=== PATIENT | female | born 1940 | race Caucasian/White ===

== ENCOUNTER 2017-09-08 16:22 | Inpatient (IN) | payer MEDICARE ==
[~2017-09-08] VITALS: Ht 162.6 cm; Wt 49.0 kg
[2017-09-08] VITALS (12 sets, daily range): BP systolic 74–129; BP diastolic 47–80
[~2017-09-08 16:22] MED LIST: ALBU8.5H IH; ALLO100T70 PO; AMLO-96 PO; AMOX-362 PO; ASPI-816 PO; CALC-734 PO; CHOL10005 PO; COLE3.756 PO; DIPH0.5D12 IM; DOCU-416 PO; ESOM40CA42 PO; EVOL140S PO; EVOL140S SC; EVOL140S SQ; EZET10TA41 PO; MULT-27 PO; OMEG-11 PO; OXYC-854 PO; PNEU0.5D3 IM; PRAV20TA65 PO; RANI-320 PO; RANI-324 PO; TRAZ-156 PO; UBID30CA27 PO; ZOLE5INF IV
[2017-09-08] MEDS ORDERED: NS(*) 0.9% 1000 ML BAG 1,000 ML IV ONE ×2 (16:34→17:15)
[2017-09-08] MEDS ORDERED: ALBUTEROL/IPRATROPIUM 3 ML NEB NEB ONE (16:35)
--- NOTE | 2017-09-08 16:38 | ER Report ---
History and Physical Time Seen By : 16:38 Hx. of Stated Complaint: PT HAD GALL BLADDER REMOVED FRIDAY AND EVER SINCE HAS BEEN WEAK AND DIZZY AND POOR APPETITE HPI/ROS onesimo released from the hospital yesterday sent home on oxygen Allergies: Coded Allergies: erythromycin base (Verified Allergy, Mild, epigastric pain, 09/06/17) atorvastatin (Verified Adverse Reaction, Intermediate, muscle pain in legs., 09/06/17) WILBERTO Inhibitors (Verified Adverse Reaction, Mild, cough, 09/06/17) NSAIDS (Non-Steroidal Anti-Inflamma (Unverified Adverse Reaction, Mild, upset stomach, 09/06/17) valsartan (Verified Adverse Reaction, Unknown, ineffective, 09/06/17) Home Meds Active Scripts Docusate Sodium (COLACE) 100 Mg Capsule, 1 CAP PO BID, #30 CAP 0 Refills TAKE WITH A FULL GLASS OF WATER Prov:SNOW ALVARADO MD 09/06/17 Oxycodone Hcl/Acet 5/325 Mg (ENDOCET 5-325 TABLET) 1 Each Tablet, 1-2 TAB PO Q4H Y for PAIN, #30 TAB 0 Refills Prov:SNOW ALVARADO MD 09/06/17 Trazodone Hcl (TRAZODONE HCL) 50 Mg Tablet, 50 MG PO QHS Y for insomnia, #90 TAB 2 Refills Prov:KATRINA WINTERS MD 03/31/17 Ranitidine Hcl (RANITIDINE HCL) 300 Mg Tablet, 300 MG PO QDAY, #90 TAB 1 Refill Prov:KATRINA WINTERS MD 03/17/17 Allopurinol (ALLOPURINOL) 100 Mg Tablet, 2 TAB PO QDAY, #180 TAB 4 Refills Prov:KATRINA WINTERS MD 11/27/16 Reported Medications Evolocumab (Repatha Syringe) 140 Mg/Ml Syringe, 140 MG SQ Q2WK 09/06/17 Amlodipine Besylate (AMLODIPINE BESYLATE) 5 Mg Tablet, 1 TAB PO BID, TAB 09/06/17 Aspirin (Children's Aspirin) 81 Mg Tab.chew, 1 TAB PO QDAY, #100 TAB.CHEW 4 Refills 03/29/15 Cholecalciferol (Vitamin D3) (VITAMIN D3) 1,000 Unit Tablet, 2 TAB PO QDAY 10/10/14 Calcium Carbonate/Vitamin D3 (CALCIUM 500 + D TABLET) 1 Each Tablet, 1 TAB PO QDAY 10/10/14 Mu-Vits-Min Th/Lycopene/Lutein (CENTRUM SILVER TABLET) 1 Each Tablet, 1 TAB PO QDAY 10/10/14 Discontinued Reported Medications Ubidecarenone (COQ-10) 30 Mg Capsule, 30 MG PO, CAPSULE 05/07/16 [place]-3 Fatty Acids/Fish Oil (FISH OIL 1,000 MG CAPSULE) 1 Each Capsule, 1 CAP PO TID, CAPSULE 10/10/14 Zoledronic Acid/Mannitol&Water (RECLAST 5 MG/100 ML SOLUTION) 5 Mg/100 Ml Infus..btl, 5 MG IV last dose 10/10/14 Discontinued Scripts Evolocumab (Repatha Syringe) 140 Mg/Ml Syringe, 140 MG SC Q2WK, #1 SYR 2 Refills Prov:KATRINA WINTERS MD 05/30/17 Albuterol Sulfate 90 Mcg/Act (PROAIR HFA 90 MCG/ACT) 8.5 Gm Hfa.aer.ad, 2 PUFF IH Q4-6H Y for SHORTNESS OF BREATH, #1 INHALER 12 Refills Prov:KATRINA WINTERS MD 03/05/17 Amoxicillin (AMOXICILLIN) 500 Mg Capsule, 4 CAP PO DIRECTED, #4 CAPSULE 4 capsules 1 hour before dental procedure Prov:KATRINA WINTERS MD 01/17/17 Amlodipine Besylate (AMLODIPINE BESYLATE) 5 Mg Tablet, 1.5 TAB PO QDAY, #135 TAB 4 Refills Prov:KATRINA WINTERS MD 11/27/16 Past Medical/Surgical History onesimo 2 days ago released yesterday Reviewed Nurses Notes: Yes Old Medical Records Reviewed: Yes Hx Smoking: No Smoking Status: Never Smoker Exposure to Second Hand Smoke?: No Hx Substance Use Disorder: No Hx Alcohol Use: No Family History of: HTN Constitutional Vital Sign - Last 24 Hours 09/08/17 09/08/17 09/08/17 09/08/17 16:22 16:26 16:26 16:29 Temp 98.4 Pulse ??? 92 Resp 18 B/P (MAP) 178/115 (136) 169/89 (115) Pulse Ox 74 O2 Delivery Room Air 09/08/17 09/08/17 09/08/1718/17 16:37 16:45 16:45 16:52 Pulse 86 86 87 Resp 16 14 14 Pulse Ox 95 93 O2 Delivery Nasal Cannula O2 Flow Rate 3.5 09/08/17 09/08/17 09/08/17 09/08/17 16:52 17:00 17:07 17:12 Pulse 87 88 89 Resp 27 19 30 B/P (MAP) 160/86 (110) Pulse Ox 98 94 94 09/08/17 09/08/17 09/08/17 09/08/17 17:26 17:27 17:30 17:42 Pulse 89 93 Resp 23 21 B/P (MAP) 155/77 (103) Pulse Ox 95 92 O2 Flow Rate 5.0 09/08/17 09/08/17 09/08/17 09/08/17 18:00 18:12 18:22 18:27 Pulse 94 97 Resp 15 19 B/P (MAP) 165/86 (112) 187/96 (126) Pulse Ox 86 95 09/08/17 09/08/17 09/08/17 09/08/17 18:29 18:29 18:30 18:32 Pulse 99 Resp 20 B/P (MAP) 195/99 (131) 185/98 (127) Pulse Ox 96 O2 Delivery Non-Rebreather O2 Flow Rate 10.0 09/08/17 09/08/17 09/08/17 09/08/17 18:39 18:42 18:57 19:00 Pulse 105 108 110 Resp 22 23 18 B/P (MAP) 191/99 (129) Pulse Ox 94 93 09/08/17 09/08/17 19:03 19:08 Pulse 105 Resp 32 B/P (MAP) 177/100 (125) Pulse Ox 94 Intake and Output 09/08/17 09/08/17 09/09/17 15:00 23:00 07:00 Intake Total 2050 ml Balance 2050 ml Physical Exam 77 year old alert head normocephalic and atraumatic, yesenia, tm non reddened, throat non reddened, mouth dry, heart rate regular rate 86, lungs crackles right base , abdomen soft mildly tender upper abdomen bandaids in place Medical Decision Making Data Points Result Diagram: 09/08/17 1645 09/08/17 1645 Laboratory Hematology Test 09/08/17 00:00 09/08/17 16:45 Urine Color Yellow Urine Clarity Clear Urine pH 6.0 pH (4.8-9.5) Urine Specific [place] 1.019 Urine Protein Negative mg/dL (NEGATIVE) Urine Glucose (UA) 50 mg/dL (NEGATIVE) Urine Ketones Negative mg/dL (NEGATIVE) Urine Blood Negative (NEGATIVE) Urine Nitrite Negative (NEGATIVE) Urine Bilirubin Negative (NEGATIVE) Urine Urobilinogen Negative mg/dL (0.2-1.9) Urine Leukocyte Esterase Negative (NEGATIVE) Urine RBC None /HPF (0-2/HPF) Urine WBC 1 /HPF (0-5/HPF) Urine Squamous Epithelial Cells Few /LPF (</=FEW) Urine Bacteria Negative /HPF (NONE-FEW) Urine Mucus None /HPF (NONE-FEW) Lactate 4.2 mmol/L (0.7-2.1) Amylase Level 41 U/L (0-110) Lipase 33 U/L (23-300) Red Blood Count 4.93 M/uL (4.17-5.56) Mean Corpuscular Volume 88.6 fL (80.0-96.0) Mean Corpuscular Hemoglobin 29.4 pg (26.0-33.0) Mean Corpuscular Hemoglobin Concent 33.2 g/dL (32.0-36.0) Red Cell Distribution Width 13.5 % (11.5-14.5) Mean Platelet Volume 7.8 fL (7.2-11.1) Neutrophils (%) (Auto) 91.4 % (39.4-72.5) Lymphocytes (%) (Auto) 3.7 % (17.6-49.6) Monocytes (%) (Auto) 4.6 % (4.1-12.4) Eosinophils (%) (Auto) 0.1 % (0.4-6.7) Basophils (%) (Auto) 0.2 % (0.3-1.4) Nucleated RBC Relative Count (auto) 0.0 /100WBC Neutrophils # (Auto) 10.4 K/uL (2.0-7.4) Lymphocytes # (Auto) 0.4 K/uL (1.3-3.6) Monocytes # (Auto) 0.5 K/uL (0.3-1.0) Eosinophils # (Auto) 0.0 K/uL (0.0-0.5) Basophils # (Auto) 0.0 K/uL (0.0-0.1) Nucleated RBC Absolute Count (auto) 0.00 K/uL Peripheral Blood Smear Yes Y/N D-Dimer Quantitative (PE/DVT) 3.82 ug/ml (0-0.50) Sodium Level 130 mmol/L (137-145) Potassium Level 3.9 mmol/L (3.5-5.0) Chloride Level 90 mmol/L (98-107) Carbon Dioxide Level 25 mmol/L (22-31) Blood Urea Nitrogen 18 mg/dl (7-18) Creatinine 0.80 mg/dl (0.52-1.04) Glomerular Filtration Rate Calc > 60.0 Random Glucose 132 mg/dl (75-110) Calcium Level 9.2 mg/dl (8.4-10.2) Magnesium Level 1.7 mg/dl (1.7-2.2) Total Bilirubin 3.0 mg/dl (0.2-1.3) Aspartate Amino Transf (AST/SGOT) 206 U/L (0-35) Alanine Aminotransferase (ALT/SGPT) 586 U/L (0-56) Alkaline Phosphatase 188 U/L (0-126) Troponin I < 0.012 ng/ml B-Type Natriuretic Peptide 375 pg/ml (0-100) Total Protein 7.4 gm/dl (6.3-8.2) Albumin 3.9 g/dl (3.5-5.0) Chemistry Test 09/08/17 00:00 09/08/17 16:45 Urine Color Yellow Urine Clarity Clear Urine pH 6.0 pH (4.8-9.5) Urine Specific [place] 1.019 Urine Protein Negative mg/dL (NEGATIVE) Urine Glucose (UA) 50 mg/dL (NEGATIVE) Urine Ketones Negative mg/dL (NEGATIVE) Urine Blood Negative (NEGATIVE) Urine Nitrite Negative (NEGATIVE) Urine Bilirubin Negative (NEGATIVE) Urine Urobilinogen Negative mg/dL (0.2-1.9) Urine Leukocyte Esterase Negative (NEGATIVE) Urine RBC None /HPF (0-2/HPF) Urine WBC 1 /HPF (0-5/HPF) Urine Squamous Epithelial Cells Few /LPF (</=FEW) Urine Bacteria Negative /HPF (NONE-FEW) Urine Mucus None /HPF (NONE-FEW) Lactate 4.2 mmol/L (0.7-2.1) Amylase Level 41 U/L (0-110) Lipase 33 U/L (23-300) White Blood Count 11.4 k/uL (4.5-11.0) Red Blood Count 4.93 M/uL (4.17-5.56) Hemoglobin 14.5 g/dL (12.0-16.0) Hematocrit 43.7 % (34.0-47.0) Mean Corpuscular Volume 88.6 fL (80.0-96.0) Mean Corpuscular Hemoglobin 29.4 pg (26.0-33.0) Mean Corpuscular Hemoglobin Concent 33.2 g/dL (32.0-36.0) Red Cell Distribution Width 13.5 % (11.5-14.5) Platelet Count 244 K/uL (150-450) Mean Platelet Volume 7.8 fL (7.2-11.1) Neutrophils (%) (Auto) 91.4 % (39.4-72.5) Lymphocytes (%) (Auto) 3.7 % (17.6-49.6) Monocytes (%) (Auto) 4.6 % (4.1-12.4) Eosinophils (%) (Auto) 0.1 % (0.4-6.7) Basophils (%) (Auto) 0.2 % (0.3-1.4) Nucleated RBC Relative Count (auto) 0.0 /100WBC Neutrophils # (Auto) 10.4 K/uL (2.0-7.4) Lymphocytes # (Auto) 0.4 K/uL (1.3-3.6) Monocytes # (Auto) 0.5 K/uL (0.3-1.0) Eosinophils # (Auto) 0.0 K/uL (0.0-0.5) Basophils # (Auto) 0.0 K/uL (0.0-0.1) Nucleated RBC Absolute Count (auto) 0.00 K/uL Peripheral Blood Smear Yes Y/N D-Dimer Quantitative (PE/DVT) 3.82 ug/ml (0-0.50) Glomerular Filtration Rate Calc > 60.0 Calcium Level 9.2 mg/dl (8.4-10.2) Magnesium Level 1.7 mg/dl (1.7-2.2) Total Bilirubin 3.0 mg/dl (0.2-1.3) Aspartate Amino Transf (AST/SGOT) 206 U/L (0-35) Alanine Aminotransferase (ALT/SGPT) 586 U/L (0-56) Alkaline Phosphatase 188 U/L (0-126) Troponin I < 0.012 ng/ml B-Type Natriuretic Peptide 375 pg/ml (0-100) Total Protein 7.4 gm/dl (6.3-8.2) Albumin 3.9 g/dl (3.5-5.0) Coagulation Test 09/08/17 16:45 D-Dimer Quantitative (PE/DVT) 3.82 ug/ml Urinalysis Test 09/08/17 00:00 Urine Color Yellow Urine Clarity Clear Urine pH 6.0 pH (4.8-9.5) Urine Specific [place] 1.019 Urine Protein Negative mg/dL (NEGATIVE) Urine Glucose (UA) 50 mg/dL (NEGATIVE) Urine Ketones Negative mg/dL (NEGATIVE) Urine Blood Negative (NEGATIVE) Urine Nitrite Negative (NEGATIVE) Urine Bilirubin Negative (NEGATIVE) Urine Urobilinogen Negative mg/dL (0.2-1.9) Urine Leukocyte Esterase Negative (NEGATIVE) Urine RBC None /HPF (0-2/HPF) Urine WBC 1 /HPF (0-5/HPF) Urine Squamous Epithelial Cells Few /LPF (</=FEW) Urine Bacteria Negative /HPF (NONE-FEW) Urine Mucus None /HPF (NONE-FEW) EKG/Imaging EKG Interpretation q wave III discussed w anesthesiology, trop tonight is negative Imaging FACILITY: [facility] PATIENT NAME: Meenakshi De La Garza : 1940 MR: [id number] V: [id number] EXAM DATE: ORDERING PHYSICIAN: NEVILLE SHI TECHNOLOGIST: [place] [facility] [place] Meenakshi De La Garza : 1940 Visit/Account:[id number] Date of Sevice: 09/08/2017 EXAMINATION: CTA of the chest with IV contrast CT abdomen/pelvis with IV contrast HISTORY: Dyspnea. Low O2 sats. Elevated LFTs. Post cholecystectomy. TECHNIQUE: Pulmonary embolus protocol - Thin-slice axial imaging of the chest was performed during maximal pulmonary arterial opacification with IV contrast. 3D slab MIPs and 2D reconstructions in the coronal and sagittal planes were performed to aid pulmonary embolus detection. Sensory Scientist images have been stored on PACS. Axial CT images of the abdomen and pelvis were then obtained with IV contrast, with coronal and sagittal 2D reconstructed images. One of the following dose optimization techniques was utilized in the performance of this exam: Automated exposure control; adjustment of the mA and/ or kV according to the patient's size; or use of an iterative reconstruction technique. Specific details can be referenced in the facility's radiology CT exam operational policy. Contrast: 75 mL of IV Isovue-370. COMPARISON: CT abdomen/pelvis 09/06/2017. FINDINGS: Chest: Pulmonary arteries: The pulmonary arteries are well opacified, without suspicious filling defect. Heart, aorta, and great vessels: Normal caliber thoracic aorta. Vascular calcifications, including coronary artery calcifications. Borderline cardiac enlargement. No pericardial effusion. Lungs and pleura: Small to moderate layering right pleural effusion. There is consolidation and volume loss in the posterior inferior right lower lobe which may all be due to atelectasis, although superimposed infiltrate is not excluded. Trace amount of layering left-sided pleural fluid, with mild left basilar atelectasis. Small focus of patchy airspace disease in the right upper lobe laterally. There is mild interlobular septal thickening in the mid and upper lungs which may represent pulmonary edema. The central airways are patent. No pneumothorax. Mediastinum and joe: Negative. Chest wall: Negative. Bones: No acute osseous findings. Scattered degenerative changes along spine. Abdomen/pelvis: Liver: There is a moderate-sized crescentic collection of complex loculated fluid surrounding the right lobe of the liver, extending along the anterior and lateral margin of the right hepatic lobe and continuing superiorly along the dome of the liver. This crescentic fluid collection measures up to 2.8 cm in thickness. This collection demonstrates several bubbles of internal air with a thin rim of peripheral enhancement. Fluid is in continuity with the gallbladder fossa where there is an additional small pocket of complex fluid. CT appearance is suspicious for a bile leak with associated biloma. Superimposed infection is not excluded. No parenchymal liver mass. The hepatic veins and portal veins are patent. Gallbladder and bile ducts: The gallbladder is surgically absent. No bile duct dilatation. Spleen: Negative. Pancreas: Negative. Adrenal glands: Negative. Kidneys: Subcentimeter hypodensities in both kidneys likely represent small cysts. Bowel and peritoneum: The small bowel and colon are normal in caliber. No bowel obstruction. Small amount of free intraperitoneal air related to the recent surgery. There is no other free fluid present in the abdomen or pelvis. Pelvic structures: Negative. Lymph node assessment: Negative. Vessels: Moderate vascular calcifications. Normal caliber abdominal aorta. The IVC is patent. Musculoskeletal: Scattered degenerative changes along the spine. No acute osseous findings. Body wall: Surgical changes along the anterior abdominal wall related to the recent surgical procedure. No discrete fluid collection or hematoma along the abdominal wall. IMPRESSION: 1. No evidence of pulmonary embolism. 2. Small to moderate layering right pleural effusion, with a trace of left- sided pleural fluid.2. Bibasilar atelectasis, greater on the right. Superimposed infiltrate not excluded. Additional small focus of patchy airspace disease in the right upper lobe laterally may be infectious or inflammatory. Likely mild interstitial edema. 4. New surgical changes in the abdomen compatible with the recent cholecystectomy. 5. Complex loculated crescentic fluid collection surrounding the anterior, superior, and lateral aspect of the right hepatic lobe, in continuity with the gallbladder fossa, suspicious for a bile leak and associated biloma. This crescentic collection measures up to 2.8 cm in thickness and approximately 15 cm in length, encasing the right hepatic lobe. 6. Small amount of scattered free intraperitoneal air, within normal limits for the postsurgical timeframe. No additional free fluid in the abdomen or pelvis. Findings were discussed with NEVILLE SHI at 09/08/2017 7:04 PM. Report Dictated By: Sánchez Manzo MD at 09/08/2017 6:42 PM Report E-Signed By: Sánchez Manzo MD at 09/08/2017 7:04 PM WSN:[id number]: [facility] ED Course/Re-evaluation Clinical Indication for ER IV: Hydration ED Course iv ns 1 liter was given , increased sob after iv infusion wheezing sats dropped lasix 40 iv , young cath and duoneb given Re-evaluation dr alvarado called and saw the patient in the er will take her to or from er. a dose of zosyn and pepcid given er Decision to Disposition Date: Sep 08, 2017 Decision to Disposition Time: 19:06 Depart Departure Latest Vital Signs Vital Signs Date Time Temp Pulse Resp B/P (MAP) Pulse Ox O2 Delivery O2 Flow Rate FiO2 09/08/17 19:08 105 32 94 09/08/17 19:03 177/100 (125) 09/08/17 18:29 Non-Rebreather 10.0 09/08/17 16:26 98.4 Impression: Primary Impression: Biloma following surgery Additional Impressions: Pleural effusion Acute electrocardiogram changes Condition: Condition Unchanged Disposition: ADMIT FROM ER TO OR Referrals: KATRINA WINTERS MD (PCP) Problem Qualifiers NEVILLE SHI APRN-C Sep 08, 2017 16:38
--- NOTE | 2017-09-08 16:41 | EKG ---
FACILITY: [facility] - [place] PATIENT NAME: SAE FREY : [id number] MR: [id number] V: [id number] EXAM DATE: ORDERING PHYSICIAN: NEVILLE SHI TECHNOLOGIST: PATRICIA Test Reason : WEAKNESS Blood Pressure : / mmHG Vent. Rate : 086 BPM Atrial Rate : 086 BPM P-R Int : 136 ms QRS Dur : 082 ms QT Int : 370 ms P-R-T Axes : 024 004 002 degrees QTc Int : 442 ms Sinus rhythm Possible left atrial enlargement Decreased R wave progression anteriorly Allowing for differences in lead placement - fairly similar to previous EKGs Confirmed by FLORENTIN WOODALL ([id number]) on 09/08/2017 8:00:48 PM Referred By: JOSE Confirmed By:FLORENTIN WOODALL
[2017-09-08 16:56] LABS: PLATELET COUNT, AUTOMATED 244 K/uL (150-450)
--- NOTE | 2017-09-08 17:09 | RADIOLOGY IMAGING REPORT ---
FACILITY: [facility] PATIENT NAME: Meenakshi De La Garza : 1940 MR: [id number] V: [id number] EXAM DATE: ORDERING PHYSICIAN: NEVILLE SHI TECHNOLOGIST: Location: [facility] Patient: Meenakshi De La Garza : 1940 Visit/Account:[id number] Date of Sevice: 09/08/2017 CHEST SINGLE AP INDICATION: RESP DISTRESS COMPARISON: 04/03/2016 FINDINGS: Cardiac silhouette is enlarged. The lung volumes are hypoventilated. There is a small right pleural effusion present with underlying atelectasis versus infiltrate. Atelectasis present at the left lung base.. There is mild dilatation of the colon noted underneath the left hemidiaphragm. IMPRESSION: 1. Pulmonary hypoventilation with bibasilar atelectasis and right pleural effusion. Infiltrate is n ot excluded at the right lung base. 2. Mild gaseous distention of the descending colon Report Dictated By: Jeb Campbell at 09/08/2017 5:00 PM Report E-Signed By: Jeb Campbell at 09/08/2017 5:05 PM WSN:[id number]
[2017-09-08] MEDS ORDERED: IOPAMIDOL 76% 75 ML INFUS BTL 75 ML ONE (17:19)
[2017-09-08] MEDS ORDERED: NS 0.9% 50 ML VIAL 50 ML ONE (17:19)
[2017-09-08] MEDS ORDERED: fentaNYL CITR 100 MCG/2 ML AMP IVP ONE ×2 (17:55→19:05)
[2017-09-08] MEDS ORDERED: ALBUTEROL 2.5 MG/3 ML NEB NEB ONE (18:25)
[2017-09-08] MEDS ORDERED: FUROSEMIDE 40 MG/4 ML VIAL IVP ONE (18:45)
--- NOTE | 2017-09-08 19:09 | RADIOLOGY IMAGING REPORT ---
FACILITY: [facility] PATIENT NAME: Meenakshi De La Garza : 1940 MR: [id number] V: [id number] EXAM DATE: ORDERING PHYSICIAN: NEVILLE SHI TECHNOLOGIST: Location: [facility] Patient: Meenakshi De La Garza : 1940 Visit/Account:[id number] Date of Sevice: 09/08/2017 EXAMINATION: CTA of the chest with IV contrast CT abdomen/pelvis with IV contrast HISTORY: Dyspnea. Low O2 sats. Elevated LFTs. Post cholecystectomy. TECHNIQUE: Pulmonary embolus protocol - Thin-slice axial imaging of the chest was performed during maximal pulmonary arterial opacification with IV contrast. 3D slab MIPs and 2D reconstructions in the coronal and sagittal planes were performed to aid pulmonary embolus detection. Industrial Electrical Technician images have been stored on PACS. Axial CT images of the abdomen and pelvis were then obtained with IV contrast, with coronal and sagit jose 2D reconstructed images. One of the following dose optimization techniques was utilized in the performance of this exam: Autom ated exposure control; adjustment of the mA and/or kV according to the patient's size; or use of an i terative reconstruction technique. Specific details can be referenced in the facility's radiology C T exam operational policy. Contrast: 75 mL of IV Isovue-370. COMPARISON: CT abdomen/pelvis 09/06/2017. FINDINGS: Chest: Pulmonary arteries: The pulmonary arteries are well opacified, without suspicious filling defect. Heart, aorta, and great vessels: Normal caliber thoracic aorta. Vascular calcifications, including c oronary artery calcifications. Borderline cardiac enlargement. No pericardial effusion. Lungs and pleura: Small to moderate layering right pleural effusion. There is consolidation and volu me loss in the posterior inferior right lower lobe which may all be due to atelectasis, although supe rimposed infiltrate is not excluded. Trace amount of layering left-sided pleural fluid, with mild lef t basilar atelectasis. Small focus of patchy airspace disease in the right upper lobe laterally. Ther e is mild interlobular septal thickening in the mid and upper lungs which may represent pulmonary josiane ma. The central airways are patent. No pneumothorax. Mediastinum and joe: Negative. Chest wall: Negative. Bones: No acute osseous findings. Scattered degenerative changes along spine. Abdomen/pelvis: Liver: There is a moderate-sized crescentic collection of complex loculated fluid surrounding the ri ght lobe of the liver, extending along the anterior and lateral margin of the right hepatic lobe and continuing superiorly along the dome of the liver. This crescentic fluid collection measures up to 2. 8 cm in thickness. This collection demonstrates several bubbles of internal air with a thin rim of pe ripheral enhancement. Fluid is in continuity with the gallbladder fossa where there is an additional small pocket of complex fluid. CT appearance is suspicious for a bile leak with associated biloma. Tubbs perimposed infection is not excluded. No parenchymal liver mass. The hepatic veins and portal veins are patent. Gallbladder and bile ducts: The gallbladder is surgically absent. No bile duct dilatation. Spleen: Negative. Pancreas: Negative. Adrenal glands: Negative. Kidneys: Subcentimeter hypodensities in both kidneys likely represent small cysts. Bowel and peritoneum: The small bowel and colon are normal in caliber. No bowel obstruction. Small a mount of free intraperitoneal air related to the recent surgery. There is no other free fluid present in the abdomen or pelvis. Pelvic structures: Negative. Lymph node assessment: Negative. Vessels: Moderate vascular calcifications. Normal caliber abdominal aorta. The IVC is patent. Musculoskeletal: Scattered degenerative changes along the spine. No acute osseous findings. Body wall: Surgical changes along the anterior abdominal wall related to the recent surgical procedu re. No discrete fluid collection or hematoma along the abdominal wall. IMPRESSION: 1. No evidence of pulmonary embolism. 2. Small to moderate layering right pleural effusion, with a trace of left-sided pleural fluid.2. Bib asilar atelectasis, greater on the right. Superimposed infiltrate not excluded. Additional small focu s of patchy airspace disease in the right upper lobe laterally may be infectious or inflammatory. Lik jose mild interstitial edema. 4. New surgical changes in the abdomen compatible with the recent cholecystectomy. 5. Complex loculated crescentic fluid collection surrounding the anterior, superior, and lateral aspe ct of the right hepatic lobe, in continuity with the gallbladder fossa, suspicious for a bile leak an d associated biloma. This crescentic collection measures up to 2.8 cm in thickness and approximately 15 cm in length, encasing the right hepatic lobe. 6. Small amount of scattered free intraperitoneal air, within normal limits for the postsurgical time frame. No additional free fluid in the abdomen or pelvis. Findings were discussed with NEVILLE SHI at 09/08/2017 7:04 PM. Report Dictated By: Sánchez Manzo MD at 09/08/2017 6:42 PM Report E-Signed By: Sánchez Manzo MD at 09/08/2017 7:04 PM WSN:[id number]
[2017-09-08] MEDS ORDERED: PIPERACILLIN/TAZO*3.375GM VIAL 3.375 GM in NS(*) 0.9% 100 ML ADDVANT BAG 100 ML IVPB ONE (19:10)
[2017-09-08] MEDS ORDERED: FAMOTIDINE(*) 20MG/50ML PREMIX 50 ML IVPB ONE (19:15)
[2017-09-08] MEDS ORDERED: LR(*) 1000 ML BAG 1,000 ML ONE (19:17)
--- NOTE | 2017-09-08 19:22 | Gen Surgery History & Physical ---
History of Present Illness Chief Complaint Abdominal pain, shortness of breath, weakness History of Present Illness 77-year-old female, postoperative day 2 from a laparoscopic cholecystectomy for cholecystitis, discharged to home yesterday, presents with worsening abdominal pain and shortness of breath as well as weakness that started last evening. She presented to the emergency room where her white count is mildly elevated, her transaminases and total bilirubin are mildly elevated, and CT scan is consistent with a biloma. She is being admitted and taken to surgery to address this. History Problems: (1) S/P laparoscopic cholecystectomy Status: Acute (2) Esophageal reflux Status: Chronic (3) Age related osteoporosis Status: Chronic (4) Hypercholesterolemia Status: Chronic (5) Hypertension, benign Status: Chronic Home Meds Active Scripts Docusate Sodium (COLACE) 100 Mg Capsule, 1 CAP PO BID, #30 CAP 0 Refills TAKE WITH A FULL GLASS OF WATER Prov:SNOW ALVARADO MD 09/06/17 Oxycodone Hcl/Acet 5/325 Mg (ENDOCET 5-325 TABLET) 1 Each Tablet, 1-2 TAB PO Q4H Y for PAIN, #30 TAB 0 Refills Prov:SNOW ALVARADO MD 09/06/17 Trazodone Hcl (TRAZODONE HCL) 50 Mg Tablet, 50 MG PO QHS Y for insomnia, #90 TAB 2 Refills Prov:KATRINA WINTERS MD 03/31/17 Ranitidine Hcl (RANITIDINE HCL) 300 Mg Tablet, 300 MG PO QDAY, #90 TAB 1 Refill Prov:KATRINA WINTERS MD 03/17/17 Allopurinol (ALLOPURINOL) 100 Mg Tablet, 2 TAB PO QDAY, #180 TAB 4 Refills Prov:KATRINA WINTERS MD 11/27/16 Reported Medications Evolocumab (Repatha Syringe) 140 Mg/Ml Syringe, 140 MG SQ Q2WK 09/06/17 Amlodipine Besylate (AMLODIPINE BESYLATE) 5 Mg Tablet, 1 TAB PO BID, TAB 09/06/17 Aspirin (Children's Aspirin) 81 Mg Tab.chew, 1 TAB PO QDAY, #100 TAB.CHEW 4 Refills 03/29/15 Cholecalciferol (Vitamin D3) (VITAMIN D3) 1,000 Unit Tablet, 2 TAB PO QDAY 10/10/14 Calcium Carbonate/Vitamin D3 (CALCIUM 500 + D TABLET) 1 Each Tablet, 1 TAB PO QDAY 10/10/14 Mu-Vits-Min Th/Lycopene/Lutein (CENTRUM SILVER TABLET) 1 Each Tablet, 1 TAB PO QDAY 10/10/14 Discontinued Reported Medications Ubidecarenone (COQ-10) 30 Mg Capsule, 30 MG PO, CAPSULE 05/07/16 [place]-3 Fatty Acids/Fish Oil (FISH OIL 1,000 MG CAPSULE) 1 Each Capsule, 1 CAP PO TID, CAPSULE 10/10/14 Zoledronic Acid/Mannitol&Water (RECLAST 5 MG/100 ML SOLUTION) 5 Mg/100 Ml Infus..btl, 5 MG IV last dose 10/10/14 Discontinued Scripts Evolocumab (Repatha Syringe) 140 Mg/Ml Syringe, 140 MG SC Q2WK, #1 SYR 2 Refills Prov:KATRINA WINTERS MD 05/30/17 Albuterol Sulfate 90 Mcg/Act (PROAIR HFA 90 MCG/ACT) 8.5 Gm Hfa.aer.ad, 2 PUFF IH Q4-6H Y for SHORTNESS OF BREATH, #1 INHALER 12 Refills Prov:KATRINA WINTERS MD 03/05/17 Amoxicillin (AMOXICILLIN) 500 Mg Capsule, 4 CAP PO DIRECTED, #4 CAPSULE 4 capsules 1 hour before dental procedure Prov:KATRINA WINTERS MD 01/17/17 Amlodipine Besylate (AMLODIPINE BESYLATE) 5 Mg Tablet, 1.5 TAB PO QDAY, #135 TAB 4 Refills Prov:KATRINA WINTERS MD 11/27/16 Allergies: Coded Allergies: erythromycin base (Verified Allergy, Mild, epigastric pain, 09/06/17) atorvastatin (Verified Adverse Reaction, Intermediate, muscle pain in legs., 09/06/17) WILBERTO Inhibitors (Verified Adverse Reaction, Mild, cough, 09/06/17) NSAIDS (Non-Steroidal Anti-Inflamma (Unverified Adverse Reaction, Mild, upset stomach, 09/06/17) valsartan (Verified Adverse Reaction, Unknown, ineffective, 09/06/17) Patient History: FH: COPD (chronic obstructive pulmonary disease) FATHER, , Age:62 FH: [place] (myocardial infarction) FATHER, , Age:62 BROTHER, , Age:40 FH: hyperlipidemia FATHER, , Age:62 SISTER FH: hypertension FATHER, , Age:62 SISTER FH: renal cell carcinoma MOTHER, , Age:86 (kidney or pancreas) Gout FATHER, , Age:62 Review of Systems All Systems Reviewed/Normal: Yes, Except as Noted Respiratory: Shortness of Breath Gastrointestinal: Abdominal Pain Exam General Appearance: Alert, Awake, No Acute Distress, Afebrile Neuro: No Gross deficits Eyes: PERRLA GI: Other (soft, mild diffuse tenderness palpation greatest in the right upper quadrant.) Extremities: Warm, Perfused Medical Decision Making Data Points Result Diagram: 09/08/17 16409/08/17 164 Assessment and Plan Problems: (1) Biloma following surgery Status: Acute Assessment & Plan: Will admit, nothing by mouth, IV fluids, 2 OR for laparoscopy with evacuation of the perihepatic fluid, we'll look for any evidence of bleeding or bile leak, try to control it if possible, and place a drain. I have explained this plan including the procedure to the patient and her and they seem to be agreeable with proceeding with this plan. Condition Stable Time Spent: < 30 min Venous Thromboembolism VTE Risk Physician Assess for VTE Risk: Yes Patient's VTE Risk: Low VTE Diagnostic Test 2 Days Prior to Admit: No Antithrombotics Is Pt On Any Antithrombotics?: No Problem Qualifiers (1) Biloma following surgery: Encounter type: initial encounter Qualified Codes: T81.89XA - Other complications of procedures, not elsewhere classified, initial encounter; K66.8 - Other specified disorders of peritoneum SNOW ALVARADO MD Sep 08, 2017 19:22
[2017-09-08] MEDS ORDERED: ONDANSETRON 4 MG/2 ML VIAL ONE (20:04)
[2017-09-08] MEDS ORDERED: SUCCINYLCHOL CHL 200MG/10ML VL ONE (20:04)
[2017-09-08] MEDS ORDERED: PROPOFOL EMUL(*) 10MG/ML 20 ML 20 ML ONE (20:04)
[2017-09-08] MEDS ORDERED: LIDOCAINE MPF 1% 5 ML VIAL ONE (20:04)
[2017-09-08] MEDS ORDERED: DEXAMETHASONE SOD PHOS 10MG/ML ONE (20:04)
[2017-09-08] MEDS ORDERED: ROCURONIUM BROM 10 MG/ML 10 ML ONE (20:07)
[2017-09-08] MEDS ORDERED: PHENYLEPHRINE/NS/PF 0.4MG/10ML ONE (20:18)
[2017-09-08] MEDS ORDERED: HYDROmorphone HCL 2 MG/ML SDV ONE (21:24)
[2017-09-08] MEDS ORDERED: PROPOFOL(*)1000 MG/100 ML VIAL 100 ML ONE (21:33)
[2017-09-08] MEDS ORDERED: FLUSH 10 ML SYR IVP PRN (21:50)
[2017-09-08] MEDS ORDERED: ONDANSETRON 4 MG/2 ML VIAL IVP PRN (21:50)
--- NOTE | 2017-09-08 22:05 | Post Operative Progress Note ---
Post Operative Progress Note Date: Sep 08, 2017 Time: 21:50 Surgeon: [place] Dictation number: [id number] on M*Modal Mobile Fluency via cellphone dictation Anesthesia: GETA by Dr. Barnes Pre-Op Diagnosis: Postop bile leak with biloma Post-Op Diagnosis: YORDAN Findings: Leaking duct in gallbladder fossa Procedure(s): Exploratory laparoscopy Control of bile leak Abdominal washout Drain placement Specimen Removed:(May be N/A): None Complications: None Fluids: See anesthesia record Estimated Blood Loss: Minimal Date OP Note Dictated: Sep 08, 2017 Time OP Note Dictated: 21:51 SNOW ALVARADO MD Sep 08, 2017 22:05
[2017-09-08] MEDS: PROPOFOL(*)1000 MG/100 ML VIAL 100 ML IV PRN (22:14)
[2017-09-08] MEDS: NS(*) 0.9% 1000 ML BAG 1,000 ML IV PRN (22:15)
--- NOTE | 2017-09-08 22:21 | Hospitalist Consultation ---
History of Present Illness Requesting Physician Dr. Alvarado Reason for Consult Ventilator management Chief Complaint Abdominal pain History of Present Illness 77yo female with PMHx significant for recent laparoscopic cholecystectomy complicated by bile leak. She returned to the OR late today for surgical management. Anesthesia (Dr. Barnes) was concerned about her respiratory status and ability to be extubated immediately after surgery. He recommended keeping her intubated at least overnight and re-evaluating in the morning. Her pre-op evaluation did reveal a right-sided pleural effusion most likely a "sympathetic " effusion related to the bile leak. CT pulmonary angiogram was negative for PE. She did have fairly high oxygen requirement as well. The patient is currently sedated and not able to offer any information. History Problems: (1) Hypertension, benign Status: Chronic (2) Hypercholesterolemia Status: Chronic (3) Esophageal reflux Status: Chronic (4) S/P laparoscopic cholecystectomy Status: Acute Home Meds Active Scripts Docusate Sodium (COLACE) 100 Mg Capsule, 1 CAP PO BID, #30 CAP 0 Refills TAKE WITH A FULL GLASS OF WATER Prov:SNOW ALVARADO MD 09/06/17 Oxycodone Hcl/Acet 5/325 Mg (ENDOCET 5-325 TABLET) 1 Each Tablet, 1-2 TAB PO Q4H Y for PAIN, #30 TAB 0 Refills Prov:SNOW ALVARADO MD 09/06/17 Trazodone Hcl (TRAZODONE HCL) 50 Mg Tablet, 50 MG PO QHS Y for insomnia, #90 TAB 2 Refills Prov:KATRINA WINTERS MD 03/31/17 Ranitidine Hcl (RANITIDINE HCL) 300 Mg Tablet, 300 MG PO QDAY, #90 TAB 1 Refill Prov:KATRINA WINTERS MD 03/17/17 Allopurinol (ALLOPURINOL) 100 Mg Tablet, 2 TAB PO QDAY, #180 TAB 4 Refills Prov:KATRINA WINTERS MD 11/27/16 Reported Medications Evolocumab (Repatha Syringe) 140 Mg/Ml Syringe, 140 MG SQ Q2WK 09/06/17 Amlodipine Besylate (AMLODIPINE BESYLATE) 5 Mg Tablet, 1 TAB PO BID, TAB 09/06/17 Aspirin (Children's Aspirin) 81 Mg Tab.chew, 1 TAB PO QDAY, #100 TAB.CHEW 4 Refills 03/29/15 Cholecalciferol (Vitamin D3) (VITAMIN D3) 1,000 Unit Tablet, 2 TAB PO QDAY 10/10/14 Calcium Carbonate/Vitamin D3 (CALCIUM 500 + D TABLET) 1 Each Tablet, 1 TAB PO QDAY 10/10/14 Mu-Vits-Min Th/Lycopene/Lutein (CENTRUM SILVER TABLET) 1 Each Tablet, 1 TAB PO QDAY 10/10/14 Discontinued Reported Medications Ubidecarenone (COQ-10) 30 Mg Capsule, 30 MG PO, CAPSULE 05/07/16 [place]-3 Fatty Acids/Fish Oil (FISH OIL 1,000 MG CAPSULE) 1 Each Capsule, 1 CAP PO TID, CAPSULE 10/10/14 Zoledronic Acid/Mannitol&Water (RECLAST 5 MG/100 ML SOLUTION) 5 Mg/100 Ml Infus..btl, 5 MG IV last dose 10/10/14 Discontinued Scripts Evolocumab (Repatha Syringe) 140 Mg/Ml Syringe, 140 MG SC Q2WK, #1 SYR 2 Refills Prov:KATRINA WINTERS MD 05/30/17 Albuterol Sulfate 90 Mcg/Act (PROAIR HFA 90 MCG/ACT) 8.5 Gm Hfa.aer.ad, 2 PUFF IH Q4-6H Y for SHORTNESS OF BREATH, #1 INHALER 12 Refills Prov:KATRINA WINTERS MD 03/05/17 Amoxicillin (AMOXICILLIN) 500 Mg Capsule, 4 CAP PO DIRECTED, #4 CAPSULE 4 capsules 1 hour before dental procedure Prov:KATRINA WINTERS MD 01/17/17 Amlodipine Besylate (AMLODIPINE BESYLATE) 5 Mg Tablet, 1.5 TAB PO QDAY, #135 TAB 4 Refills Prov:KATRINA WINTERS MD 11/27/16 Allergies: Coded Allergies: erythromycin base (Verified Allergy, Mild, epigastric pain, 09/06/17) atorvastatin (Verified Adverse Reaction, Intermediate, muscle pain in legs., 09/06/17) WILBERTO Inhibitors (Verified Adverse Reaction, Mild, cough, 09/06/17) NSAIDS (Non-Steroidal Anti-Inflamma (Unverified Adverse Reaction, Mild, upset stomach, 09/06/17) valsartan (Verified Adverse Reaction, Unknown, ineffective, 09/06/17) Patient History: FH: COPD (chronic obstructive pulmonary disease) FATHER, , Age:62 FH: [place] (myocardial infarction) FATHER, , Age:62 BROTHER, , Age:40 FH: hyperlipidemia FATHER, , Age:62 SISTER FH: hypertension FATHER, , Age:62 SISTER FH: renal cell carcinoma MOTHER, , Age:86 (kidney or pancreas) Gout FATHER, , Age:62 Hx Smoking: No Smoking Status: Never Smoker Exposure to Second Hand Smoke?: No Hx Alcohol Use: No Review of Systems Other Unable to obtain at present. Exam Vital Signs Vital Signs Date Time Temp Pulse Resp B/P (MAP) Pulse Ox O2 Delivery O2 Flow Rate FiO2 09/08/17 20:05 ??? 24 95 09/08/17 20:00 191/87 (121) 09/08/17 18:29 Non-Rebreather 10.0 09/08/17 16:26 98.4 General Appearance: Other (sedated on ventilator) ENT: Other (ET tube in place) Cardiovascular: Regular Rate and Rhythm Respiratory: Other (fairly clear with some coarse ventilator sounds) Extremities: Warm, Perfused Medical Decision Making Data Points Result Diagram: 09/08/17 1645 09/08/17 1645 Item Value Date Time Albumin 3.9 g/dl 09/08/17 1645 Total Protein 7.4 gm/dl 09/08/17 1645 B-Type Natriuretic Peptide 375 pg/ml H 09/08/17 1645 Troponin I < 0.012 ng/ml 09/08/17 1645 Alkaline Phosphatase 188 U/L H 09/08/17 1645 Alanine Aminotransferase (ALT/SGPT) 586 U/L H 09/08/17 1645 Aspartate Amino Transf (AST/SGOT) 206 U/L H 09/08/17 1645 Total Bilirubin 3.0 mg/dl H 09/08/17 1645 Magnesium Level 1.7 mg/dl 09/08/17 1645 Calcium Level 9.2 mg/dl 09/08/17 1645 Lactate 4.2 mmol/L *H 09/08/17 0000 EKG / Imaging Imaging PATIENT NAME: Meenakshi De La Garza : 1940 MR: [id number] V: [id number] EXAM DATE: ORDERING PHYSICIAN: NEVILLE SHI TECHNOLOGIST: Location: [facility] - [place] Patient: Meenakshi De La Garza DOB: 1940 Visit/Account:[id number] Date of Sevice: 09/08/2017 EXAMINATION: CTA of the chest with IV contrast CT abdomen/pelvis with IV contrast HISTORY: Dyspnea. Low O2 sats. Elevated LFTs. Post cholecystectomy. TECHNIQUE: Pulmonary embolus protocol - Thin-slice axial imaging of the chest was performed during maximal pulmonary arterial opacification with IV contrast. 3D slab MIPs and 2D reconstructions in the coronal and sagittal planes were performed to aid pulmonary embolus detection. [employer] Equipment Developer images have been stored on PACS. Axial CT images of the abdomen and pelvis were then obtained with IV contrast, with coronal and sagittal 2D reconstructed images. One of the following dose optimization techniques was utilized in the performance of this exam: Automated exposure control; adjustment of the mA and/ or kV according to the patient's size; or use of an iterative reconstruction technique. Specific details can be referenced in the facility's radiology CT exam operational policy. Contrast: 75 mL of IV Isovue-370. COMPARISON: CT abdomen/pelvis 09/06/2017. FINDINGS: Chest: Pulmonary arteries: The pulmonary arteries are well opacified, without suspicious filling defect. Heart, aorta, and great vessels: Normal caliber thoracic aorta. Vascular calcifications, including coronary artery calcifications. Borderline cardiac enlargement. No pericardial effusion. Lungs and pleura: Small to moderate layering right pleural effusion. There is consolidation and volume loss in the posterior inferior right lower lobe which may all be due to atelectasis, although superimposed infiltrate is not excluded. Trace amount of layering left-sided pleural fluid, with mild left basilar atelectasis. Small focus of patchy airspace disease in the right upper lobe laterally. There is mild interlobular septal thickening in the mid and upper lungs which may represent pulmonary edema. The central airways are patent. No pneumothorax. Mediastinum and joe: Negative. Chest wall: Negative. Bones: No acute osseous findings. Scattered degenerative changes along spine. Abdomen/pelvis: Liver: There is a moderate-sized crescentic collection of complex loculated fluid surrounding the right lobe of the liver, extending along the anterior and lateral margin of the right hepatic lobe and continuing superiorly along the dome of the liver. This crescentic fluid collection measures up to 2.8 cm in thickness. This collection demonstrates several bubbles of internal air with a thin rim of peripheral enhancement. Fluid is in continuity with the gallbladder fossa where there is an additional small pocket of complex fluid. CT appearance is suspicious for a bile leak with associated biloma. Superimposed infection is not excluded. No parenchymal liver mass. The hepatic veins and portal veins are patent. Gallbladder and bile ducts: The gallbladder is surgically absent. No bile duct dilatation. Spleen: Negative. Pancreas: Negative. Adrenal glands: Negative. Kidneys: Subcentimeter hypodensities in both kidneys likely represent small cysts. Bowel and peritoneum: The small bowel and colon are normal in caliber. No bowel obstruction. Small amount of free intraperitoneal air related to the recent surgery. There is no other free fluid present in the abdomen or pelvis. Pelvic structures: Negative. Lymph node assessment: Negative. Vessels: Moderate vascular calcifications. Normal caliber abdominal aorta. The IVC is patent. Musculoskeletal: Scattered degenerative changes along the spine. No acute osseous findings. Body wall: Surgical changes along the anterior abdominal wall related to the recent surgical procedure. No discrete fluid collection or hematoma along the abdominal wall. IMPRESSION: 1. No evidence of pulmonary embolism. 2. Small to moderate layering right pleural effusion, with a trace of left- sided pleural fluid.2. Bibasilar atelectasis, greater on the right. Superimposed infiltrate not excluded. Additional small focus of patchy airspace disease in the right upper lobe laterally may be infectious or inflammatory. Likely mild interstitial edema. 4. New surgical changes in the abdomen compatible with the recent cholecystectomy. 5. Complex loculated crescentic fluid collection surrounding the anterior, superior, and lateral aspect of the right hepatic lobe, in continuity with the gallbladder fossa, suspicious for a bile leak and associated biloma. This crescentic collection measures up to 2.8 cm in thickness and approximately 15 cm in length, encasing the right hepatic lobe. 6. Small amount of scattered free intraperitoneal air, within normal limits for the postsurgical timeframe. No additional free fluid in the abdomen or pelvis. Findings were discussed with NEVILLE SHI at 09/08/2017 7:04 PM. Report Dictated By: Sánchez Manzo MD at 09/08/2017 6:42 PM Report E-Signed By: Sánchez Manzo MD at 09/08/2017 7:04 PM [id number] Assessment and Plan Problems: (1) Acute postoperative respiratory insufficiency Status: Acute Assessment & Plan: Most likely exacerbated by the right-sided pleural effusion and the upper abdominal surgery. She will be admitted to the ICU and remain on the ventilator at least overnight. Will follow ABGs to evaluate ventilation status. She will need some sedation while on the ventilator as well. Hopefully, tomorrow we can release the sedation to see how she does with a quick CPAP trial and extubate shortly after. Venous Thromboembolism Antithrombotics Is Pt On Any Antithrombotics?: No Exam Sepsis Risk: No Definite Risk FLORENTIN WOODALL MD Sep 08, 2017 22:21
[2017-09-09] VITALS (116 sets, daily range): BP systolic 72–146; BP diastolic 48–95; Ht 162.6 cm; Wt 49.0 kg
[2017-09-09] MEDS: MORPHINE 2 MG/ML SYR IVP PRN (00:05)
[2017-09-09] MEDS: PIPERACILLIN/TAZO*3.375GM VIAL 3.375 GM in NS(*) 0.9% 100 ML ADDVANT BAG 100 ML IVPB SCH ×5 (00:15→23:47)
[2017-09-09] MEDS ORDERED: DIGOXIN 0.5 MG/2 ML AMP IVP ONE ×2 (05:30→14:20)
--- NOTE | 2017-09-09 05:46 | Miscellaneous Provider Note ---
Miscellaneous Provider Note Note Patient went into atrial fibrillation with rapid ventricular response at approximately 0430hrs this AM. Her BPs have been on low side while on the propofol for sedation. Will try digoxin 0.5mg IV one time to see if can get better rate control. FLORENTIN WOODALL MD Sep 09, 2017 05:46
--- NOTE | 2017-09-09 05:57 | EKG ---
FACILITY: [facility] [place] PATIENT NAME: SAE FREY : [id number] MR: [id number] V: [id number] EXAM DATE: ORDERING PHYSICIAN: FLORENTIN WOODALL TECHNOLOGIST: HIMANSHU Test Reason : AFIB Blood Pressure : / mmHG Vent. Rate : 142 BPM Atrial Rate : 120 BPM P-R Int : 000 ms QRS Dur : 078 ms QT Int : 328 ms P-R-T Axes : 000 056 031 degrees QTc Int : 504 ms Atrial fibrillation with rapid ventricular response Decreased R wave progression anteriorly No acute appearing ST-T findings Abnormal ECG Confirmed by FLORENTIN WOODALL ([id number]) on 09/09/2017 6:46:41 AM Referred By: Confirmed By:FLORENTIN WOODALL
--- NOTE | 2017-09-09 06:06 | RADIOLOGY IMAGING REPORT ---
[place] [facility] [place]IENT NAME: Meenakshi De La Garza : 1940 MR: [id number] V: [id number] EXAM DATE: ORDERING PHYSICIAN: SNOW ALVARADO TECHNOLOGIST: Location: [facility] - [place] Patient: Meenakshi De La Garza : 1940 Visit/Account:[id number] Date of Sevice: 09/09/2017 CHEST SINGLE AP COMPARISONS: Single view chest dated September 08, 2017 ADDITIONAL PERTINENT HISTORY: Intubated FINDINGS: Life-support: Endotracheal tube with its tip 3 cm above the pari. Cardiomediastinal silhouette: Negative. 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 Lung new: Interval increase in patchy opacity at the right lung base which could represent atelec tatic change versus infiltrate. Pleural spaces: Small to moderate-sized right-sided pleural effusion. Osseous structures: Negative. Surrounding soft tissues: Negative. IMPRESSION: 1. Increasing regions of atelectatic change versus infiltrate at the right lung base. 2. Moderate-sized right-sided pleural effusion slightly increased from previous exam. 3. Interval placement of an endotracheal tube with its tip approximately 3 cm above the pari. Report Dictated By: Teddy Nye MD at 09/09/2017 6:00 AM Report E-Signed By: Teddy Nye MD at 09/09/2017 6:02 AM [id number]
[2017-09-09 06:31] LABS: PLATELET COUNT, AUTOMATED 174 K/uL (150-450)
[2017-09-09] MEDS ORDERED: DILTIAZEM 5 MG/ML 5ML IVPUSH IVP ONE ×2 (07:45→14:20)
--- NOTE | 2017-09-09 07:49 | General Surgery Progress Note ---
Subjective Progress Notes Subjective Flipped into a-fib with RVR overnight. Awake this morning. Her main complaint based on her answering questions with head shakes is the endotracheal tube being in place. Physical Exam Vital Signs Date Time Temp Pulse Resp B/P (MAP) Pulse Ox O2 Delivery O2 Flow Rate FiO2 09/09/17 07:08 9 09/09/17 07:07 96 Mechanical Ventilator 50.0 09/09/17 07:07 146 09/09/17 06:30 74/55 (61) 09/09/17 06:15 97.9 09/08/17 18:29 10.0 General Appearance: Alert, Awake, No Acute Distress, Afebrile GI: Other (Soft, appropriate TTP, dressings C/D/I, TRAY with serosanguinous output.) Extremities: Warm, Perfused Result Diagram: 09/09/17 0500 09/09/17 0443 Assessment and Plan Problems: (1) Biloma following surgery Status: Acute Assessment & Plan: Will admit, nothing by mouth, IV fluids, 2 OR for laparoscopy with evacuation of the perihepatic fluid, we'll look for any evidence of bleeding or bile leak, try to control it if possible, and place a drain. I have explained this plan including the procedure to the patient and her and they seem to be agreeable with proceeding with this plan. 09/09/17: POD#1 s/p exploratory laparoscopy with washout, clipping of leaking duct of Luschka in gallbladder fossa, and drain placement. Remained intubated overnight since she was having respiratory issues preop. O/W has remained stable. Hospitalists working on controlling her RVR, may consider electrocardioversion and so will leave intubated until either she responds to diltiazem or until after electrocardioversion and she recovers from sedation. Hopeful for extubation later this morning. Continue ICU care today. (2) Atrial fibrillation with RVR Status: Acute Assessment & Plan: Managed by Hospitalist. Working on rate control, may try electrocardioversion. (3) S/P laparoscopic cholecystectomy Status: Acute Condition Stable. Time Spent: < 30 min Exam Sepsis Risk: No Definite Risk Problem Qualifiers (1) Biloma following surgery: Encounter type: initial encounter Qualified Codes: T81.89XA - Other complications of procedures, not elsewhere classified, initial encounter; K66.8 - Other specified disorders of peritoneum CHRISTIANO,KOBE MD Sep 09, 2017 07:49
[2017-09-09] MEDS: NS(*) 0.9% 1000 ML BAG 1,000 ML IV PRN ×3 (07:53→10:14)
[2017-09-09] MEDS ORDERED: DILTIAZEM HCL* 100 MG ADDVIAL 100 MG in NS(*) 0.9% 100 ML ADDVANT BAG 100 ML IV SCH ×2 (08:00→12:25)
[2017-09-09] MEDS: PROPOFOL(*)1000 MG/100 ML VIAL 100 ML IV PRN (08:53)
[2017-09-09] MEDS ORDERED: CHLORHEXIDINE 0.12% 18 MG/15ML MM SCH (09:00)
--- NOTE | 2017-09-09 09:20 | Procedure Note ---
Cardioversion Procedure Note Consent Signed: Yes Initial Heart Rhythm: A-Fib, With RVR Onset Date: Sep 09, 2017 Prior Anticoagulation: Other (duration of atrial fibrillation <12hrs) Duration of Anitcoag in Days: 0 Procedure: Cardioversion Patch Placement: Anterior/Lateral Heart Rhythm Following First A: Atrial Fibrillation Heart Rhythm Following Second: Atrial Fibrillation Heart Rhythm Following Third A: Atrial Fibrillation (Patient did not return to sinus rhythm after cardioversion at 50, 100, 200, 300 Joules.) Patient Tolerated Procedure: Well Comment Sedation was achieved with IV propofol. Cardioversion was unsuccessful at all energy levels. FLORENTIN WOODALL MD Sep 09, 2017 09:20
[2017-09-09] MEDS: PANTOPRAZOLE SOD 40 MG IV VIAL IVP SCH (09:44)
--- NOTE | 2017-09-09 11:18 | Hospitalist Progress Note ---
Subjective Progress Notes Subjective She went into atrial fibrillation with RVR at about 0400. She did not convert with electrical cardioversion attempts. Physical Exam Vital Signs Date Time Temp Pulse Resp B/P (MAP) Pulse Ox O2 Delivery O2 Flow Rate FiO2 09/09/17 10:17 50.0 09/09/17 07:20 94 Mechanical Ventilator 09/09/17 07:08 9 09/09/17 07:07 146 09/09/17 06:30 74/55 (61) 09/09/17 06:15 97.9 09/08/17 18:29 10.0 General Appearance: No Acute Distress, Other Neuro: Other (sedated and intubated) Cardiovascular: Other (tachy, no m/r/g) Respiratory: Clear to Auscultation Extremities: No Edema Result Diagram: 09/09/17 0500 09/09/17 0443 Assessment and Plan Problems: (1) Acute postoperative respiratory insufficiency Status: Acute Assessment & Plan: Most likely exacerbated by the right-sided pleural effusion and the upper abdominal surgery. The pleural effusion is worse on the CXR today. She is on an FiO2 of 50% and ventilating well. RSBI is about 31. She had a NIF of -20 and -12. Likely, will extubate this afternoon. (2) Atrial fibrillation with RVR Status: Acute Assessment & Plan: This is a new diagnosis. She did not convert with electrical cardioversion. She is currently on a diltiazem drip at 5mg/hr. Will increase to 7.5mg/hr. She is getting an echo. Will get a TSH. Troponin is in the borderline region. Will recheck tomorrow. Exam Sepsis Risk: No Definite Risk ETIENNE SINGH MD Sep 09, 2017 11:18
[2017-09-09] MEDS ORDERED: METOPROLOL TART 5 MG/5 ML VIAL IVP ONE (15:00)
[2017-09-09] MEDS: DILTIAZEM IV SCH (18:00)
[2017-09-09] MEDS: IVP IV SCH (18:00)
[2017-09-09] MEDS: NS 0.9% IV SCH (18:00)
[2017-09-09] MEDS ORDERED: FUROSEMIDE 20 MG/2 ML VIAL IVP ONE (19:40)
[2017-09-10] VITALS (60 sets, daily range): BP systolic 120–173; BP diastolic 59–116
[2017-09-10] MEDS: NS(*) 0.9% 1000 ML BAG 1,000 ML IV PRN (01:53)
[2017-09-10] MEDS: IVP IV SCH (03:56)
[2017-09-10] MEDS: NS 0.9% IV SCH (03:56)
[2017-09-10] MEDS: DILTIAZEM IV SCH (03:56)
[2017-09-10] MEDS ORDERED: NS 0.9% IV SCH ×2 (04:00→19:00)
[2017-09-10] MEDS ORDERED: DILTIAZEM IV SCH ×2 (04:00→19:00)
[2017-09-10] MEDS ORDERED: IVP IV SCH ×2 (04:00→19:00)
[2017-09-10 05:26] LABS: PLATELET COUNT, AUTOMATED 212 K/uL (150-450)
[2017-09-10] MEDS: PIPERACILLIN/TAZO*3.375GM VIAL 3.375 GM in NS(*) 0.9% 100 ML ADDVANT BAG 100 ML IVPB SCH ×2 (06:01→11:40)
[2017-09-10] MEDS ORDERED: MAGNESIUM SUL* 2 GM/50 ML IVPB 50 ML IVPB ONE (06:25)
--- NOTE | 2017-09-10 06:40 | General Surgery Progress Note ---
Subjective Progress Notes Subjective No complaints. No pain currently. No flatus. Physical Exam Vital Signs Date Time Temp Pulse Resp B/P (MAP) Pulse Ox O2 Delivery O2 Flow Rate FiO2 09/10/17 06:30 84 20 157/72 (100) 89 09/10/17 06:00 Oxy Mask 10.0 09/10/17 03:30 97.9 09/09/17 15:00 45.0 General Appearance: Alert, Awake, No Acute Distress, Afebrile GI: Other (Soft, appropriate postop TTP, dressing C/D/I. TRAY without bile, small amount of serosanguinous output.) Extremities: Warm, Perfused Result Diagram: 09/10/17 0500 09/10/17 0500 Assessment and Plan Problems: (1) Biloma following surgery Status: Acute Assessment & Plan: Will admit, nothing by mouth, IV fluids, 2 OR for laparoscopy with evacuation of the perihepatic fluid, we'll look for any evidence of bleeding or bile leak, try to control it if possible, and place a drain. I have explained this plan including the procedure to the patient and her and they seem to be agreeable with proceeding with this plan. 09/09/17: POD#1 s/p exploratory laparoscopy with washout, clipping of leaking duct of Luschka in gallbladder fossa, and drain placement, POD#3 s/p lap onesimo. Remained intubated overnight since she was having respiratory issues preop. O/W has remained stable. Hospitalists working on controlling her RVR, may consider electrocardioversion and so will leave intubated until either she responds to diltiazem or until after electrocardioversion and she recovers from sedation. Hopeful for extubation later this morning. Continue ICU care today. 09/10/17: POD#2, POD#4. Doing better this morning. Back in NSR with good rate control. Vital signs look good. No evidence of continued bile leakage. Requiring 10L O2 by oxymask. Will check CXR, continue diuresis as she tolerates , aggressive pulmonary hygiene, will start ambulating her today, PT/OT. PPI for GI prophylaxis, lovenox for VTE prophylaxis. Continue bowel rest until she shows signs that her ileus is resolving. May need to place PICC line and start TPN if not able to eat over the next 2 days. Continue ICU care today. (2) Atrial fibrillation with RVR Status: Acute Assessment & Plan: Back in NSR for the moment. (3) S/P laparoscopic cholecystectomy Status: Acute Condition Stable. Time Spent: < 30 min Exam Sepsis Risk: No Definite Risk Problem Qualifiers (1) Biloma following surgery: Encounter type: initial encounter Qualified Codes: T81.89XA - Other complications of procedures, not elsewhere classified, initial encounter; K66.8 - Other specified disorders of peritoneum SNOW ALVARADO MD Sep 10, 2017 06:40
--- NOTE | 2017-09-10 07:10 | RADIOLOGY IMAGING REPORT ---
FACILITY: [facility] - [place] PATIENT NAME: Meenakshi De La Garza : 1940 MR: [id number] V: [id number] EXAM DATE: ORDERING PHYSICIAN: SNOW ALVARADO TECHNOLOGIST: Location: [facility] [place] Patient: Meenakshi De La Garza : 1940 Visit/Account:[id number] Date of Sevice: 09/10/2017 CHEST SINGLE AP COMPARISONS: Single view chest dated September 09, 2017 ADDITIONAL PERTINENT HISTORY: Hypoxia FINDINGS: Cardiomediastinal silhouette: Mild cardiomegaly. Pulmonary vasculature: Atherosclerotic disease of the thoracic arch. Lung new: Patchy areas of opacity involving the right lung base. Pleural spaces: Small to moderate sized right-sided pleural effusion. Osseous structures: Negative. Surrounding soft tissues: Negative. IMPRESSION: 1. Interval removal of an endotracheal tube. 2. Persistent regions of atelectatic change versus infiltrate involving the right lung base with an a ssociated right-sided pleural effusion. Report Dictated By: Teddy Nye MD at 09/10/2017 7:04 AM Report E-Signed By: Teddy Nye MD at 09/10/2017 7:06 AM WSN:[id number]
[2017-09-10] MEDS: KCL/D1/2NS 20 MEQ 1000 ML 1,000 ML IV SCH ×2 (07:20→23:50)
[2017-09-10] MEDS: ENOXAPARIN 40 MG/0.4ML SYR SC SCH (08:29)
[2017-09-10] MEDS: PANTOPRAZOLE SOD 40 MG IV VIAL IVP SCH (08:29)
[2017-09-10] MEDS: KCL (*) 20 MEQ/100 ML PREMIX 100 ML IV SCH ×4 (08:29→14:40)
--- NOTE | 2017-09-10 11:12 | Hospitalist Progress Note ---
Subjective Progress Notes Subjective This patient was admitted to the ICU after a surgery to address a bile leak. She was extubated yesterday, but remains on high oxygen requirements. Patient Complains of: Cardiovascular: No: Chest Pain Respiratory: No: Shortness of Breath Physical Exam Vital Signs Date Time Temp Pulse Resp B/P (MAP) Pulse Ox O2 Delivery O2 Flow Rate FiO2 09/10/17 10:33 79 09/10/17 10:30 99.0 15 156/77 (103) 93 Oxy Mask 10.0 09/09/17 15:00 45.0 Intake and Output 09/11/17 07:00 Intake Total 277 ml Output Total 300 ml Balance -23 ml Intake IV Total 277 ml Output Urine Total 300 ml Cardiovascular: Regular Rate and Rhythm Respiratory: Other (Large effusion on right.) Extremities: No Edema Integumentary: No Cyanosis Result Diagram: 09/10/17 0500 09/10/17 050 Imaging Chest x-ray reviewed. Item Value Date Time Thyroid Stimulating Hormone (TSH) 0.05 uIU/ml L 09/10/17 0500 Assessment and Plan Problems: (1) Acute postoperative respiratory insufficiency Status: Acute Assessment & Plan: She did return from surgery on mechanical ventilation. She was extubated yesterday. (2) Atrial fibrillation with RVR Status: Acute Assessment & Plan: She does not have a prior history of AFIB, but did develop this postoperatively. An attempt was made at electrical cardioversion, but this was unsuccessful. She was placed on diltiazem, but this has since been discontinued. She is now in sinus rhythm. An echocardiogram report is pending. Her troponin has been equivocal. (3) Pleural effusion Status: Acute Assessment & Plan: She does have a large effusion on the right, but only a small amount of fluid on the left. She has been treated with Lasix, but this doesn't seem to have much effect. She may require thoracentesis if this does not resolve. (4) Hypokalemia Assessment & Plan: She is scheduled to receive a potassium infusion today. Repeat chemistry panels are ordered for later today. (5) Low TSH level Assessment & Plan: She does not appear to have a history of hypothyroidism. Her TSH is low, but she is acutely ill. A T4 has been ordered, but she will likely need to have the TSH repeated in 4-6 weeks. Exam Sepsis Risk: No Definite Risk SNOW VERAS DO Sep 10, 2017 11:12
--- NOTE | 2017-09-10 12:05 | RADIOLOGY IMAGING REPORT ---
FACILITY: [facility] PATIENT NAME: SAE FREY : [id number] MR: [id number] V: [id number] EXAM DATE: ORDERING PHYSICIAN: FLORENTIN WOODALL TECHNOLOGIST: Abbie Murphy EXAMINATION:TWO-DIMENSIONAL ECHOCARDIOGRAPH REASON:ATRIAL FIBRILLATION. 2D Measurements (normal values in centimeters) LV endLV endRV endVent.LV PostAorticLeftPercent DiastolicSystolicDiastolicSeptumWallRootAtriumShortening (3.5-5.7)(0.9-2.6)(0.6-1.1)(0.6-1.1)(2.0-3.7)(1.9-4.0)(25-35%) [id number]% STROKE VOLUME: 17 mL ESTIMATED EJECTION FRACTION:64% PARASTERNAL LONG AXIS: The patient is in atrial fibrillation with rapid ventricular response. No thrombi were noted but the left atrial appendage is not seen. The left atrium is borderline enlarged. Aortic valve and mitral valve both appear to open normally. Color examination of the aortic valve reveals a trace to mild amount of mitral insufficiency. Color examination of the aortic valve was unremarkable. Aortic valve and mitral valve both appear to open normally. PARASTERNAL SHORT AXIS: Overall left ventricular function appears to be normal. Borderline concentric left ventricular thickening is noted but no evidence for any outflow tract obstruction. Aortic valve is trileaflet in configuration and appears to open normally. Color examination of the aortic valve was unremarkable. Color examination of the pulmonic valve reveals a trace amount of pulmonic insufficiency. Color examination of the tricuspid valve revealed some tricuspid insufficiency present. APICAL FOUR AND TWO CHAMBER: Left ventricular function appears to be normal. Color examination of the mitral valve reveals a trace amount of mitral insufficiency. Aortic valve area was measured within normal range at 1.9 cm2. Left atrial volume is mildly increased at 31 ml/m2. Right atrial volume is also mildly increased at 29 ml/m2. TAPSE measured at 2.0 which is normal indicating normal right ventricular function. Color examination of the tricuspid valve reveals a mild amount of tricuspid insufficiency. Tricuspid regurgitation V-max is measured at 3.63 m/sec. Estimated right atrial pressure is 8 mmHg. SUBCOSTAL VIEW: No pericardial effusion was noted. No atrial septal or ventricular septal defects were appreciated. OVERALL IMPRESSION: 1. Normal left ventricular ejection fraction of 64%. We were unable to accurately characterize the diastolic function and the patient is in atrial fibrillation with a rapid ventricular response. No thrombi were noted in any of the chambers but the left atrial appendage was not seen. No wall motion abnormalities were noted. The right ventricle appears to have normal systolic function. Borderline concentric left ventricular thickening but no evidence of any outflow tract obstruction. 2. A trileaflet aortic valve with no abnormalities. 3. A mild amount of mitral insufficiency. 4. A mild amount of tricuspid insufficiency with estimated right ventricular systolic pressure of 61 mmHg which does include an estimated right atrial pressure of 8 mmHg indicating severe pulmonary hypertension and increased right ventricular systolic pressures. 5. A trace of pulmonic insufficiency present. Dictated by: Almas Daigle M.D. on 09/09/2017 at 16:56 Transcribed by: ANA ROSA on 09/09/2017 at 19:51 Approved by: Almas Daigle M.D. on 09/10/2017 at 12:04 [facility]
--- NOTE | 2017-09-10 14:05 | Medical Nutrition Therapy ---
Nutrition Anthropometrics Height (Inches): 64.00 Height (Calculated Centimeters: 162.233992 Weight (Pounds): 120 Weight (Calculated Kilograms): 54.431 BMI Calculated: 20.60 Shaji Nutrition Score: Adequate Shaji Nutrition Risk Score: 18 Dietary Referral Nutrition Risk Factors: Mech. Ventilated Nutrition Risk Comment: Physical Findings Physical Appearance: Normal BMI Skin Appearance Skin Appearance: Edema Edema Location Modifier: Edema Location: Type of Edema: Degree of Edema: Gastrointestinal Symptoms GI Symtoms: Tube Present: Bowel Sounds: Recent Bowel Pattern: Stool Characteristics: Nutritional Diagnosis Nutritional Risk Acuity 1: Pulm Fail Vent Nutritional Risk Acuity 4: %IBW 90-100% Past Medical History: HTN, hypercholesterolemia, esophageal reflux, osteoporosis, cholecystectomy Nutritional Acuity: 1-High Nutrition Diagnosis: Inadequate Food Intake Nutrition Etiology: Prolonged Hospitalization Nutrition Problem/Etiology/Sym: Inadequate calorie intake r/t prolonged hospitalization AEB NPO status and lack of nutrition support Energy Requirement: 1300 ([place] [address] Jeor) Protein Requirement: 60 (1.1 g/kg) Fluid Requirement: 1620 (30 ml/kg) Diet Type: NPO (Nothing by Mouth) Nutrition Intervention: Incr diet as tolerated Nutrition Monitoring & Eval Nutrition Goals: Eat 75-100% Meal RD Patient Assessment Time: [address] Assessment Type: RD Assessment Patient Nutrition Acuity: 1-High Follow Up Date: Sep 11, 2017 Nutritional Comment: 09/09/17 Pt admitted for post op bile leak and resp insufficiency after cholecystectomy. Pt NPO due to intubation w/ propofol. Possibly extubating tomorrow per hospitalist note. Notable labs include Na 134, total pro 5.6, and alb 2.7. Will follow up as diet progresses. 09/10/17 Pt extubated but remains NPO. Continue bowel rest until showing signs of ileus resolving, per MD. May need TPN if not able to eat over next 2 days, per MD as well. I recommend PPN/TPN by tomorrow as pt has been NPO 3 days and admitted with poor appetite. Notable labs include low H/H, total pro 4.8, and alb 2.3. Will continue to follow up. PRASANTH MCKEON Sep 10, 2017 08:25
[2017-09-10] MEDS: TAZO IVPB SCH ×2 (17:23→23:51)
[2017-09-10] MEDS: NS 0.9% IVPB SCH ×2 (17:23→23:51)
[2017-09-10] MEDS: PIPERACILLIN IVPB SCH ×2 (17:23→23:51)
[2017-09-10] MEDS ORDERED: LORazepam 2 MG/ML VIAL IVP ONE (19:35)
[2017-09-10] MEDS ORDERED: DIGOXIN 0.5 MG/2 ML AMP IVP ONE (20:30)
[2017-09-10] MEDS ORDERED: DIGOXIN 0.5 MG/2 ML AMP ONE (20:41)
[2017-09-11] VITALS (47 sets, daily range): BP systolic 117–161; BP diastolic 63–104
[2017-09-11] MEDS ORDERED: DILTIAZEM HCL 100 MG ONE (00:05)
[2017-09-11] MEDS ORDERED: NS(*) 0.9% 100 ML ADDVANT BAG 100 ML ONE (00:06)
[2017-09-11] MEDS: MORPHINE 2 MG/ML SYR IVP PRN ×4 (02:12→23:24)
[2017-09-11] MEDS: TAZO IVPB SCH ×4 (05:42→23:24)
[2017-09-11] MEDS: NS 0.9% IVPB SCH ×4 (05:42→23:24)
[2017-09-11] MEDS: PIPERACILLIN IVPB SCH ×4 (05:42→23:24)
[2017-09-11 06:05] LABS: PLATELET COUNT, AUTOMATED 247 K/uL (150-450)
--- NOTE | 2017-09-11 06:41 | RADIOLOGY IMAGING REPORT ---
FACILITY: [facility] PATIENT NAME: Meenakshi De La Garza : 1940 MR: [id number] V: [id number] EXAM DATE: ORDERING PHYSICIAN: SNOW VERAS TECHNOLOGIST: Location: [facility] [place] Patient: Meenakshi De La Garza : 1940 Visit/Account:[id number] Date of Sevice: 09/11/2017 CHEST SINGLE AP COMPARISONS: Single view chest dated September 10, 2017 ADDITIONAL PERTINENT HISTORY: Increased hypoxia FINDINGS: Cardiomediastinal silhouette: Negative. 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 Lung new: Continued patchy infiltrate involving the right upper lobe. Patchy new regions of infil trate involving the left upper lobe and left perihilar region. Persistent opacity at the right lung b ase. Pleural spaces: Findings of a now moderate sized right-sided pleural effusion. New small left-sided p leural effusion. Osseous structures: Negative Surrounding soft tissues: Surgical drain projecting over the right upper quadrant. IMPRESSION: 1. Interval development of regions of infiltrate involving the left upper lobe and left perihilar reg ion. 2. Increasing bilateral pleural effusions right greater than left. 3. Persistent infiltrate involving the right upper lobe. Report Dictated By: Teddy Nye MD at 09/11/2017 6:36 AM Report E-Signed By: Teddy Nye MD at 09/11/2017 6:38 AM WSN:[id number]
--- NOTE | 2017-09-11 06:47 | General Surgery Progress Note ---
Subjective Progress Notes Subjective No complaints. No pain. Feeling thirsty. Was hungry last night. No flatus yet but she "feels activity" in her intestines. Physical Exam Vital Signs Date Time Temp Pulse Resp B/P (MAP) Pulse Ox O2 Delivery O2 Flow Rate FiO2 09/11/17 06:00 100 18 140/76 (97) 91 Oxy Mask 12.0 09/11/17 02:30 97.5 09/09/17 15:00 45.0 General Appearance: Alert, Awake, No Acute Distress, Afebrile GI: Other (Soft, appropriate postop TTP, TRAY without bile, small amount of serosanguinous drainage. Incisions look good.) Extremities: Warm, Perfused Result Diagram: 09/10/17 0500 09/11/17 0549 Assessment and Plan Problems: (1) Biloma following surgery Status: Acute Assessment & Plan: Will admit, nothing by mouth, IV fluids, 2 OR for laparoscopy with evacuation of the perihepatic fluid, we'll look for any evidence of bleeding or bile leak, try to control it if possible, and place a drain. I have explained this plan including the procedure to the patient and her and they seem to be agreeable with proceeding with this plan. 09/09/17: POD#1 s/p exploratory laparoscopy with washout, clipping of leaking duct of Luschka in gallbladder fossa, and drain placement, POD#3 s/p lap onesimo. Remained intubated overnight since she was having respiratory issues preop. O/W has remained stable. Hospitalists working on controlling her RVR, may consider electrocardioversion and so will leave intubated until either she responds to diltiazem or until after electrocardioversion and she recovers from sedation. Hopeful for extubation later this morning. Continue ICU care today. 09/10/17: POD#2, POD#4. Doing better this morning. Back in NSR with good rate control. Vital signs look good. No evidence of continued bile leakage. Requiring 10L O2 by oxymask. Will check CXR, continue diuresis as she tolerates , aggressive pulmonary hygiene, will start ambulating her today, PT/OT. PPI for GI prophylaxis, lovenox for VTE prophylaxis. Continue bowel rest until she shows signs that her ileus is resolving. May need to place PICC line and start TPN if not able to eat over the next 2 days. Continue ICU care today. 09/11/: POD#3, POD#5. Doing well, GI function improving, will try clear diet today. Will place PICC today to give meds and draw blood for labs since she is proving difficult to draw blood from. Back in a-fib with RVR but now trying to convert back to sinus this morning, rate down to less than 100 at time of my visit. Potassium low, will replace and recheck. When better, will diurese more today. Continue PPI for GI prophylaxis, lovenox for VTE prophylaxis, PT/OT, aggressive pulmonary hygiene. (2) Atrial fibrillation with RVR Status: Acute Assessment & Plan: Back in a-fib but rate controlled and showing signs of trying to convert back to NSR. (3) S/P laparoscopic cholecystectomy Status: Acute Condition Stable. Time Spent: < 30 min Exam Sepsis Risk: Sepsis Risk Problem Qualifiers (1) Biloma following surgery: Encounter type: initial encounter Qualified Codes: T81.89XA - Other complications of procedures, not elsewhere classified, initial encounter; K66.8 - Other specified disorders of peritoneum SNOW ALVARADO MD Sep 11, 2017 06:47
[2017-09-11] MEDS ORDERED: IVP IV SCH (07:30)
[2017-09-11] MEDS ORDERED: NS 0.9% IV SCH (07:30)
[2017-09-11] MEDS ORDERED: DILTIAZEM IV SCH (07:30)
[2017-09-11] MEDS ORDERED: DIGOXIN 0.5 MG/2 ML AMP IVP ONE (07:35)
[2017-09-11] MEDS ORDERED: LIDOCAINE MPF 1% 5 ML VIAL ONE (07:52)
[2017-09-11] MEDS: PANTOPRAZOLE SOD 40 MG IV VIAL IVP SCH (08:09)
[2017-09-11] MEDS: KCL (*) 20 MEQ/100 ML PREMIX 100 ML IV SCH ×2 (08:10→09:54)
--- NOTE | 2017-09-11 09:14 | Medical Nutrition Therapy ---
Nutrition Anthropometrics Height (Inches): 64.00 Height (Calculated Centimeters: 162.215311 Weight (Pounds): 116 Weight (Calculated Kilograms): 52.844 BMI Calculated: 20.60 Shaji Nutrition Score: Probably Inadequate Shaji Nutrition Risk Score: 18 Dietary Referral Nutrition Risk Factors: Mech. Ventilated Nutrition Risk Comment: Physical Findings Physical Appearance: Normal BMI Skin Appearance Skin Appearance: Edema Edema Location Modifier: Both Edema Location: Arm Type of Edema: Degree of Edema: Gastrointestinal Symptoms GI Symtoms: Tube Present: Bowel Sounds: Recent Bowel Pattern: Stool Characteristics: Nutritional Diagnosis Nutritional Risk Acuity 4: %IBW 90-100% Past Medical History: HTN, hypercholesterolemia, esophageal reflux, osteoporosis, cholecystectomy Nutritional Acuity: 2-Moderate (biloma post surgery) Nutrition Diagnosis: Inadequate Food Intake Nutrition Etiology: Prolonged Hospitalization Nutrition Problem/Etiology/Sym: Inadequate calorie intake r/t prolonged hospitalization AEB NPO status and lack of nutrition support Energy Requirement: [address] ([place] [address] Jeor) Protein Requirement: 60 (1.1 g/kg) Fluid Requirement: 1620 (30 ml/kg) Diet Type: Clear Liquids Nutrition Intervention: Incr diet as tolerated Additional Diet Restrictions: PUT PROTEIN POWDER IN APPRORIATE FOODS Diet Comment To [facility]: OFFER ENSURE CLEAR NUTR SUPPLMENT WHILE ON CLEAR DIET- OTHER SUPPLEMENT WHEN DIET ADVANCED Nutrition Monitoring & Eval Nutrition Goals: Eat 75-100% Meal RD Patient Assessment Time: [address] Assessment Type: RD Re-Assessment Patient Nutrition Acuity: 2-Moderate Follow Up Date: Sep 13, 2017 Nutritional Comment: 09/09/17 Pt admitted for post op bile leak and resp insufficiency after cholecystectomy. Pt NPO due to intubation w/ propofol. Possibly extubating tomorrow per hospitalist note. Notable labs include Na 134, total pro 5.6, and alb 2.7. Will follow up as diet progresses. 09/10/17 Pt extubated but remains NPO. Continue bowel rest until showing signs of ileus resolving, per MD. May need TPN if not able to eat over next 2 days, per MD as well. I recommend PPN/TPN by tomorrow as pt has been NPO 3 days and admitted with poor appetite. Notable labs include low H/H, total pro 4.8, and alb 2.3. Will continue to follow up. 09/11 Diet advanced to clear liquid. alb 2.6. Will offer nutr supplment and put protein powder in appropriate foods. Will cont to monitor. JOSEPH CHAUDHARI Sep 11, 2017 08:56
[2017-09-11] MEDS: ENOXAPARIN 40 MG/0.4ML SYR SC SCH (09:54)
[2017-09-11] MEDS ORDERED: FUROSEMIDE 40 MG/4 ML VIAL IVP ONE (12:10)
[2017-09-11] MEDS ORDERED: PROMETHAZINE 25 MG/ML 1 ML AMP IVP PRN (12:45)
--- NOTE | 2017-09-11 12:51 | Hospitalist Progress Note ---
Subjective Progress Notes Subjective The patient denies abdominal pain. She is still a bit short of breath. Physical Exam Vital Signs Date Time Temp Pulse Resp B/P (MAP) Pulse Ox O2 Delivery O2 Flow Rate FiO2 09/11/17 11:00 100.3 75 34 149/77 (101) 89 Oxy Mask 12.0 09/09/17 15:00 45.0 Intake and Output 09/12/17 07:00 Intake Total 139 ml Output Total 470 ml Balance -331 ml IV Total 139 ml Output Urine Total 470 ml General Appearance: Alert, Awake, Other (Mild increased work of breathing noted.) Neuro: No Gross deficits Eyes: PERRLA Cardiovascular: Other (Irregularly irregular.) Respiratory: Other (Diffuse crackles throughout.) GI: Soft and Non-Tender Extremities: Warm, Perfused, Other (No edema.) Integumentary: Other (Surgical wound bandaged,) Psych: Appropriate Mood & Affect Result Diagram: 09/11/17 0549 09/11/17 1105 Item Value Date Time B-Type Natriuretic Peptide 866 pg/ml H 09/11/17 1105 Total Bilirubin 1.5 mg/dl H 09/11/17 0549 Direct Bilirubin 0.8 mg/dl H 09/11/17 0549 Aspartate Amino Transf (AST/SGOT) 33 U/L 09/11/17 0549 Alanine Aminotransferase (ALT/SGPT) 170 U/L H 09/11/17 0549 Alkaline Phosphatase 161 U/L H 09/11/17 0549 Total Protein 5.5 gm/dl L 09/11/17 0549 Albumin 2.6 g/dl L 09/11/17 0549 Free Thyroxine 1.27 ng/dl 09/10/17 1733 Digoxin Level 0.7 ng/ml 09/10/17 0500 Assessment and Plan Problems: (1) Acute postoperative respiratory insufficiency Status: Acute Assessment & Plan: She did return from surgery on mechanical ventilation. She was extubated successfully on 09/09. (2) Pneumonia Status: Acute Assessment & Plan: CXR this am shows new left sided infiltrates. She is currently febrile and WBC has increased. Will add Levaquin 750mg daily. Will stop Zofran (has not received a dose yet) and use Phenergan if needed for nausea. (3) Atrial fibrillation with RVR Status: Acute Assessment & Plan: She does not have a prior history of AFIB, but did develop this postoperatively. An attempt was made at electrical cardioversion, but this was unsuccessful. She converted to sinus rhythm for a period of time but then went back into atrial fibrillation. Rate control has been achieved with digoxin and Cardizem. (4) Pleural effusion Status: Acute Assessment & Plan: She does have an increase in pleural effusions on CXR today. She will receive Lasix 40mg today. She may require thoracentesis if this does not resolve. (5) Hypokalemia Assessment & Plan: She is scheduled to receive a potassium infusion today. Repeat chemistry panels are ordered for later today. (6) Low TSH level Assessment & Plan: She does not appear to have a history of hypothyroidism. Her TSH is low, but she is acutely ill. A T4 is within normal range. Recommend repeat TSH in 4-6 weeks. Time Spent on Plan of Care: < 30 min Exam Sepsis Risk: Sepsis Risk NIKKI WOODALL MD Sep 11, 2017 12:51
--- NOTE | 2017-09-11 12:53 | Miscellaneous Provider Note ---
Miscellaneous Provider Note Note BNP elevated. Echo shows preserved EF. She is going to receive a dose of Lasix this afternoon. She may have fluid overload. She also has new infiltrates on CXR. Levaquin added. Recheck CXR in am. Recheck BNP in am. Will repeat blood and urine cultures prior to giving Levaquin. NIKKI WOODALL MD Sep 11, 2017 12:53
--- NOTE | 2017-09-11 13:00 | EKG ---
FACILITY: [facility] [place] PATIENT NAME: SAE FREY : [id number] MR: [id number] V: [id number] EXAM DATE: ORDERING PHYSICIAN: NIKKI WOODALL TECHNOLOGIST: XIN Ledbetter Reason : QTC Blood Pressure : / mmHG Vent. Rate : 081 BPM Atrial Rate : 081 BPM P-R Int : 144 ms QRS Dur : 074 ms QT Int : 360 ms P-R-T Axes : 049 043 025 degrees QTc Int : 418 ms Sinus rhythm Probable left atrial enlargement Decreased R wave progression anteriorly Nonspecific ST findings Borderline ECG Confirmed by FLORENTIN WOODALL ([id number] on 09/11/2017 2:25:25 PM Referred By: NIKKI WOODALL Confirmed By:FLORENTIN WOODALL
[2017-09-11] MEDS ORDERED: ACETAMINOPHEN(*)1000 MG/100 ML 100 ML IVPB PRN (13:20)
[2017-09-11] MEDS: LEVOFLOXACIN/D5W 750 MG/150 ML 150 ML IVPB SCH (14:00)
--- NOTE | 2017-09-11 16:41 | RADIOLOGY IMAGING REPORT ---
FACILITY: [facility] [place] PATIENT NAME: Meenakshi De La Garza : 1940 MR: [id number] V: [id number] EXAM DATE: ORDERING PHYSICIAN: SNOW ALVARADO TECHNOLOGIST: Location: [facility] Patient: Meenakshi De La Garza : 1940 Visit/Account:[id number] Date of Sevice: 09/10/2017 Exam type: PICC LINE INSERTION, PICC LINE PLACEMENT History: TPN, meds Comparison: None. Findings: Informed consent was obtained. The patient's left arm was prepped and draped in usual sterile fashio n. Local anesthesia was accomplished 1% lidocaine. Utilizing both sonographic and fluoroscopic guid ance a 38 cm long trimmed 5 Divehi double lumen power PICC was inserted via the patent left basilic v ein with the distal tip resting in superior vena cava. Both lumens of power PICC were flushed with 5 mm of saline flush. Proximal portion PICC line was adhered the patient's arm the sterile dressing. The sonographic images were saved to PACS. The procedure was accomplished without apparent complica tion. The fluoroscopy dose area product was 377.59 micro-Bowden per meter squared. IMPRESSION: 1. Successful placement of a 38 cm long trimmed 5 Divehi double lumen power PICC inserted via the pa tent left basilic vein with the distal tip resting in superior vena cava Report Dictated By: Elif Fernandez MD at 09/11/2017 4:33 PM Report E-Signed By: Elif Fernandez MD at 09/11/2017 4:36 PM WSN:[email or web address]
--- NOTE | 2017-09-11 16:41 | RADIOLOGY IMAGING REPORT ---
FACILITY: [facility] [place] PATIENT NAME: Meenakshi De La Garza : 1940 MR: [id number] V: [id number] EXAM DATE: ORDERING PHYSICIAN: SNOW ALVARADO TECHNOLOGIST: Location: [facility] Patient: Meenakshi De La Garza : 1940 Visit/Account:[id number] Date of Sevice: 09/10/2017 Exam type: PICC LINE INSERTION, PICC LINE PLACEMENT History: TPN, meds Comparison: None. Findings: Informed consent was obtained. The patient's left arm was prepped and draped in usual sterile fashio n. Local anesthesia was accomplished 1% lidocaine. Utilizing both sonographic and fluoroscopic guid ance a 38 cm long trimmed 5 Croatian double lumen power PICC was inserted via the patent left basilic v ein with the distal tip resting in superior vena cava. Both lumens of power PICC were flushed with 5 mm of saline flush. Proximal portion PICC line was adhered the patient's arm the sterile dressing. The sonographic images were saved to PACS. The procedure was accomplished without apparent complica tion. The fluoroscopy dose area product was 377.59 micro-Bowden per meter squared. IMPRESSION: 1. Successful placement of a 38 cm long trimmed 5 Croatian double lumen power PICC inserted via the pa tent left basilic vein with the distal tip resting in superior vena cava Report Dictated By: Elif Fernandez MD at 09/11/2017 4:33 PM Report E-Signed By: Elif Fernandez MD at 09/11/2017 4:36 PM WSN:[email or web address]
[2017-09-11] MEDS: KCL/D1/2NS 20 MEQ 1000 ML 1,000 ML IV SCH (20:43)
--- NOTE | 2017-09-11 23:24 | EKG ---
FACILITY: [facility] [place] PATIENT NAME: SAE FREY : [id number] MR: [id number] V: [id number] EXAM DATE: ORDERING PHYSICIAN: NIKKI WOODALL TECHNOLOGIST: XIN Ledbetter Reason : QTC Blood Pressure : / mmHG Vent. Rate : 071 BPM Atrial Rate : 071 BPM P-R Int : 160 ms QRS Dur : 082 ms QT Int : 404 ms P-R-T Axes : 021 039 048 degrees QTc Int : 439 ms Normal sinus rhythm Normal ECG When compared with ECG of 11-SEP-2017 12:44, Previous ECG has undetermined rhythm, needs review Confirmed by NIKKI BOOGIE ([id number]) on 09/12/2017 6:19:05 AM Referred By: NIKKI WOODALL Confirmed By:NIKKI BOOGIE
[2017-09-12] VITALS (38 sets, daily range): BP systolic 96–168; BP diastolic 67–106
[2017-09-12 05:37] LABS: PLATELET COUNT, AUTOMATED 212 K/uL (150-450)
[2017-09-12] MEDS: PIPERACILLIN IVPB SCH ×4 (05:57→23:51)
[2017-09-12] MEDS: NS 0.9% IVPB SCH ×4 (05:57→23:51)
[2017-09-12] MEDS: TAZO IVPB SCH ×4 (05:57→23:51)
--- NOTE | 2017-09-12 07:08 | RADIOLOGY IMAGING REPORT ---
FACILITY: [facility] PATIENT NAME: Meenakshi De La Garza : 1940 MR: [id number] V: [id number] EXAM DATE: ORDERING PHYSICIAN: NIKKI WOODALL TECHNOLOGIST: Location: [facility] [place] Patient: Meenakshi De La Garza : 1940 Visit/Account:[id number] Date of Sevice: 09/12/2017 CHEST SINGLE AP COMPARISONS: Single view chest dated September 11, 2017 ADDITIONAL PERTINENT HISTORY: Pleural effusion FINDINGS: Life-support: Interval placement of a left-sided PICC line with its tip in the distal SVC. Cardiomediastinal silhouette: Mild cardiomegaly. This is stable since previous exam. 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 Lung new: Atelectatic change at the right lung base. Pleural spaces: Moderate sized right-sided pleural effusion. Small left-sided pleural effusion. Osseous structures: Negative. Surrounding soft tissues: Negative. IMPRESSION: 1. Stable appearance of the chest except for interval placement of a left-sided PICC line in good pos ition. Report Dictated By: Teddy Nye MD at 09/12/2017 6:59 AM Report E-Signed By: Teddy Nye MD at 09/12/2017 7:04 AM WSN:[id number]
--- NOTE | 2017-09-12 07:42 | General Surgery Progress Note ---
Subjective Progress Notes Subjective Only complaint is that she "feels weak." Passing flatus. No pain. Physical Exam Vital Signs Date Time Temp Pulse Resp B/P (MAP) Pulse Ox O2 Delivery O2 Flow Rate FiO2 09/12/17 05:48 71 09/12/17 04:25 98 High-Flow Nasal Cannula 4.0 09/12/17 03:30 139/81 (100) 09/12/17 03:00 99.8 19 09/09/17 15:00 45.0 General Appearance: Alert, Awake, No Acute Distress, Afebrile GI: Other (Soft, mild abdominal TTP, incisions all look good.) Extremities: Warm, Perfused Result Diagram: 09/12/1752309/12/17523 Assessment and Plan Problems: (1) Biloma following surgery Status: Acute Assessment & Plan: Will admit, nothing by mouth, IV fluids, 2 OR for laparoscopy with evacuation of the perihepatic fluid, we'll look for any evidence of bleeding or bile leak, try to control it if possible, and place a drain. I have explained this plan including the procedure to the patient and her and they seem to be agreeable with proceeding with this plan. 09/09/17: POD#1 s/p exploratory laparoscopy with washout, clipping of leaking duct of Luschka in gallbladder fossa, and drain placement, POD#3 s/p lap onesimo. Remained intubated overnight since she was having respiratory issues preop. O/W has remained stable. Hospitalists working on controlling her RVR, may consider electrocardioversion and so will leave intubated until either she responds to diltiazem or until after electrocardioversion and she recovers from sedation. Hopeful for extubation later this morning. Continue ICU care today. 09/10/17: POD#2, POD#4. Doing better this morning. Back in NSR with good rate control. Vital signs look good. No evidence of continued bile leakage. Requiring 10L O2 by oxymask. Will check CXR, continue diuresis as she tolerates , aggressive pulmonary hygiene, will start ambulating her today, PT/OT. PPI for GI prophylaxis, lovenox for VTE prophylaxis. Continue bowel rest until she shows signs that her ileus is resolving. May need to place PICC line and start TPN if not able to eat over the next 2 days. Continue ICU care today. 09/11/17: POD#3, POD#5. Doing well, GI function improving, will try clear diet today. Will place PICC today to give meds and draw blood for labs since she is proving difficult to draw blood from. Back in a-fib with RVR but now trying to convert back to sinus this morning, rate down to less than 100 at time of my visit. Potassium low, will replace and recheck. When better, will diurese more today. Continue PPI for GI prophylaxis, lovenox for VTE prophylaxis, PT/OT, aggressive pulmonary hygiene. 09/12/17: POD#4, POD#6. Doing well. GI function continues to improve. Will try regular diet today since she's passing flatus. Seems to be in NSR with good rate. BNP is down. Will continue to work on diuresis. Continue PPI for GI prophylaxis, lovenox for VTE prophylaxis, PT/OT, aggressive pulmonary hygiene. (2) Atrial fibrillation with RVR Status: Acute Assessment & Plan: Back in a-fib but rate controlled and showing signs of trying to convert back to NSR. (3) S/P laparoscopic cholecystectomy Status: Acute Condition Stable. Time Spent: < 30 min Exam Sepsis Risk: No Definite Risk Problem Qualifiers (1) Biloma following surgery: Encounter type: initial encounter Qualified Codes: T81.89XA - Other complications of procedures, not elsewhere classified, initial encounter; K66.8 - Other specified disorders of peritoneum SNOW ALVARADO MD Sep 12, 2017 07:42
--- NOTE | 2017-09-12 08:18 | Hospitalist Progress Note ---
Subjective Progress Notes Subjective She reports some dyspnea and mild abdominal discomfort. She reports no problems taking PO liquids yesterday. Physical Exam Vital Signs Date Time Temp Pulse Resp B/P (MAP) Pulse Ox O2 Delivery O2 Flow Rate FiO2 09/12/17 05:48 71 09/12/17 04:25 98 High-Flow Nasal Cannula 4.0 09/12/17 03:30 139/81 (100) 09/12/17 03:00 99.8 19 09/09/17 15:00 45.0 General Appearance: Alert, Awake Cardiovascular: Regular Rate and Rhythm Respiratory: Other (diminished effort with decreased breath sounds at bases) GI: Other (BS present) Extremities: Warm, Perfused, Edema (trace) Psych: Alert & Oriented X3 Result Diagram: 09/12/1752309/12/17523 Item Value Date Time Lipase 1172 U/L H 09/12/17 05 Albumin 2.2 g/dl L 09/12/17523 Total Protein 4.9 gm/dl L 09/12/17523 B-Type Natriuretic Peptide 212 pg/ml H 09/12/17 0524 Alkaline Phosphatase 152 U/L H 09/12/17 0524 Alanine Aminotransferase (ALT/SGPT) 115 U/L H 09/12/17 0524 Aspartate Amino Transf (AST/SGOT) 30 U/L 09/12/17 0524 Direct Bilirubin 0.6 mg/dl H 09/12/17 0524 Total Bilirubin 1.3 mg/dl 09/12/1724 Magnesium Level 1.5 mg/dl L 09/12/17523 Phosphorus Level 1.4 mg/dl L 09/12/17523 Assessment and Plan Problems: (1) Acute postoperative respiratory insufficiency Status: Acute Assessment & Plan: She did return from surgery on mechanical ventilation. She was extubated successfully on 09/09. She appears to have some mild pulmonary congestion. Will give a dose of Lasix 20mg IV today (after K+ replaced). (2) Pneumonia Status: Acute Assessment & Plan: CXR yesterday showed new left sided infiltrates. We added Levaquin 750mg daily to the Zosyn for coverage of a potential hospital acquired pneumonia. We did stop Zofran in favor of Phenergan if needed for nausea. (3) Atrial fibrillation with RVR Status: Acute Assessment & Plan: She does not have a prior history of A-fib, but did develop this postoperatively. An attempt was made at electrical cardioversion, but this was unsuccessful. She converted to sinus rhythm for a period of time but then went back into atrial fibrillation. Rate control was achieved with digoxin and Cardizem. She has since converted to sinus rhythm and has maintained it. She is off the digoxin and diltiazem at this point. (4) Pleural effusion Status: Acute Assessment & Plan: Most likely related to volume status and the bile leakage with a "sympathetic" effusion on the right. She will receive an additional dose of Lasix 20mg IV today. (5) Hypokalemia Assessment & Plan: She is scheduled to receive potassium IV today. Repeat chemistry panel is ordered for later today. (6) Low TSH level Assessment & Plan: She does not appear to have a history of hypothyroidism. Her TSH is low, but she is acutely ill. A T4 is within normal range. Recommend repeat TSH in 4-6 weeks. Exam Sepsis Risk: No Definite Risk FLORENTIN WOODALL MD Sep 12, 2017 08:18
[2017-09-12] MEDS ORDERED: MAGNESIUM SUL* 2 GM/50 ML IVPB 50 ML IVPB ONE (08:20)
[2017-09-12] MEDS: ENOXAPARIN 40 MG/0.4ML SYR SC SCH (08:39)
[2017-09-12] MEDS: PANTOPRAZOLE SOD 40 MG IV VIAL IVP SCH (08:39)
[2017-09-12] MEDS: KCL (*) 20 MEQ/100 ML PREMIX 100 ML IV SCH ×3 (08:39→11:00)
[2017-09-12] MEDS ORDERED: POTASSIUM PHOS IVPB ONE (12:00)
[2017-09-12] MEDS ORDERED: NS 0.9% IVPB ONE (12:00)
[2017-09-12] MEDS ORDERED: BENZOCAINE/MENTHOL 1 EACH LOZG PO PRN (13:45)
[2017-09-12] MEDS: LEVOFLOXACIN/D5W 750 MG/150 ML 150 ML IVPB SCH (13:50)
[2017-09-12] MEDS ORDERED: FUROSEMIDE 20 MG/2 ML VIAL IVP ONE (15:00)
[2017-09-12] MEDS ORDERED: DILTIAZEM 5 MG/ML 5ML IVPUSH IVP ONE (17:20)
[2017-09-12] MEDS: NS 0.9% IV SCH (17:30)
[2017-09-12] MEDS: DILTIAZEM IV SCH (17:30)
[2017-09-12] MEDS: IVP IV SCH (17:30)
[2017-09-12] MEDS ORDERED: METOPROLOL TART 5 MG/5 ML VIAL IVP ONE (20:40)
[2017-09-12] MEDS ORDERED: KCL (*) 20 MEQ/100 ML PREMIX 100 ML IV ONE (20:40)
[2017-09-13] VITALS (37 sets, daily range): BP systolic 117–154; BP diastolic 52–98
[2017-09-13] MEDS ORDERED: LORazepam 2 MG/ML VIAL IVP ONE (00:20)
[2017-09-13] MEDS: KCL/D1/2NS 20 MEQ 1000 ML 1,000 ML IV SCH ×2 (00:27→07:38)
[2017-09-13] MEDS ORDERED: POTASSIUM PHOS IVPB ONE (01:00)
[2017-09-13] MEDS ORDERED: NS 0.9% IVPB ONE (01:00)
[2017-09-13] MEDS: IVP IV SCH ×3 (03:30→23:30)
[2017-09-13] MEDS: DILTIAZEM IV SCH ×3 (03:30→23:30)
[2017-09-13] MEDS: NS 0.9% IV SCH ×3 (03:30→23:30)
[2017-09-13 05:23] LABS: PLATELET COUNT, AUTOMATED 232 K/uL (150-450)
[2017-09-13] MEDS: NS 0.9% IVPB SCH ×3 (05:40→17:20)
[2017-09-13] MEDS: TAZO IVPB SCH ×3 (05:40→17:20)
[2017-09-13] MEDS: PIPERACILLIN IVPB SCH ×3 (05:40→17:20)
--- NOTE | 2017-09-13 06:23 | RADIOLOGY IMAGING REPORT ---
FACILITY: [facility] PATIENT NAME: Meenakshi De La Garza : 1940 MR: [id number] V: [id number] EXAM DATE: ORDERING PHYSICIAN: KAUSHIK DUNN TECHNOLOGIST: Location: [facility] [place] Patient: Meenakshi De La Garza : 1940 Visit/Account:[id number] Date of Sevice: 09/13/2017 CHEST SINGLE AP COMPARISONS: Single view chest dated September 12, 2017 ADDITIONAL PERTINENT HISTORY: Pleural effusion FINDINGS: Cardiomediastinal silhouette: Negative. 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 Lung new: Elevation of the right hemidiaphragm with opacity at the right lung base. Background in terstitial scarring. Pleural spaces: Stable small right-sided pleural effusion. Osseous structures: Negative. Surrounding soft tissues: Negative. IMPRESSION: No significant change since previous exam with continued opacity at the right lung base a s well as a small right-sided pleural effusion. Report Dictated By: Teddy Nye MD at 09/13/2017 6:16 AM Report E-Signed By: Teddy Nye MD at 09/13/2017 6:18 AM WSN:[id number]
[2017-09-13] MEDS: PANTOPRAZOLE SOD 40 MG IV VIAL IVP SCH (09:10)
[2017-09-13] MEDS: ENOXAPARIN 40 MG/0.4ML SYR SC SCH (09:10)
--- NOTE | 2017-09-13 09:20 | Hospitalist Progress Note ---
Subjective Progress Notes Subjective This patient was admitted for concerns of a bile leak. She has had intermittent bouts of AFIB over the last several days. Patient Complains of: Cardiovascular: No: Chest Pain Respiratory: No: Shortness of Breath Physical Exam Vital Signs Date Time Temp Pulse Resp B/P (MAP) Pulse Ox O2 Delivery O2 Flow Rate FiO2 09/13/17 08:20 94 Nasal Cannula 2.0 09/13/17 08:16 63 09/13/17 08:00 21 142/67 (92) 09/13/17 00:00 98.0 09/09/17 15:00 45.0 Cardiovascular: Regular Rate and Rhythm Respiratory: Clear to Auscultation Extremities: Edema Integumentary: No Cyanosis Result Diagram: 09/13/17 0453 09/13/17 0453 Assessment and Plan Problems: (1) Acute postoperative respiratory insufficiency Status: Acute Assessment & Plan: She did return from surgery on mechanical ventilation. She was extubated successfully on 09/09. (2) Pneumonia Status: Acute Assessment & Plan: A chest x-ray on 09/11 did show a developing infiltrate in the right lung. She also had a fever and increasing WBC on that day. She had been on Zosyn, but levofloxacin was also added. Cultures have been negative. (3) Atrial fibrillation with RVR Status: Acute Assessment & Plan: She did not have a prior history of A-fib, but did develop this postoperatively. An attempt was made at electrical cardioversion, but this was unsuccessful. She has continued to have intermittent atrial fibrillation and has been on/off a diltiazem infusion. She is not currently on anticoagulation, but would likely benefit from this at some point. (4) Pleural effusion Status: Acute Assessment & Plan: Most likely related to volume status and the bile leakage with a "sympathetic" effusion on the right. This has been improving with intermittent Lasix. (5) Hypokalemia Assessment & Plan: Resolved with supplementation. (6) Low TSH level Assessment & Plan: She does not appear to have a history of hypothyroidism. Her TSH is low, but she is acutely ill. A T4 is within normal range. Recommend repeat TSH in 4-6 weeks. Exam Sepsis Risk: No Definite Risk SNOW VERAS DO Sep 13, 2017 09:20
--- NOTE | 2017-09-13 10:55 | General Surgery Progress Note ---
Subjective Progress Notes Subjective Feels better today. Still weak but had a large bm. Large amount of UOP, mostly incontinent. Physical Exam Vital Signs Date Time Temp Pulse Resp B/P (MAP) Pulse Ox O2 Delivery O2 Flow Rate FiO2 09/13/17 09:52 64 09/13/17 09:30 97.8 26 128/64 (85) 95 High-Flow Nasal Cannula 2.0 09/09/17 15:00 45.0 Intake and Output 09/14/17 07:00 # Voids 1 # Bowel Movements 1 General Appearance: Alert, Awake, No Acute Distress Neuro: No Gross deficits Cardiovascular: Normal Rhythm & Peripheral Pulses (Afib resolved with Diltiazem ) GI: Soft and Non-Tender (Drain with very small amount of serosanguinous drainage) Psych: Alert & Oriented X3, Appropriate Mood & Affect Result Diagram: 09/13/1745209/13/17452 Item Value Date Time White Blood Count 9.4 k/uL 09/13/17452 White Blood Count 13.3 k/uL H 09/12/1724 Phosphorus Level 3.2 mg/dl 09/13/17452 Phosphorus Level 1.5 mg/dl L 09/12/172007 Lipase 2613 U/L H 09/13/17452 Total Bilirubin 1.2 mg/dl 09/13/17452 Alkaline Phosphatase 143 U/L H 09/13/17452 Assessment and Plan Problems: (1) Biloma following surgery Status: Acute Assessment & Plan: Will admit, nothing by mouth, IV fluids, 2 OR for laparoscopy with evacuation of the perihepatic fluid, we'll look for any evidence of bleeding or bile leak, try to control it if possible, and place a drain. I have explained this plan including the procedure to the patient and her and they seem to be agreeable with proceeding with this plan. 09/09/17: POD#1 s/p exploratory laparoscopy with washout, clipping of leaking duct of Luschka in gallbladder fossa, and drain placement, POD#3 s/p lap onesimo. Remained intubated overnight since she was having respiratory issues preop. O/W has remained stable. Hospitalists working on controlling her RVR, may consider electrocardioversion and so will leave intubated until either she responds to diltiazem or until after electrocardioversion and she recovers from sedation. Hopeful for extubation later this morning. Continue ICU care today. 09/10/17: POD#2, POD#4. Doing better this morning. Back in NSR with good rate control. Vital signs look good. No evidence of continued bile leakage. Requiring 10L O2 by oxymask. Will check CXR, continue diuresis as she tolerates , aggressive pulmonary hygiene, will start ambulating her today, PT/OT. PPI for GI prophylaxis, lovenox for VTE prophylaxis. Continue bowel rest until she shows signs that her ileus is resolving. May need to place PICC line and start TPN if not able to eat over the next 2 days. Continue ICU care today. 09/11/17: POD#3, POD#5. Doing well, GI function improving, will try clear diet today. Will place PICC today to give meds and draw blood for labs since she is proving difficult to draw blood from. Back in a-fib with RVR but now trying to convert back to sinus this morning, rate down to less than 100 at time of my visit. Potassium low, will replace and recheck. When better, will diurese more today. Continue PPI for GI prophylaxis, lovenox for VTE prophylaxis, PT/OT, aggressive pulmonary hygiene. 09/12/17: POD#4, POD#6. Doing well. GI function continues to improve. Will try regular diet today since she's passing flatus. Seems to be in NSR with good rate. BNP is down. Will continue to work on diuresis. Continue PPI for GI prophylaxis, lovenox for VTE prophylaxis, PT/OT, aggressive pulmonary hygiene. 09/13/17: POD#5, POD#7. She appears to have turned the corner. She diuresed yesterday after a single dose of lasix. Her effusion appears to be smaller both on CXR and confirmed by a bedside US. The loss in volume appears to be more due to atelectasis than effusion. Her WBC improved and I don't feel that a thoracentesis is required based on her current progress. Her large bm is encouraging for resolution of her ileus. Her lipase is inexplicably rising given that her exam is relatively benign and improving and the other labs are improving. Will continue to follow it. I will also continue to allow her to eat as this is the sole abnormality at the moment. Continue her care in the ICU at least through tomorrow. Increase participation with PT & activity. (2) Atrial fibrillation with RVR Status: Acute Assessment & Plan: Back in a-fib but rate controlled and showing signs of trying to convert back to NSR. (3) S/P laparoscopic cholecystectomy Status: Acute Exam Sepsis Risk: No Definite Risk Problem Qualifiers (1) Biloma following surgery: Encounter type: initial encounter Qualified Codes: T81.89XA - Other complications of procedures, not elsewhere classified, initial encounter; K66.8 - Other specified disorders of peritoneum KAUSHIK DUNN MD Sep 13, 2017 10:55
--- NOTE | 2017-09-13 13:21 | Medical Nutrition Therapy ---
Nutrition Anthropometrics Height (Inches): 64.00 Height (Calculated Centimeters: 162.284876 Weight (Pounds): 109 Weight (Calculated Kilograms): 49.668 BMI Calculated: 20.60 Shaji Nutrition Score: Probably Inadequate Shaji Nutrition Risk Score: 15 Dietary Referral Nutrition Risk Factors: Mech. Ventilated Nutrition Risk Comment: Physical Findings Physical Appearance: Normal BMI Skin Appearance Skin Appearance: Edema Edema Location Modifier: Both Edema Location: Arm Type of Edema: Degree of Edema: Gastrointestinal Symptoms GI Symtoms: Nausea Tube Present: Bowel Sounds: Recent Bowel Pattern: Stool Characteristics: Nutrition/Food History No Significant Nutr. HX Nutritional Diagnosis Nutritional Risk Acuity 2: %IBW 75-80% Nutritional Risk Acuity 4: %IBW 90-100% Past Medical History: HTN, hypercholesterolemia, esophageal reflux, osteoporosis, cholecystectomy Nutritional Acuity: 2-Moderate (biloma post surgery) Nutrition Diagnosis: Inadequate Food Intake Nutrition Etiology: Prolonged Hospitalization Nutrition Problem/Etiology/Sym: Inadequate calorie intake r/t prolonged hospitalization AEB NPO status and lack of nutrition support Energy Requirement: 1300 ([address] Jeor) Protein Requirement: 60 (1.1 g/kg) Fluid Requirement: 1620 (30 ml/kg) Diet Type: Diet as Tolerated EDITH/REG Nutrition Intervention: Cont diet as ordered Additional Diet Restrictions: PUT PROTEIN POWDER IN APPRORIATE FOODS Diet Comment To [facility]: OFFER ENSURE CLEAR NUTR SUPPLMENT WHILE ON CLEAR DIET- OTHER SUPPLEMENT WHEN DIET ADVANCED Nutrition Monitoring & Eval Nutrition Goals: Eat 75-100% Meal RD Patient Assessment Time: [address] Assessment Type: RD Re-Assessment Patient Nutrition Acuity: 2-Moderate Follow Up Date: Sep 16, 2017 Nutritional Comment: 09/09/17 Pt admitted for post op bile leak and resp insufficiency after cholecystectomy. Pt NPO due to intubation w/ propofol. Possibly extubating tomorrow per hospitalist note. Notable labs include Na 134, total pro 5.6, and alb 2.7. Will follow up as diet progresses. 09/10/17 Pt extubated but remains NPO. Continue bowel rest until showing signs of ileus resolving, per MD. May need TPN if not able to eat over next 2 days, per MD as well. I recommend PPN/TPN by tomorrow as pt has been NPO 3 days and admitted with poor appetite. Notable labs include low H/H, total pro 4.8, and alb 2.3. Will continue to follow up. 09/11 Diet advanced to clear liquid. alb 2.6. Will offer nutr supplment and put protein powder in appropriate foods. Will cont to monitor. 09/13 Diet progression to EDITH. Family bring in food for patient. Lipase 2613, Alb 2.3, High AST/ALT, Low Ca+. Follow intake, tolerance to diet, etc. TEDDY WAYNE Sep 13, 2017 13:21
[2017-09-13] MEDS: LEVOFLOXACIN/D5W 750 MG/150 ML 150 ML IVPB SCH (14:16)
[2017-09-13] MEDS: LORazepam 1 MG TAB PO PRN (21:50)
[2017-09-14] VITALS (14 sets, daily range): BP systolic 133–161; BP diastolic 65–98
[2017-09-14] MEDS: TAZO IVPB SCH ×5 (00:08→23:35)
[2017-09-14] MEDS: NS 0.9% IVPB SCH ×5 (00:08→23:35)
[2017-09-14] MEDS: PIPERACILLIN IVPB SCH ×5 (00:08→23:35)
[2017-09-14 05:35] LABS: PLATELET COUNT, AUTOMATED 275 K/uL (150-450)
[2017-09-14] MEDS: KCL (*) 20 MEQ/100 ML PREMIX 100 ML IV SCH ×2 (06:37→09:29)
--- NOTE | 2017-09-14 07:00 | RADIOLOGY IMAGING REPORT ---
FACILITY: [facility] PATIENT NAME: Meenakshi De La Garza : 1940 MR: [id number] V: [id number] EXAM DATE: ORDERING PHYSICIAN: KAUSHIK DUNN TECHNOLOGIST: Location: [facility] Patient: Meenakshi De La Garza : 1940 Visit/Account:[id number] Date of Sevice: 09/14/2017 CHEST PA AND LAT COMPARISONS: Single view chest dated September 13, 2017 ADDITIONAL PERTINENT HISTORY: Post chest tube removal. FINDINGS: Life-support: Left-sided PICC line with its tip in the mid SVC. Cardiomediastinal silhouette: Negative. 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 Lung new: Patchy opacity at both lung bases right greater than left. Pleural spaces: Bilateral pleural effusions greater on the right than left. This is stable from previ ous exam. Osseous structures: Negative. Surrounding soft tissues: Surgical drains involving the right upper quadrant. IMPRESSION: 1. Postoperative changes involving the right upper quadrant. 2. No other new findings from previous exam. Report Dictated By: Teddy Nye MD at 09/14/2017 6:54 AM Report E-Signed By: Teddy Nye MD at 09/14/2017 6:57 AM WSN:[id number]
[2017-09-14] MEDS: KCL/D1/2NS 20 MEQ 1000 ML 1,000 ML IV SCH (07:38)
[2017-09-14] MEDS: ENOXAPARIN 40 MG/0.4ML SYR SC SCH (09:29)
[2017-09-14] MEDS: PANTOPRAZOLE SOD 40 MG IV VIAL IVP SCH (09:29)
[2017-09-14] MEDS: IVP IV SCH (09:30)
[2017-09-14] MEDS: NS 0.9% IV SCH (09:30)
[2017-09-14] MEDS: DILTIAZEM IV SCH (09:30)
--- NOTE | 2017-09-14 09:32 | General Surgery Progress Note ---
Subjective Progress Notes Subjective Feels OK today, slightly better outlook on recovery. Physical Exam Vital Signs Date Time Temp Pulse Resp B/P (MAP) Pulse Ox O2 Delivery O2 Flow Rate FiO2 09/14/17 07:51 73 09/14/17 07:23 93 Nasal Cannula 2.0 09/14/17 07:00 97.6 22 143/69 (93) General Appearance: Alert, Awake Neuro: No Gross deficits Cardiovascular: Normal Rhythm & Peripheral Pulses Respiratory: No Respiratory Distress GI: Soft and Non-Tender (drain with minimal serosanguinous output) Extremities: Soft and Non Tender Result Diagram: 09/14/1752009/14/17520 Item Value Date Time Lipase 3002 U/L H 09/14/17520 Lipase 2613 U/L H 09/13/173 Potassium Level 2.9 mmol/L *L 09/14/17520 Alkaline Phosphatase 135 U/L H 09/14/17520 Alkaline Phosphatase 143 U/L H 09/13/17452 Alanine Aminotransferase (ALT/SGPT) 91 U/L H 09/13/17452 Alanine Aminotransferase (ALT/SGPT) 76 U/L H 09/14/17520 Total Bilirubin 0.9 mg/dl 09/14/17520 Total Bilirubin 1.2 mg/dl 09/13/17452 White Blood Count 9.1 k/uL 09/14/17 05 Assessment and Plan Problems: (1) Biloma following surgery Status: Acute Assessment & Plan: Will admit, nothing by mouth, IV fluids, 2 OR for laparoscopy with evacuation of the perihepatic fluid, we'll look for any evidence of bleeding or bile leak, try to control it if possible, and place a drain. I have explained this plan including the procedure to the patient and her and they seem to be agreeable with proceeding with this plan. 09/09/17: POD#1 s/p exploratory laparoscopy with washout, clipping of leaking duct of Luschka in gallbladder fossa, and drain placement, POD#3 s/p lap onesimo. Remained intubated overnight since she was having respiratory issues preop. O/W has remained stable. Hospitalists working on controlling her RVR, may consider electrocardioversion and so will leave intubated until either she responds to diltiazem or until after electrocardioversion and she recovers from sedation. Hopeful for extubation later this morning. Continue ICU care today. 09/10/17: POD#2, POD#4. Doing better this morning. Back in NSR with good rate control. Vital signs look good. No evidence of continued bile leakage. Requiring 10L O2 by oxymask. Will check CXR, continue diuresis as she tolerates , aggressive pulmonary hygiene, will start ambulating her today, PT/OT. PPI for GI prophylaxis, lovenox for VTE prophylaxis. Continue bowel rest until she shows signs that her ileus is resolving. May need to place PICC line and start TPN if not able to eat over the next 2 days. Continue ICU care today. 09/11/17: POD#3, POD#5. Doing well, GI function improving, will try clear diet today. Will place PICC today to give meds and draw blood for labs since she is proving difficult to draw blood from. Back in a-fib with RVR but now trying to convert back to sinus this morning, rate down to less than 100 at time of my visit. Potassium low, will replace and recheck. When better, will diurese more today. Continue PPI for GI prophylaxis, lovenox for VTE prophylaxis, PT/OT, aggressive pulmonary hygiene. 09/12/17: POD#4, POD#6. Doing well. GI function continues to improve. Will try regular diet today since she's passing flatus. Seems to be in NSR with good rate. BNP is down. Will continue to work on diuresis. Continue PPI for GI prophylaxis, lovenox for VTE prophylaxis, PT/OT, aggressive pulmonary hygiene. 09/13/17: POD#5, POD#7. She appears to have turned the corner. She diuresed yesterday after a single dose of lasix. Her effusion appears to be smaller both on CXR and confirmed by a bedside US. The loss in volume appears to be more due to atelectasis than effusion. Her WBC improved and I don't feel that a thoracentesis is required based on her current progress. Her large bm is encouraging for resolution of her ileus. Her lipase is inexplicably rising given that her exam is relatively benign and improving and the other labs are improving. Will continue to follow it. I will also continue to allow her to eat as this is the sole abnormality at the moment. Continue her care in the ICU at least through tomorrow. Increase participation with PT & activity. 09/14/: POD #6, POD #8. Overall continued progress. Her lipase is again up but appears to be plateauing. Her other LFTs are all normal. I plan on continuing to follow and will continue to let her eat at this point. He right lung aeration is improved and her effusion is responding appropriately without the need for drainage. I will transfer her to floor status and focus on getting her out of bed. (2) Atrial fibrillation with RVR Status: Acute Assessment & Plan: Back in a-fib but rate controlled and showing signs of trying to convert back to NSR. (3) S/P laparoscopic cholecystectomy Status: Acute Time Spent: < 30 min Exam Sepsis Risk: No Definite Risk Problem Qualifiers (1) Biloma following surgery: Encounter type: initial encounter Qualified Codes: T81.89XA - Other complications of procedures, not elsewhere classified, initial encounter; K66.8 - Other specified disorders of peritoneum KAUSHIK DUNN MD Sep 14, 2017 09:32
--- NOTE | 2017-09-14 18:33 | Hospitalist Progress Note ---
Subjective Progress Notes Subjective Mrs. Bryant is a 77-year-old female, postoperative day 2 from a laparoscopic cholecystectomy for cholecystitis, discharged to home yesterday, presents with worsening abdominal pain and shortness of breath as well as weakness that started last evening. She presented to the emergency room where her white count is mildly elevated, her transaminases and total bilirubin are mildly elevated, and CT scan is consistent with a biloma. She is being admitted and taken to surgery to address this. 09/14: She developed Acute Peritonitis and Pancreatitis. and currently on Levaquin and Zosyn. Today she is feeling better and tolerating diet. She denies any abdominal pain, N/V/D etc. Patient Complains of: Neurological: Weakness, No: Syncope, Confusion, Dizziness Cardiovascular: No: Chest Pain, Palpitations Respiratory: No: Cough, Congestion, Shortness of Breath Gastrointestinal: Flatus, No Nausea, No Vomiting, No Bowel Movement Genitourinary: No Dysuria, No Hematuria Musculoskeletal: No: Pain, Sprain, Strain Physical Exam Vital Signs Date Time Temp Pulse Resp B/P (MAP) Pulse Ox O2 Delivery O2 Flow Rate FiO2 09/14/17 15:21 97.9 79 16 150/76 (100) 97 Nasal Cannula 2.0 Intake and Output 09/15/17 07:00 Intake Total 462.3 ml Output Total 15 ml Balance 447.3 ml Intake Oral 0 ml IV Total 462.3 ml Drainage Total 15 ml # Voids 1 # Bowel Movements 1 General Appearance: Alert, Awake, No Acute Distress, Afebrile Neuro: No Gross deficits Eyes: PERRLA ENT: Normal Cardiovascular: Normal Rhythm & Peripheral Pulses Respiratory: No Respiratory Distress GI: Soft and Non-Tender Extremities: Soft and Non Tender Psych: Alert & Oriented X3, Appropriate Mood & Affect (drowsy ) Result Diagram: 09/14/1752009/14/17520 Assessment and Plan Problems: (1) Biloma following surgery Status: Acute Assessment & Plan: Will admit, nothing by mouth, IV fluids, 2 OR for laparoscopy with evacuation of the perihepatic fluid, we'll look for any evidence of bleeding or bile leak, try to control it if possible, and place a drain. I have explained this plan including the procedure to the patient and her and they seem to be agreeable with proceeding with this plan. 09/09/17: POD#1 s/p exploratory laparoscopy with washout, clipping of leaking duct of Luschka in gallbladder fossa, and drain placement, POD#3 s/p lap onesimo. Remained intubated overnight since she was having respiratory issues preop. O/W has remained stable. Hospitalists working on controlling her RVR, may consider electrocardioversion and so will leave intubated until either she responds to diltiazem or until after electrocardioversion and she recovers from sedation. Hopeful for extubation later this morning. Continue ICU care today. 09/10/17: POD#2, POD#4. Doing better this morning. Back in NSR with good rate control. Vital signs look good. No evidence of continued bile leakage. Requiring 10L O2 by oxymask. Will check CXR, continue diuresis as she tolerates , aggressive pulmonary hygiene, will start ambulating her today, PT/OT. PPI for GI prophylaxis, lovenox for VTE prophylaxis. Continue bowel rest until she shows signs that her ileus is resolving. May need to place PICC line and start TPN if not able to eat over the next 2 days. Continue ICU care today. 09/11/17: POD#3, POD#5. Doing well, GI function improving, will try clear diet today. Will place PICC today to give meds and draw blood for labs since she is proving difficult to draw blood from. Back in a-fib with RVR but now trying to convert back to sinus this morning, rate down to less than 100 at time of my visit. Potassium low, will replace and recheck. When better, will diurese more today. Continue PPI for GI prophylaxis, lovenox for VTE prophylaxis, PT/OT, aggressive pulmonary hygiene. 09/12/17: POD#4, POD#6. Doing well. GI function continues to improve. Will try regular diet today since she's passing flatus. Seems to be in NSR with good rate. BNP is down. Will continue to work on diuresis. Continue PPI for GI prophylaxis, lovenox for VTE prophylaxis, PT/OT, aggressive pulmonary hygiene. 09/13/17: POD#5, POD#7. She appears to have turned the corner. She diuresed yesterday after a single dose of lasix. Her effusion appears to be smaller both on CXR and confirmed by a bedside US. The loss in volume appears to be more due to atelectasis than effusion. Her WBC improved and I don't feel that a thoracentesis is required based on her current progress. Her large bm is encouraging for resolution of her ileus. Her lipase is inexplicably rising given that her exam is relatively benign and improving and the other labs are improving. Will continue to follow it. I will also continue to allow her to eat as this is the sole abnormality at the moment. Continue her care in the ICU at least through tomorrow. Increase participation with PT & activity. 09/14/: POD #6, POD #8. Overall continued progress. Her lipase is again up but appears to be plateauing. Her other LFTs are all normal. I plan on continuing to follow and will continue to let her eat at this point. Her right lung aeration is improved and her effusion is responding appropriately without the need for drainage. I will transfer her to floor status and focus on getting her out of bed. I agree with the above surgical plan and I will repeat Lipase in am. I will also stop her Levaquin today and continue her Zosyn. I will review her home meds and start if necessary. (2) Hypokalemia Status: Acute Assessment & Plan: Resolved with supplementation. 09/14: I will replace with KCL and recheck her Mag, K and PO4 level in am (3) Atrial fibrillation with RVR Status: Resolved Assessment & Plan: She did not have a prior history of A-fib, but did develop this postoperatively. An attempt was made at electrical cardioversion, but this was unsuccessful. She has continued to have intermittent atrial fibrillation and has been on/off a diltiazem infusion. She is not currently on anticoagulation, but would likely benefit from this at some point. (4) Pneumonia Status: Resolved Assessment & Plan: A chest x-ray on 09/11 did show a developing infiltrate in the right lung. She also had a fever and increasing WBC on that day. She had been on Zosyn, but levofloxacin was also added. Cultures have been negative. (5) Acute postoperative respiratory insufficiency Status: Resolved Assessment & Plan: She did return from surgery on mechanical ventilation. She was extubated successfully on 09/09. (6) Pleural effusion Status: Resolved Assessment & Plan: Most likely related to volume status and the bile leakage with a "sympathetic" effusion on the right. This has been improving with intermittent Lasix. (7) Low TSH level Status: Chronic Assessment & Plan: She does not appear to have a history of hypothyroidism. Her TSH is low, but she is acutely ill. A T4 is within normal range. Recommend repeat TSH in 4-6 weeks. Time Spent on Plan of Care: > 30 min Copies to: KATRINA WINTERS MD; SNOW ALVARADO MD Exam Sepsis Risk: No Definite Risk Problem Qualifiers (1) Biloma following surgery: Encounter type: initial encounter Qualified Codes: T81.89XA - Other complications of procedures, not elsewhere classified, initial encounter; K66.8 - Other specified disorders of peritoneum ALLEN CAMARILLO MD Sep 14, 2017 18:33
[2017-09-14] MEDS: LORazepam 1 MG TAB PO PRN (20:26)
[2017-09-14] MEDS: amLODIPine BESYL(*) 5 MG TAB PO SCH (20:26)
[2017-09-15 02:55] VITALS: BP 160/71
[2017-09-15] MEDS: KCL/D1/2NS 20 MEQ 1000 ML 1,000 ML IV SCH (04:00)
[2017-09-15 05:53] LABS: PLATELET COUNT, AUTOMATED 315 K/uL (150-450)
[2017-09-15] MEDS: NS 0.9% IVPB SCH ×3 (06:00→17:48)
[2017-09-15] MEDS: PIPERACILLIN IVPB SCH ×3 (06:00→17:48)
[2017-09-15] MEDS: TAZO IVPB SCH ×3 (06:00→17:48)
[2017-09-15] MEDS: KCL (*) 20 MEQ/100 ML PREMIX 100 ML IV SCH ×2 (07:26→10:06)
[2017-09-15 07:31] VITALS: BP 140/72
[2017-09-15] MEDS: CALCIUM CARBONATE/VITAMIN D3 PO SCH (08:41)
[2017-09-15] MEDS: CHOLECALCIFEROL 1000 UNIT TAB PO SCH (08:41)
[2017-09-15] MEDS: amLODIPine BESYL(*) 5 MG TAB PO SCH ×2 (08:41→19:53)
[2017-09-15] MEDS: ENOXAPARIN 40 MG/0.4ML SYR SC SCH (08:41)
[2017-09-15] MEDS: PANTOPRAZOLE SOD 40 MG IV VIAL IVP SCH (08:42)
--- NOTE | 2017-09-15 11:02 | General Surgery Progress Note ---
Subjective Progress Notes Subjective Better every day. She spent a good part of yesterday sitting up which was a big improvement. She is now able to walk without use of a walker though remains weak. Physical Exam Vital Signs Date Time Temp Pulse Resp B/P (MAP) Pulse Ox O2 Delivery O2 Flow Rate FiO2 09/15/17 07:42 94 Nasal Cannula 2.0 09/15/17 07:31 98.2 71 16 140/72 (94) Intake and Output 09/16/17 07:00 Intake Total 110 ml Balance 110 ml Intake Oral 0 ml IV Total 110 ml # Voids 1 # Bowel Movements 1 General Appearance: Alert, Awake, No Acute Distress Cardiovascular: Normal Rhythm & Peripheral Pulses Respiratory: No Respiratory Distress GI: Soft and Non-Tender Result Diagram: 09/15/1739 09/15/17523 Assessment and Plan Problems: (1) Biloma following surgery Status: Acute Assessment & Plan: Will admit, nothing by mouth, IV fluids, 2 OR for laparoscopy with evacuation of the perihepatic fluid, we'll look for any evidence of bleeding or bile leak, try to control it if possible, and place a drain. I have explained this plan including the procedure to the patient and her and they seem to be agreeable with proceeding with this plan. 09/09/17: POD#1 s/p exploratory laparoscopy with washout, clipping of leaking duct of Luschka in gallbladder fossa, and drain placement, POD#3 s/p lap onesimo. Remained intubated overnight since she was having respiratory issues preop. O/W has remained stable. Hospitalists working on controlling her RVR, may consider electrocardioversion and so will leave intubated until either she responds to diltiazem or until after electrocardioversion and she recovers from sedation. Hopeful for extubation later this morning. Continue ICU care today. 09/10/17: POD#2, POD#4. Doing better this morning. Back in NSR with good rate control. Vital signs look good. No evidence of continued bile leakage. Requiring 10L O2 by oxymask. Will check CXR, continue diuresis as she tolerates , aggressive pulmonary hygiene, will start ambulating her today, PT/OT. PPI for GI prophylaxis, lovenox for VTE prophylaxis. Continue bowel rest until she shows signs that her ileus is resolving. May need to place PICC line and start TPN if not able to eat over the next 2 days. Continue ICU care today. 09/11/17: POD#3, POD#5. Doing well, GI function improving, will try clear diet today. Will place PICC today to give meds and draw blood for labs since she is proving difficult to draw blood from. Back in a-fib with RVR but now trying to convert back to sinus this morning, rate down to less than 100 at time of my visit. Potassium low, will replace and recheck. When better, will diurese more today. Continue PPI for GI prophylaxis, lovenox for VTE prophylaxis, PT/OT, aggressive pulmonary hygiene. 09/12/17: POD#4, POD#6. Doing well. GI function continues to improve. Will try regular diet today since she's passing flatus. Seems to be in NSR with good rate. BNP is down. Will continue to work on diuresis. Continue PPI for GI prophylaxis, lovenox for VTE prophylaxis, PT/OT, aggressive pulmonary hygiene. 09/13/17: POD#5, POD#7. She appears to have turned the corner. She diuresed yesterday after a single dose of lasix. Her effusion appears to be smaller both on CXR and confirmed by a bedside US. The loss in volume appears to be more due to atelectasis than effusion. Her WBC improved and I don't feel that a thoracentesis is required based on her current progress. Her large bm is encouraging for resolution of her ileus. Her lipase is inexplicably rising given that her exam is relatively benign and improving and the other labs are improving. Will continue to follow it. I will also continue to allow her to eat as this is the sole abnormality at the moment. Continue her care in the ICU at least through tomorrow. Increase participation with PT & activity. 09/14/17: POD #6, POD #8. Overall continued progress. Her lipase is again up but appears to be plateauing. Her other LFTs are all normal. I plan on continuing to follow and will continue to let her eat at this point. He right lung aeration is improved and her effusion is responding appropriately without the need for drainage. I will transfer her to floor status and focus on getting her out of bed. 09/15/17: POD#7, 9. Lipase up a smaller increment today. Continue current course as she is clinically improving. Continue IV Abx. Recheck lipase tomorrow; this will have to be improving prior to d/c. Hypokalemia and hypomagnesemia being managed by IM. (2) Atrial fibrillation with RVR Status: Resolved Assessment & Plan: Back in a-fib but rate controlled and showing signs of trying to convert back to NSR. (3) S/P laparoscopic cholecystectomy Status: Acute Time Spent: < 30 min Exam Sepsis Risk: No Definite Risk Problem Qualifiers (1) Biloma following surgery: Encounter type: initial encounter Qualified Codes: T81.89XA - Other complications of procedures, not elsewhere classified, initial encounter; K66.8 - Other specified disorders of peritoneum KAUSHIK DUNN MD Sep 15, 2017 11:02
[2017-09-15 11:05] VITALS: BP 115/80
[2017-09-15] MEDS ORDERED: MAGNESIUM SUL* 2 GM/50 ML IVPB 50 ML IVPB ONE ×2 (11:15→14:00)
--- NOTE | 2017-09-15 11:43 | Hospitalist Progress Note ---
Subjective Progress Notes Subjective Mrs. Bryant is a 77-year-old female, postoperative day 2 from a laparoscopic cholecystectomy for cholecystitis, discharged to home yesterday, presents with worsening abdominal pain and shortness of breath as well as weakness that started last evening. She presented to the emergency room where her white count is mildly elevated, her transaminases and total bilirubin are mildly elevated, and CT scan is consistent with a biloma. She is being admitted and taken to surgery to address this. 09/14: She developed Acute Peritonitis and Pancreatitis. and currently on Levaquin and Zosyn. Today she is feeling better and tolerating diet. She denies any abdominal pain, N/V/D etc. 09/15: She is feeling better today and her appetite is better. She is tolerating the diet and denies any N/V/D/fever/abd. pain. Her Lipase and Amylase is still high and I have discussed with the surgeon and recommended to closely watch the levels. She is hemodynamically stable. Her K and Mg levels are low today. Patient Complains of: Neurological: Weakness, No: Syncope, Confusion, Dizziness Cardiovascular: No: Chest Pain, Palpitations Respiratory: No: Cough, Congestion, Shortness of Breath Gastrointestinal: Flatus, No Nausea, No Vomiting Genitourinary: No Dysuria, No Hematuria Musculoskeletal: No: Pain, Sprain, Strain Physical Exam Vital Signs Date Time Temp Pulse Resp B/P (MAP) Pulse Ox O2 Delivery O2 Flow Rate FiO2 09/15/17 11:05 97.7 100 16 115/80 (92) 90 Room Air 09/15/17 07:42 2.0 Intake and Output 09/16/17 07:00 Intake Total 110 ml Balance 110 ml Intake Oral 0 ml IV Total 110 ml # Voids 1 # Bowel Movements 1 General Appearance: Alert, Awake, No Acute Distress, Afebrile Neuro: No Gross deficits Eyes: PERRLA ENT: Normal Cardiovascular: Normal Rhythm & Peripheral Pulses, No JVD GI: Soft and Non-Tender (mild epigastric tenderness on deep palpation) Extremities: Soft and Non Tender Integumentary: Skin Intact without Lesion / Mass Psych: Alert & Oriented X3, Appropriate Mood & Affect Result Diagram: 09/15/17 0539 09/15/17 0524 Assessment and Plan Problems: (1) Biloma following surgery Status: Acute Assessment & Plan: Will admit, nothing by mouth, IV fluids, 2 OR for laparoscopy with evacuation of the perihepatic fluid, we'll look for any evidence of bleeding or bile leak, try to control it if possible, and place a drain. I have explained this plan including the procedure to the patient and her and they seem to be agreeable with proceeding with this plan. 09/09/17: POD#1 s/p exploratory laparoscopy with washout, clipping of leaking duct of Luschka in gallbladder fossa, and drain placement, POD#3 s/p lap onesimo. Remained intubated overnight since she was having respiratory issues preop. O/W has remained stable. Hospitalists working on controlling her RVR, may consider electrocardioversion and so will leave intubated until either she responds to diltiazem or until after electrocardioversion and she recovers from sedation. Hopeful for extubation later this morning. Continue ICU care today. 09/10/17: POD#2, POD#4. Doing better this morning. Back in NSR with good rate control. Vital signs look good. No evidence of continued bile leakage. Requiring 10L O2 by oxymask. Will check CXR, continue diuresis as she tolerates , aggressive pulmonary hygiene, will start ambulating her today, PT/OT. PPI for GI prophylaxis, lovenox for VTE prophylaxis. Continue bowel rest until she shows signs that her ileus is resolving. May need to place PICC line and start TPN if not able to eat over the next 2 days. Continue ICU care today. 09/11/17: POD#3, POD#5. Doing well, GI function improving, will try clear diet today. Will place PICC today to give meds and draw blood for labs since she is proving difficult to draw blood from. Back in a-fib with RVR but now trying to convert back to sinus this morning, rate down to less than 100 at time of my visit. Potassium low, will replace and recheck. When better, will diurese more today. Continue PPI for GI prophylaxis, lovenox for VTE prophylaxis, PT/OT, aggressive pulmonary hygiene. 09/12/17: POD#4, POD#6. Doing well. GI function continues to improve. Will try regular diet today since she's passing flatus. Seems to be in NSR with good rate. BNP is down. Will continue to work on diuresis. Continue PPI for GI prophylaxis, lovenox for VTE prophylaxis, PT/OT, aggressive pulmonary hygiene. 09/13/17: POD#5, POD#7. She appears to have turned the corner. She diuresed yesterday after a single dose of lasix. Her effusion appears to be smaller both on CXR and confirmed by a bedside US. The loss in volume appears to be more due to atelectasis than effusion. Her WBC improved and I don't feel that a thoracentesis is required based on her current progress. Her large bm is encouraging for resolution of her ileus. Her lipase is inexplicably rising given that her exam is relatively benign and improving and the other labs are improving. Will continue to follow it. I will also continue to allow her to eat as this is the sole abnormality at the moment. Continue her care in the ICU at least through tomorrow. Increase participation with PT & activity. 09/14/17: POD #6, POD #8. Overall continued progress. Her lipase is again up but appears to be plateauing. Her other LFTs are all normal. I plan on continuing to follow and will continue to let her eat at this point. Her right lung aeration is improved and her effusion is responding appropriately without the need for drainage. I will transfer her to floor status and focus on getting her out of bed. I agree with the above surgical plan and I will repeat Lipase in am. I will also stop her Levaquin today and continue her Zosyn. I will review her home meds and start if necessary. 09/15: I will closely observe her abdominal issues specially Lipase levels and management as per surgery. She is off Levaquin and on Zosyn. I will change her Protonix to PO and decrease her IVF to 30ml/h (2) Hypokalemia Status: Acute Assessment & Plan: Resolved with supplementation. 09/14: I will replace with KCL and recheck her Mag, K and PO4 level in am 09/15: I will give her KCL 80meq total today and 2Gm of Mag.Sulphate IV today and recheck her K and Mg levels in am (3) Atrial fibrillation with RVR Status: Resolved Assessment & Plan: She did not have a prior history of A-fib, but did develop this postoperatively. An attempt was made at electrical cardioversion, but this was unsuccessful. She has continued to have intermittent atrial fibrillation and has been on/off a diltiazem infusion. She is not currently on anticoagulation, but would likely benefit from this at some point. (4) Pneumonia Status: Resolved Assessment & Plan: A chest x-ray on 09/11 did show a developing infiltrate in the right lung. She also had a fever and increasing WBC on that day. She had been on Zosyn, but levofloxacin was also added. Cultures have been negative. (5) Acute postoperative respiratory insufficiency Status: Resolved Assessment & Plan: She did return from surgery on mechanical ventilation. She was extubated successfully on 09/09. (6) Pleural effusion Status: Resolved Assessment & Plan: Most likely related to volume status and the bile leakage with a "sympathetic" effusion on the right. This has been improving with intermittent Lasix. (7) Low TSH level Status: Chronic Assessment & Plan: She does not appear to have a history of hypothyroidism. Her TSH is low, but she is acutely ill. A T4 is within normal range. Recommend repeat TSH in 4-6 weeks. Central Venous Access Medical Necessity for Access: IV Access, Medication Administration Time Spent on Plan of Care: > 30 min Copies to: KATRINA WINTERS MD Exam Sepsis Risk: No Definite Risk Problem Qualifiers (1) Biloma following surgery: Encounter type: initial encounter Qualified Codes: T81.89XA - Other complications of procedures, not elsewhere classified, initial encounter; K66.8 - Other specified disorders of peritoneum ALLEN CAMARILLO MD Sep 15, 2017 11:43
[2017-09-15 15:15] VITALS: BP 144/64
[2017-09-15 19:50] VITALS: BP 153/87
[2017-09-15] MEDS: LORazepam 1 MG TAB PO PRN (19:53)
[2017-09-15] MEDS: MORPHINE 2 MG/ML SYR IVP PRN (23:46)
[2017-09-16] MEDS: PIPERACILLIN IVPB SCH ×5 (06:00→23:38)
[2017-09-16] MEDS: TAZO IVPB SCH ×5 (06:00→23:38)
[2017-09-16] MEDS: NS 0.9% IVPB SCH ×5 (06:00→23:38)
[2017-09-16 06:09] LABS: PLATELET COUNT, AUTOMATED 346 K/uL (150-450)
[2017-09-16] MEDS ORDERED: ALTEPLASE RECOMB 2 MG VIAL IVP ONE (06:45)
--- NOTE | 2017-09-16 07:20 | General Surgery Progress Note ---
Subjective Progress Notes Subjective Patient sleeping, I'll return to see her later. She had a bowel movement this morning and slept much better per RN. Physical Exam Vital Signs Date Time Temp Pulse Resp B/P (MAP) Pulse Ox O2 Delivery O2 Flow Rate FiO2 09/15/17 19:50 99.0 85 16 153/87 (109) 92 Room Air 09/15/17 15:15 0.5 Result Diagram: 09/16/1752609/16/17526 Item Value Date Time Lipase 3127 U/L H 09/15/17 0524 Lipase 3002 U/L H 09/14/17520 Lipase 2613 U/L H 09/13/17452 White Blood Count 10.2 k/uL 09/15/1739 Lipase 1454 U/L H 09/16/17526 Potassium Level 4.0 mmol/L 09/16/17526 Magnesium Level 1.9 mg/dl 09/16/17526 Assessment and Plan Problems: (1) Biloma following surgery Status: Acute Assessment & Plan: Will admit, nothing by mouth, IV fluids, 2 OR for laparoscopy with evacuation of the perihepatic fluid, we'll look for any evidence of bleeding or bile leak, try to control it if possible, and place a drain. I have explained this plan including the procedure to the patient and her and they seem to be agreeable with proceeding with this plan. 09/09/17: POD#1 s/p exploratory laparoscopy with washout, clipping of leaking duct of Luschka in gallbladder fossa, and drain placement, POD#3 s/p lap onesimo. Remained intubated overnight since she was having respiratory issues preop. O/W has remained stable. Hospitalists working on controlling her RVR, may consider electrocardioversion and so will leave intubated until either she responds to diltiazem or until after electrocardioversion and she recovers from sedation. Hopeful for extubation later this morning. Continue ICU care today. 09/10/17: POD#2, POD#4. Doing better this morning. Back in NSR with good rate control. Vital signs look good. No evidence of continued bile leakage. Requiring 10L O2 by oxymask. Will check CXR, continue diuresis as she tolerates , aggressive pulmonary hygiene, will start ambulating her today, PT/OT. PPI for GI prophylaxis, lovenox for VTE prophylaxis. Continue bowel rest until she shows signs that her ileus is resolving. May need to place PICC line and start TPN if not able to eat over the next 2 days. Continue ICU care today. 09/11/17: POD#3, POD#5. Doing well, GI function improving, will try clear diet today. Will place PICC today to give meds and draw blood for labs since she is proving difficult to draw blood from. Back in a-fib with RVR but now trying to convert back to sinus this morning, rate down to less than 100 at time of my visit. Potassium low, will replace and recheck. When better, will diurese more today. Continue PPI for GI prophylaxis, lovenox for VTE prophylaxis, PT/OT, aggressive pulmonary hygiene. 09/12/17: POD#4, POD#6. Doing well. GI function continues to improve. Will try regular diet today since she's passing flatus. Seems to be in NSR with good rate. BNP is down. Will continue to work on diuresis. Continue PPI for GI prophylaxis, lovenox for VTE prophylaxis, PT/OT, aggressive pulmonary hygiene. 09/13/17: POD#5, POD#7. She appears to have turned the corner. She diuresed yesterday after a single dose of lasix. Her effusion appears to be smaller both on CXR and confirmed by a bedside US. The loss in volume appears to be more due to atelectasis than effusion. Her WBC improved and I don't feel that a thoracentesis is required based on her current progress. Her large bm is encouraging for resolution of her ileus. Her lipase is inexplicably rising given that her exam is relatively benign and improving and the other labs are improving. Will continue to follow it. I will also continue to allow her to eat as this is the sole abnormality at the moment. Continue her care in the ICU at least through tomorrow. Increase participation with PT & activity. 09/14/17: POD #6, POD #8. Overall continued progress. Her lipase is again up but appears to be plateauing. Her other LFTs are all normal. I plan on continuing to follow and will continue to let her eat at this point. He right lung aeration is improved and her effusion is responding appropriately without the need for drainage. I will transfer her to floor status and focus on getting her out of bed. 09/15/17: POD#7, 9. Lipase up a smaller increment today. Continue current course as she is clinically improving. Continue IV Abx. Recheck lipase tomorrow; this will have to be improving prior to d/c. Hypokalemia and hypomagnesemia being managed by IM. 09/16/17: POD#8, 10. Turned the corner. Lipase dropped in half, hypokalemia and hypomagnesemia resolved. Ileus resolved. Will work on stamina and assure she is safe to go home today with target for discharge tomorrow. (2) Atrial fibrillation with RVR Status: Resolved Assessment & Plan: Back in a-fib but rate controlled and showing signs of trying to convert back to NSR. (3) S/P laparoscopic cholecystectomy Status: Acute Central Venous Access Medical Necessity for Access: IV Access, Medication Administration Time Spent: < 30 min Exam Sepsis Risk: No Definite Risk Problem Qualifiers (1) Biloma following surgery: Encounter type: initial encounter Qualified Codes: T81.89XA - Other complications of procedures, not elsewhere classified, initial encounter; K66.8 - Other specified disorders of peritoneum KAUSHIK DUNN MD Sep 16, 2017 07:20
[2017-09-16 07:59] VITALS: BP 152/72
[2017-09-16] MEDS: CALCIUM CARBONATE/VITAMIN D3 PO SCH (10:01)
[2017-09-16] MEDS: CHOLECALCIFEROL 1000 UNIT TAB PO SCH (10:01)
[2017-09-16] MEDS: PANTOPRAZOLE SOD 40 MG TABEC PO SCH (10:02)
[2017-09-16] MEDS: amLODIPine BESYL(*) 5 MG TAB PO SCH ×2 (10:02→21:01)
[2017-09-16] MEDS: ENOXAPARIN 40 MG/0.4ML SYR SC SCH (10:03)
[2017-09-16] MEDS: KCL/D1/2NS 20 MEQ 1000 ML 1,000 ML IV SCH (10:21)
[2017-09-16] MEDS ORDERED: traZODone HCL 50 MG TAB PO PRN (10:50)
[2017-09-16 11:43] VITALS: BP 143/67
--- NOTE | 2017-09-16 13:41 | Medical Nutrition Therapy ---
Nutrition Anthropometrics Height (Inches): 64.00 Height (Calculated Centimeters: 162.990402 Weight (Pounds): 106 Weight (Calculated Kilograms): 48.081 BMI Calculated: 20.60 Shaji Nutrition Score: Probably Inadequate Shaji Nutrition Risk Score: 16 Dietary Referral Nutrition Risk Factors: Mech. Ventilated Nutrition Risk Comment: Physical Findings Physical Appearance: Normal BMI Skin Appearance Skin Appearance: Edema Edema Location Modifier: Both Edema Location: Arm Type of Edema: Degree of Edema: Gastrointestinal Symptoms GI Symtoms: Appetite Changes Tube Present: Bowel Sounds: Recent Bowel Pattern: Stool Characteristics: Nutritional Diagnosis Nutritional Risk Acuity 2: %IBW 75-80% Nutritional Risk Acuity 4: %IBW 90-100% Past Medical History: HTN, hypercholesterolemia, esophageal reflux, osteoporosis, cholecystectomy Nutritional Acuity: 2-Moderate (biloma post surgery) Nutrition Diagnosis: Inadequate Food Intake Nutrition Etiology: Prolonged Hospitalization Nutrition Problem/Etiology/Sym: Inadequate calorie intake r/t prolonged hospitalization AEB NPO status and lack of nutrition support Energy Requirement: 1300 ([place] [address] Jeor) Protein Requirement: 60 (1.1 g/kg) Fluid Requirement: 1620 (30 ml/kg) Diet Type: Diet as Tolerated EDITH/REG Nutrition Intervention: Cont diet as ordered Additional Diet Restrictions: PUT PROTEIN POWDER IN APPRORIATE FOODS Diet Comment To [facility]: OFFER ENSURE CLEAR NUTR SUPPLMENT WHILE ON CLEAR DIET- OTHER SUPPLEMENT WHEN DIET ADVANCED Nutrition Monitoring & Eval RD Patient Assessment Time: [address] Assessment Type: RD Re-Assessment Patient Nutrition Acuity: 2-Moderate Follow Up Date: Sep 16, 2017 Nutritional Comment: 09/09/17 Pt admitted for post op bile leak and resp insufficiency after cholecystectomy. Pt NPO due to intubation w/ propofol. Possibly extubating tomorrow per hospitalist note. Notable labs include Na 134, total pro 5.6, and alb 2.7. Will follow up as diet progresses. 09/10/17 Pt extubated but remains NPO. Continue bowel rest until showing signs of ileus resolving, per MD. May need TPN if not able to eat over next 2 days, per MD as well. I recommend PPN/TPN by tomorrow as pt has been NPO 3 days and admitted with poor appetite. Notable labs include low H/H, total pro 4.8, and alb 2.3. Will continue to follow up. 09/11 Diet advanced to clear liquid. alb 2.6. Will offer nutr supplment and put protein powder in appropriate foods. Will cont to monitor. 09/13 Diet progression to EDITH. Family bring in food for patient. Lipase 2613, Alb 2.3, High AST/ALT, Low Ca+. Follow intake, tolerance to diet, etc. 09/16 PO intake 50-100%. Alb 2.3, Low H/H, Amylase 279, Lipase 1454. Encourage intake. TEDDY WAYNE Sep 16, 2017 13:41
[2017-09-16 15:20] VITALS: BP 152/67
[2017-09-16] MEDS: ACETAMINOPHEN 325 MG TAB PO PRN (18:46)
--- NOTE | 2017-09-16 19:40 | Hospitalist Progress Note ---
Subjective Progress Notes Subjective Feeling better today. Eating better. Has been ambulating. Physical Exam Vital Signs Date Time Temp Pulse Resp B/P (MAP) Pulse Ox O2 Delivery O2 Flow Rate FiO2 09/16/17 15:20 99.1 74 16 152/67 (95) 95 09/16/17 11:43 Room Air 09/15/17 15:15 0.5 Intake and Output 09/17/17 07:00 Intake Total 610 ml Output Total 30 ml Balance 580 ml Intake Oral 510 ml IV Total 100 ml Drainage Total 30 ml # Voids 3 # Bowel Movements 1 General Appearance: Alert, Awake, No Acute Distress Neuro: No Gross deficits Cardiovascular: Regular Rate and Rhythm Respiratory: Other (Decreased BS R base.) GI: Soft and Non-Tender Extremities: Warm, Perfused Psych: Appropriate Mood & Affect Result Diagram: 09/16/1752609/16/17526 Assessment and Plan Problems: (1) Biloma following surgery Status: Acute Assessment & Plan: Will admit, nothing by mouth, IV fluids, 2 OR for laparoscopy with evacuation of the perihepatic fluid, we'll look for any evidence of bleeding or bile leak, try to control it if possible, and place a drain. I have explained this plan including the procedure to the patient and her and they seem to be agreeable with proceeding with this plan. 09/09/17: POD#1 s/p exploratory laparoscopy with washout, clipping of leaking duct of Luschka in gallbladder fossa, and drain placement, POD#3 s/p lap onesimo. Remained intubated overnight since she was having respiratory issues preop. O/W has remained stable. Hospitalists working on controlling her RVR, may consider electrocardioversion and so will leave intubated until either she responds to diltiazem or until after electrocardioversion and she recovers from sedation. Hopeful for extubation later this morning. Continue ICU care today. 09/10/17: POD#2, POD#4. Doing better this morning. Back in NSR with good rate control. Vital signs look good. No evidence of continued bile leakage. Requiring 10L O2 by oxymask. Will check CXR, continue diuresis as she tolerates , aggressive pulmonary hygiene, will start ambulating her today, PT/OT. PPI for GI prophylaxis, lovenox for VTE prophylaxis. Continue bowel rest until she shows signs that her ileus is resolving. May need to place PICC line and start TPN if not able to eat over the next 2 days. Continue ICU care today. 09/11/17: POD#3, POD#5. Doing well, GI function improving, will try clear diet today. Will place PICC today to give meds and draw blood for labs since she is proving difficult to draw blood from. Back in a-fib with RVR but now trying to convert back to sinus this morning, rate down to less than 100 at time of my visit. Potassium low, will replace and recheck. When better, will diurese more today. Continue PPI for GI prophylaxis, lovenox for VTE prophylaxis, PT/OT, aggressive pulmonary hygiene. 09/12/17: POD#4, POD#6. Doing well. GI function continues to improve. Will try regular diet today since she's passing flatus. Seems to be in NSR with good rate. BNP is down. Will continue to work on diuresis. Continue PPI for GI prophylaxis, lovenox for VTE prophylaxis, PT/OT, aggressive pulmonary hygiene. 09/13/17: POD#5, POD#7. She appears to have turned the corner. She diuresed yesterday after a single dose of lasix. Her effusion appears to be smaller both on CXR and confirmed by a bedside US. The loss in volume appears to be more due to atelectasis than effusion. Her WBC improved and I don't feel that a thoracentesis is required based on her current progress. Her large bm is encouraging for resolution of her ileus. Her lipase is inexplicably rising given that her exam is relatively benign and improving and the other labs are improving. Will continue to follow it. I will also continue to allow her to eat as this is the sole abnormality at the moment. Continue her care in the ICU at least through tomorrow. Increase participation with PT & activity. 09/14/17: POD #6, POD #8. Overall continued progress. Her lipase is again up but appears to be plateauing. Her other LFTs are all normal. I plan on continuing to follow and will continue to let her eat at this point. Her right lung aeration is improved and her effusion is responding appropriately without the need for drainage. I will transfer her to floor status and focus on getting her out of bed. I agree with the above surgical plan and I will repeat Lipase in am. I will also stop her Levaquin today and continue her Zosyn. I will review her home meds and start if necessary. 09/15: I will closely observe her abdominal issues specially Lipase levels and management as per surgery. She is off Levaquin and on Zosyn. I will change her Protonix to PO and decrease her IVF to 30ml/h 09/16: Lipase improved. (2) Hypokalemia Status: Acute Assessment & Plan: Resolved with supplementation. 09/14: I will replace with KCL and recheck her Mag, K and PO4 level in am 09/15: I will give her KCL 80meq total today and 2Gm of Mag.Sulphate IV today and recheck her K and Mg levels in am 09/16: Potassium and magnesium normal today. (3) Atrial fibrillation with RVR Status: Resolved Assessment & Plan: She did not have a prior history of A-fib, but did develop this postoperatively. An attempt was made at electrical cardioversion, but this was unsuccessful. She has continued to have intermittent atrial fibrillation and has been on/off a diltiazem infusion. She is not currently on anticoagulation, but would likely benefit from this at some point. 09/16: The patient remains in a regular rhythm today. (4) Pneumonia Status: Resolved Assessment & Plan: A chest x-ray on 09/11 did show a developing infiltrate in the right lung. She also had a fever and increasing WBC on that day. She had been on Zosyn, but levofloxacin was also added. Cultures have been negative. She remains on Zosyn. Levaquin has been completed. (5) Acute postoperative respiratory insufficiency Status: Resolved Assessment & Plan: She did return from surgery on mechanical ventilation. She was extubated successfully on 09/09. (6) Pleural effusion Status: Resolved Assessment & Plan: Most likely related to volume status and the bile leakage with a "sympathetic" effusion on the right. This has been improving with intermittent Lasix. (7) Low TSH level Status: Chronic Assessment & Plan: She does not appear to have a history of hypothyroidism. Her TSH is low, but she is acutely ill. A T4 is within normal range. Recommend repeat TSH in 4-6 weeks. Central Venous Access Medical Necessity for Access: IV Access, Medication Administration Time Spent on Plan of Care: < 30 min Exam Sepsis Risk: No Definite Risk Problem Qualifiers (1) Biloma following surgery: Encounter type: initial encounter Qualified Codes: T81.89XA - Other complications of procedures, not elsewhere classified, initial encounter; K66.8 - Other specified disorders of peritoneum NIKKI WOODALL MD Sep 16, 2017 19:40
[2017-09-16 20:20] VITALS: BP 160/76
[2017-09-16] MEDS: LORazepam 1 MG TAB PO PRN (21:23)
[2017-09-17 03:34] VITALS: BP 168/79
[2017-09-17] MEDS: PIPERACILLIN IVPB SCH ×2 (05:25→12:18)
[2017-09-17] MEDS: TAZO IVPB SCH ×2 (05:25→12:18)
[2017-09-17] MEDS: NS 0.9% IVPB SCH ×2 (05:25→12:18)
[2017-09-17 05:46] LABS: PLATELET COUNT, AUTOMATED 409 K/uL (150-450)
--- NOTE | 2017-09-17 07:18 | General Surgery Progress Note ---
Subjective Progress Notes Subjective No complaints. "A little" pain at TRAY drain site. Tolerating regular diet. Physical Exam Vital Signs Date Time Temp Pulse Resp B/P (MAP) Pulse Ox O2 Delivery O2 Flow Rate FiO2 09/17/17 03:34 97.4 75 16 168/79 (108) 92 Room Air 09/15/17 15:15 0.5 General Appearance: Alert, Awake, No Acute Distress, Afebrile GI: Other (Soft, mild TTP around TRAY drain site. TRAY with small amount of serous drainage.) Extremities: Warm, Perfused Result Diagram: 09/17/1752509/17/17525 Assessment and Plan Problems: (1) Biloma following surgery Status: Acute Assessment & Plan: Will admit, nothing by mouth, IV fluids, 2 OR for laparoscopy with evacuation of the perihepatic fluid, we'll look for any evidence of bleeding or bile leak, try to control it if possible, and place a drain. I have explained this plan including the procedure to the patient and her and they seem to be agreeable with proceeding with this plan. 09/09/17: POD#1 s/p exploratory laparoscopy with washout, clipping of leaking duct of Luschka in gallbladder fossa, and drain placement, POD#3 s/p lap onesimo. Remained intubated overnight since she was having respiratory issues preop. O/W has remained stable. Hospitalists working on controlling her RVR, may consider electrocardioversion and so will leave intubated until either she responds to diltiazem or until after electrocardioversion and she recovers from sedation. Hopeful for extubation later this morning. Continue ICU care today. 09/10/17: POD#2, POD#4. Doing better this morning. Back in NSR with good rate control. Vital signs look good. No evidence of continued bile leakage. Requiring 10L O2 by oxymask. Will check CXR, continue diuresis as she tolerates , aggressive pulmonary hygiene, will start ambulating her today, PT/OT. PPI for GI prophylaxis, lovenox for VTE prophylaxis. Continue bowel rest until she shows signs that her ileus is resolving. May need to place PICC line and start TPN if not able to eat over the next 2 days. Continue ICU care today. 09/11/17: POD#3, POD#5. Doing well, GI function improving, will try clear diet today. Will place PICC today to give meds and draw blood for labs since she is proving difficult to draw blood from. Back in a-fib with RVR but now trying to convert back to sinus this morning, rate down to less than 100 at time of my visit. Potassium low, will replace and recheck. When better, will diurese more today. Continue PPI for GI prophylaxis, lovenox for VTE prophylaxis, PT/OT, aggressive pulmonary hygiene. 09/12/17: POD#4, POD#6. Doing well. GI function continues to improve. Will try regular diet today since she's passing flatus. Seems to be in NSR with good rate. BNP is down. Will continue to work on diuresis. Continue PPI for GI prophylaxis, lovenox for VTE prophylaxis, PT/OT, aggressive pulmonary hygiene. 09/13/17: POD#5, POD#7. She appears to have turned the corner. She diuresed yesterday after a single dose of lasix. Her effusion appears to be smaller both on CXR and confirmed by a bedside US. The loss in volume appears to be more due to atelectasis than effusion. Her WBC improved and I don't feel that a thoracentesis is required based on her current progress. Her large bm is encouraging for resolution of her ileus. Her lipase is inexplicably rising given that her exam is relatively benign and improving and the other labs are improving. Will continue to follow it. I will also continue to allow her to eat as this is the sole abnormality at the moment. Continue her care in the ICU at least through tomorrow. Increase participation with PT & activity. 09/14/17: POD #6, POD #8. Overall continued progress. Her lipase is again up but appears to be plateauing. Her other LFTs are all normal. I plan on continuing to follow and will continue to let her eat at this point. He right lung aeration is improved and her effusion is responding appropriately without the need for drainage. I will transfer her to floor status and focus on getting her out of bed. 09/15/17: POD#7, 9. Lipase up a smaller increment today. Continue current course as she is clinically improving. Continue IV Abx. Recheck lipase tomorrow; this will have to be improving prior to d/c. Hypokalemia and hypomagnesemia being managed by IM. 09/16/17: POD#8, 10. Turned the corner. Lipase dropped in half, hypokalemia and hypomagnesemia resolved. Ileus resolved. Will work on stamina and assure she is safe to go home today with target for discharge tomorrow. 09/17/17: POD#9, 11. Doing well but lipase is a little up this morning. Will check MRCP today. O/W doing well. Hopeful for d/c to home in the next day or two. (2) Atrial fibrillation with RVR Status: Resolved Assessment & Plan: Back in a-fib but rate controlled and showing signs of trying to convert back to NSR. (3) S/P laparoscopic cholecystectomy Status: Acute Central Venous Access Medical Necessity for Access: IV Access, Medication Administration Condition Stable. Time Spent: < 30 min Exam Sepsis Risk: No Definite Risk Problem Qualifiers (1) Biloma following surgery: Encounter type: initial encounter Qualified Codes: T81.89XA - Other complications of procedures, not elsewhere classified, initial encounter; K66.8 - Other specified disorders of peritoneum SNOW ALVARADO MD Sep 17, 2017 07:18
[2017-09-17 07:56] VITALS: BP 144/75
[2017-09-17] MEDS ORDERED: KCL (*) 20 MEQ/100 ML PREMIX 100 ML IV ONE ×3 (08:50)
[2017-09-17] MEDS: amLODIPine BESYL(*) 5 MG TAB PO SCH ×2 (09:38→21:11)
[2017-09-17] MEDS: CHOLECALCIFEROL 1000 UNIT TAB PO SCH (09:38)
[2017-09-17] MEDS: CALCIUM CARBONATE/VITAMIN D3 PO SCH (09:38)
[2017-09-17] MEDS: PANTOPRAZOLE SOD 40 MG TABEC PO SCH (09:38)
[2017-09-17] MEDS: ENOXAPARIN 40 MG/0.4ML SYR SC SCH (09:39)
[2017-09-17] MEDS ORDERED: NS 0.9% IV ONE ×2 (10:00→10:05)
[2017-09-17] MEDS ORDERED: KCL IV ONE ×2 (10:00→10:05)
[2017-09-17] MEDS ORDERED: NS 0.9% 50 ML VIAL 50 ML ONE (11:57)
[2017-09-17] MEDS ORDERED: GADOBENATE 529MG/1ML 15ML VIAL IVP ONE (11:57)
[2017-09-17 11:58] VITALS: BP 144/66
--- NOTE | 2017-09-17 12:56 | Medical Nutrition Therapy ---
Nutrition Monitoring & Eval RD Patient Assessment Time: [address] Assessment Type: RD Re-Assessment Patient Nutrition Acuity: 2-Moderate Follow Up Date: Sep 19, 2017 Nutritional Comment: 09/09/17 Pt admitted for post op bile leak and resp insufficiency after cholecystectomy. Pt NPO due to intubation w/ propofol. Possibly extubating tomorrow per hospitalist note. Notable labs include Na 134, total pro 5.6, and alb 2.7. Will follow up as diet progresses. 09/10/17 Pt extubated but remains NPO. Continue bowel rest until showing signs of ileus resolving, per MD. May need TPN if not able to eat over next 2 days, per MD as well. I recommend PPN/TPN by tomorrow as pt has been NPO 3 days and admitted with poor appetite. Notable labs include low H/H, total pro 4.8, and alb 2.3. Will continue to follow up. 09/11 Diet advanced to clear liquid. alb 2.6. Will offer nutr supplment and put protein powder in appropriate foods. Will cont to monitor. 09/13 Diet progression to EDITH. Family bring in food for patient. Lipase 2613, Alb 2.3, High AST/ALT, Low Ca+. Follow intake, tolerance to diet, etc. 09/16 PO intake 50-100%. Alb 2.3, Low H/H, Amylase 279, Lipase 1454. Encourage intake. JOSEPH CHAUDHARI Sep 17, 2017 12:56
--- NOTE | 2017-09-17 14:58 | Hospitalist Progress Note ---
Subjective Progress Notes Subjective Mrs. Bryant is a 77-year-old female, postoperative day 2 from a laparoscopic cholecystectomy for cholecystitis, discharged to home yesterday, presents with worsening abdominal pain and shortness of breath as well as weakness that started last evening. She presented to the emergency room where her white count is mildly elevated, her transaminases and total bilirubin are mildly elevated, and CT scan is consistent with a biloma. She is being admitted and taken to surgery to address this. 09/14: She developed Acute Peritonitis and Pancreatitis. and currently on Levaquin and Zosyn. Today she is feeling better and tolerating diet. She denies any abdominal pain, N/V/D etc. 09/15: She is feeling better today and her appetite is better. She is tolerating the diet and denies any N/V/D/fever/abd. pain. Her Lipase and Amylase is still high and I have discussed with the surgeon and recommended to closely watch the levels. She is hemodynamically stable. Her K and Mg levels are low today. 09/17: She is feeling better but her Lipase has increased to 2582. She is scheduled to have MRCP by the surgery. She denies any complaint, tolerating the diet. She is ambulatory with walker Patient Complains of: Neurological: Weakness, No: Syncope, Confusion, Dizziness Cardiovascular: No: Chest Pain, Palpitations Respiratory: No: Cough, Congestion, Shortness of Breath Gastrointestinal: Bowel Movement, No Nausea, No Vomiting Genitourinary: No Dysuria, No Hematuria Musculoskeletal: Impaired Mobility, No: Pain, Sprain, Strain Physical Exam Vital Signs Date Time Temp Pulse Resp B/P (MAP) Pulse Ox O2 Delivery O2 Flow Rate FiO2 09/17/17 11:58 98.1 75 16 144/66 (92) 97 Room Air 09/15/17 15:15 0.5 Intake and Output 09/18/17 07:00 Intake Total 105 ml Balance 105 ml IV Total 105 ml # Voids 2 # Bowel Movements 1 General Appearance: Alert, Awake, No Acute Distress, Afebrile Neuro: No Gross deficits Eyes: PERRLA ENT: Normal Neck: No Masses Cardiovascular: Normal Rhythm & Peripheral Pulses Respiratory: No Respiratory Distress GI: Soft and Non-Tender (mild epigastric tenderness) Extremities: Soft and Non Tender Integumentary: Skin Intact without Lesion / Mass Psych: Alert & Oriented X3, Appropriate Mood & Affect Result Diagram: 09/17/1752509/17/17525 Assessment and Plan Problems: (1) Biloma following surgery Status: Acute Assessment & Plan: Will admit, nothing by mouth, IV fluids, 2 OR for laparoscopy with evacuation of the perihepatic fluid, we'll look for any evidence of bleeding or bile leak, try to control it if possible, and place a drain. I have explained this plan including the procedure to the patient and her and they seem to be agreeable with proceeding with this plan. 09/09/17: POD#1 s/p exploratory laparoscopy with washout, clipping of leaking duct of Luschka in gallbladder fossa, and drain placement, POD#3 s/p lap onesimo. Remained intubated overnight since she was having respiratory issues preop. O/W has remained stable. Hospitalists working on controlling her RVR, may consider electrocardioversion and so will leave intubated until either she responds to diltiazem or until after electrocardioversion and she recovers from sedation. Hopeful for extubation later this morning. Continue ICU care today. 09/10/17: POD#2, POD#4. Doing better this morning. Back in NSR with good rate control. Vital signs look good. No evidence of continued bile leakage. Requiring 10L O2 by oxymask. Will check CXR, continue diuresis as she tolerates , aggressive pulmonary hygiene, will start ambulating her today, PT/OT. PPI for GI prophylaxis, lovenox for VTE prophylaxis. Continue bowel rest until she shows signs that her ileus is resolving. May need to place PICC line and start TPN if not able to eat over the next 2 days. Continue ICU care today. 09/11/17: POD#3, POD#5. Doing well, GI function improving, will try clear diet today. Will place PICC today to give meds and draw blood for labs since she is proving difficult to draw blood from. Back in a-fib with RVR but now trying to convert back to sinus this morning, rate down to less than 100 at time of my visit. Potassium low, will replace and recheck. When better, will diurese more today. Continue PPI for GI prophylaxis, lovenox for VTE prophylaxis, PT/OT, aggressive pulmonary hygiene. 09/12/17: POD#4, POD#6. Doing well. GI function continues to improve. Will try regular diet today since she's passing flatus. Seems to be in NSR with good rate. BNP is down. Will continue to work on diuresis. Continue PPI for GI prophylaxis, lovenox for VTE prophylaxis, PT/OT, aggressive pulmonary hygiene. 09/13/17: POD#5, POD#7. She appears to have turned the corner. She diuresed yesterday after a single dose of lasix. Her effusion appears to be smaller both on CXR and confirmed by a bedside US. The loss in volume appears to be more due to atelectasis than effusion. Her WBC improved and I don't feel that a thoracentesis is required based on her current progress. Her large bm is encouraging for resolution of her ileus. Her lipase is inexplicably rising given that her exam is relatively benign and improving and the other labs are improving. Will continue to follow it. I will also continue to allow her to eat as this is the sole abnormality at the moment. Continue her care in the ICU at least through tomorrow. Increase participation with PT & activity. 09/14/17: POD #6, POD #8. Overall continued progress. Her lipase is again up but appears to be plateauing. Her other LFTs are all normal. I plan on continuing to follow and will continue to let her eat at this point. Her right lung aeration is improved and her effusion is responding appropriately without the need for drainage. I will transfer her to floor status and focus on getting her out of bed. I agree with the above surgical plan and I will repeat Lipase in am. I will also stop her Levaquin today and continue her Zosyn. I will review her home meds and start if necessary. 09/15: I will closely observe her abdominal issues specially Lipase levels and management as per surgery. She is off Levaquin and on Zosyn. I will change her Protonix to PO and decrease her IVF to 30ml/h 09/16: Lipase improved. 09/17: Her Lipase went high again and she was seen by the surgery and scheduled to have MRCP today to r/o obstruction due to stone. I will continue her current management. (2) Hypokalemia Status: Acute Assessment & Plan: Resolved with supplementation. 09/14: I will replace with KCL and recheck her Mag, K and PO4 level in am 09/15: I will give her KCL 80meq total today and 2Gm of Mag.Sulphate IV today and recheck her K and Mg levels in am 09/16: Potassium and magnesium normal today. 09/17: Her K level is 3.3 today and I will give her 60meq KCL today. I will get mag level and repeat her labs in am (3) Atrial fibrillation with RVR Status: Resolved Assessment & Plan: She did not have a prior history of A-fib, but did develop this postoperatively. An attempt was made at electrical cardioversion, but this was unsuccessful. She has continued to have intermittent atrial fibrillation and has been on/off a diltiazem infusion. She is not currently on anticoagulation, but would likely benefit from this at some point. 09/16: The patient remains in a regular rhythm today. (4) Pneumonia Status: Resolved Assessment & Plan: A chest x-ray on 09/11 did show a developing infiltrate in the right lung. She also had a fever and increasing WBC on that day. She had been on Zosyn, but levofloxacin was also added. Cultures have been negative. She remains on Zosyn. Levaquin has been completed. (5) Acute postoperative respiratory insufficiency Status: Resolved Assessment & Plan: She did return from surgery on mechanical ventilation. She was extubated successfully on 09/09. (6) Pleural effusion Status: Resolved Assessment & Plan: Most likely related to volume status and the bile leakage with a "sympathetic" effusion on the right. This has been improving with intermittent Lasix. (7) Low TSH level Status: Chronic Assessment & Plan: She does not appear to have a history of hypothyroidism. Her TSH is low, but she is acutely ill. A T4 is within normal range. Recommend repeat TSH in 4-6 weeks. Central Venous Access Medical Necessity for Access: IV Access, Medication Administration Time Spent on Plan of Care: < 30 min Copies to: KATRINA WINTERS MD Exam Sepsis Risk: No Definite Risk Problem Qualifiers (1) Biloma following surgery: Encounter type: initial encounter Qualified Codes: T81.89XA - Other complications of procedures, not elsewhere classified, initial encounter; K66.8 - Other specified disorders of peritoneum ALLEN CAMARILLO MD Sep 17, 2017 14:58
[2017-09-17 15:04] VITALS: BP 144/88
--- NOTE | 2017-09-17 15:37 | RADIOLOGY IMAGING REPORT ---
FACILITY: [facility] PATIENT NAME: Meenakshi De La Garza : 1940 MR: [id number] V: [id number] EXAM DATE: ORDERING PHYSICIAN: SNOW ALVARADO TECHNOLOGIST: Location: [facility] [place] Patient: Meenakshi De La Garza : 1940 Visit/Account:[id number] Date of Sevice: 09/17/2017 EXAMINATION: Abdominal MRI/MRCP without and with IV contrast HISTORY: Elevated lipase. Recent cholecystectomy. Technique: Multiplanar, multisequence MR images of the abdomen were obtained without and with IV cont rast, including dedicated MRCP sequences. Contrast: 10 mL of IV Multihance. COMPARISON: CT abdomen/pelvis with contrast 09/08/2017. FINDINGS: Image quality is partially degraded by respiratory motion artifact. Hepatobiliary: Normal hepatic size and morphology. No parenchymal liver mass. The hepatic veins and p ortal veins are patent. The gallbladder is surgically absent. The bile ducts are normal in caliber and unremarkable on MRCP s equences. No ductal dilatation or suspicious intraductal filling defect. The common bile duct measure s 6 mm and tapers inferiorly at the ampulla. The patient has undergone interval surgery since the liliana or CT. A new percutaneous surgical drain is in place, extending along the inferior margin of the righ t hepatic lobe. No significant residual perihepatic fluid collection. Spleen: Negative. Pancreas: Negative. Adrenal glands: Negative. Kidneys: Small bilateral renal cysts. No hydronephrosis. Bowel and peritoneum: Visualized segments of the small bowel and colon are normal in caliber. No abd ominal ascites. Lymph node assessment: Negative. Vessels: Negative. Musculoskeletal: Negative. Body wall: Negative. Lung bases: Small bilateral layering pleural effusions, with bibasilar atelectasis. IMPRESSION: 1. Surgical changes of cholecystectomy. 2. Bile ducts are unremarkable on MRCP sequences. No ductal dilatation or suspicious intraductal fill ing defect. 3. New surgical drain along the inferior margin of the right hepatic lobe. No significant residual pe rihepatic fluid collection. Report Dictated By: Sánchez Manzo MD at 09/17/2017 3:19 PM Report E-Signed By: Sánchez Manzo MD at 09/17/2017 3:32 PM [id number]
[2017-09-17] MEDS: KCL/D1/2NS 20 MEQ 1000 ML 1,000 ML IV SCH (18:29)
[2017-09-17] MEDS: ACETAMINOPHEN 325 MG TAB PO PRN (19:49)
[2017-09-17 19:50] VITALS: BP 151/78
[2017-09-17] MEDS: LORazepam 1 MG TAB PO PRN (21:14)
[2017-09-17 23:20] VITALS: BP 120/65
[2017-09-18 04:29] VITALS: BP 141/73
[2017-09-18 06:08] LABS: PLATELET COUNT, AUTOMATED 471 K/uL (150-450)
[2017-09-18 07:23] VITALS: BP 137/76
[2017-09-18] MEDS ORDERED: POTA8TAB45 PO (07:31)
--- NOTE | 2017-09-18 07:35 | Short(Outpt) Discharge Summary ---
Discharge Summary Reason for Hosp/Final Diag: (1) Biloma following surgery Status: Acute Hospital Course & Plan: Will admit, nothing by mouth, IV fluids, 2 OR for laparoscopy with evacuation of the perihepatic fluid, we'll look for any evidence of bleeding or bile leak, try to control it if possible, and place a drain. I have explained this plan including the procedure to the patient and her and they seem to be agreeable with proceeding with this plan. 09/09/17: POD#1 s/p exploratory laparoscopy with washout, clipping of leaking duct of Luschka in gallbladder fossa, and drain placement, POD#3 s/p lap onesimo. Remained intubated overnight since she was having respiratory issues preop. O/W has remained stable. Hospitalists working on controlling her RVR, may consider electrocardioversion and so will leave intubated until either she responds to diltiazem or until after electrocardioversion and she recovers from sedation. Hopeful for extubation later this morning. Continue ICU care today. 09/10/17: POD#2, POD#4. Doing better this morning. Back in NSR with good rate control. Vital signs look good. No evidence of continued bile leakage. Requiring 10L O2 by oxymask. Will check CXR, continue diuresis as she tolerates , aggressive pulmonary hygiene, will start ambulating her today, PT/OT. PPI for GI prophylaxis, lovenox for VTE prophylaxis. Continue bowel rest until she shows signs that her ileus is resolving. May need to place PICC line and start TPN if not able to eat over the next 2 days. Continue ICU care today. 09/11/17: POD#3, POD#5. Doing well, GI function improving, will try clear diet today. Will place PICC today to give meds and draw blood for labs since she is proving difficult to draw blood from. Back in a-fib with RVR but now trying to convert back to sinus this morning, rate down to less than 100 at time of my visit. Potassium low, will replace and recheck. When better, will diurese more today. Continue PPI for GI prophylaxis, lovenox for VTE prophylaxis, PT/OT, aggressive pulmonary hygiene. 09/12/17: POD#4, POD#6. Doing well. GI function continues to improve. Will try regular diet today since she's passing flatus. Seems to be in NSR with good rate. BNP is down. Will continue to work on diuresis. Continue PPI for GI prophylaxis, lovenox for VTE prophylaxis, PT/OT, aggressive pulmonary hygiene. 09/13/17: POD#5, POD#7. She appears to have turned the corner. She diuresed yesterday after a single dose of lasix. Her effusion appears to be smaller both on CXR and confirmed by a bedside US. The loss in volume appears to be more due to atelectasis than effusion. Her WBC improved and I don't feel that a thoracentesis is required based on her current progress. Her large bm is encouraging for resolution of her ileus. Her lipase is inexplicably rising given that her exam is relatively benign and improving and the other labs are improving. Will continue to follow it. I will also continue to allow her to eat as this is the sole abnormality at the moment. Continue her care in the ICU at least through tomorrow. Increase participation with PT & activity. 09/14/17: POD #6, POD #8. Overall continued progress. Her lipase is again up but appears to be plateauing. Her other LFTs are all normal. I plan on continuing to follow and will continue to let her eat at this point. He right lung aeration is improved and her effusion is responding appropriately without the need for drainage. I will transfer her to floor status and focus on getting her out of bed. 09/15/17: POD#7, 9. Lipase up a smaller increment today. Continue current course as she is clinically improving. Continue IV Abx. Recheck lipase tomorrow; this will have to be improving prior to d/c. Hypokalemia and hypomagnesemia being managed by IM. 09/16/17: POD#8, 10. Turned the corner. Lipase dropped in half, hypokalemia and hypomagnesemia resolved. Ileus resolved. Will work on stamina and assure she is safe to go home today with target for discharge tomorrow. 09/17/17: POD#9, 11. Doing well but lipase is a little up this morning. Will check MRCP today. O/W doing well. Hopeful for d/c to home in the next day or two. 09/18/17: POD#10, 12. Doing well. Lipase down a little but still elevated. She is otherwise doing very well clinically with minimal postop abdominal pain. MRCP was unremarkable, no evidence of pancreatitis, fluid collections, bile duct or pancreatic duct abnormalities. Will d/c to home today with f/u as scheduled next week. (2) Atrial fibrillation with RVR Status: Resolved Hospital Course & Plan: Back in a-fib but rate controlled and showing signs of trying to convert back to NSR. (3) S/P laparoscopic cholecystectomy Status: Chronic Departure Discharge to: Home, Self Care Discharge Instructions Home Meds Active Scripts Potassium Chloride (POTASSIUM CHLORIDE) 8 Meq Tablet.er, 1 TAB PO QDAY, #60 TAB 6 Refills Prov:SNOW ALVARADO MD 09/18/17 Docusate Sodium (COLACE) 100 Mg Capsule, 1 CAP PO BID, #30 CAP 0 Refills TAKE WITH A FULL GLASS OF WATER Prov:SNOW ALVARADO MD 09/06/17 Trazodone Hcl (TRAZODONE HCL) 50 Mg Tablet, 50 MG PO QHS Y for insomnia, #90 TAB 2 Refills Prov:KATRINA WINTERS MD 03/31/17 Ranitidine Hcl (RANITIDINE HCL) 300 Mg Tablet, 300 MG PO QDAY, #90 TAB 1 Refill Prov:KATRINA WINTERS MD 03/17/17 Allopurinol (ALLOPURINOL) 100 Mg Tablet, 2 TAB PO QDAY, #180 TAB 4 Refills Prov:KATRINA WINTERS MD 11/27/16 Reported Medications Evolocumab (Repatha Syringe) 140 Mg/Ml Syringe, 140 MG SQ Q2WK 09/06/17 Amlodipine Besylate (AMLODIPINE BESYLATE) 5 Mg Tablet, 1 TAB PO BID, TAB 09/06/17 Aspirin (Children's Aspirin) 81 Mg Tab.chew, 1 TAB PO QDAY, #100 TAB.CHEW 4 Refills 03/29/15 Cholecalciferol (Vitamin D3) (VITAMIN D3) 1,000 Unit Tablet, 2 TAB PO QDAY 10/10/14 Calcium Carbonate/Vitamin D3 (CALCIUM 500 + D TABLET) 1 Each Tablet, 1 TAB PO QDAY 10/10/14 Mu-Vits-Min Th/Lycopene/Lutein (CENTRUM SILVER TABLET) 1 Each Tablet, 1 TAB PO QDAY 10/10/14 Follow up Referrals: General Surgery - 09/24/17 @ Surgery, General with Snow Alvarado Md You have a follow up appointment scheduled with Dr. Alvarado on 09/24/17, at 1: 30pm. Please have your blood drawn for labs on Friday afternoon (09/23/17) so the results are available to review with you at your appointment. Diet: Regular Activity: As Tolerated Problem Qualifiers (1) Biloma following surgery: Encounter type: initial encounter Qualified Codes: T81.89XA - Other complications of procedures, not elsewhere classified, initial encounter; K66.8 - Other specified disorders of peritoneum SNOW ALVARADO MD Sep 18, 2017 07:35
[2017-09-18] MEDS: ENOXAPARIN 40 MG/0.4ML SYR SC SCH (08:42)
[2017-09-18] MEDS: CALCIUM CARBONATE/VITAMIN D3 PO SCH (08:42)
[2017-09-18] MEDS: amLODIPine BESYL(*) 5 MG TAB PO SCH (08:42)
[2017-09-18] MEDS: PANTOPRAZOLE SOD 40 MG TABEC PO SCH (08:42)
[2017-09-18] MEDS: CHOLECALCIFEROL 1000 UNIT TAB PO SCH (08:42)
[2017-10-03] MEDS ORDERED: LOR1 PO (12:38)
--- NOTE | 2017-10-08 08:38 | OPERATIVE REPORT 1 ---
EVENT DATE: September 08, 2017 SURGEON: James Onofre MD ANESTHESIOLOGIST: All Barnes MD ANESTHESIA: General endotracheal PREOPERATIVE DIAGNOSIS Postoperative bile leak with biloma. POSTOPERATIVE DIAGNOSIS Postoperative bile leak with biloma. PROCEDURE PERFORMED Exploratory laparoscopy with control of bile leak, abdominal wash out and drain placement. COMPLICATIONS None. CONDITION Stable. BLOOD LOSS Minimal. FINDINGS Patient had a leaking duct in the gallbladder fossa, likely a duct of Luschka. SPECIMENS None. INDICATIONS This is a 77-year-old female who is postoperative day 2 from a laparoscopic cholecystectomy for acute cholecystitis. She remained in the hospital overnight and was discharged yesterday, feeling well with good vital signs and no signs of any problems. She reported last night, about 24 hours ago, she started to feel poorly, and this has progressed, until today she came into the emergency department, and she was found to have mildly elevated transaminases and bilirubin, and a CT scan revealed a lot of fluid around her liver, and the fluid's density was consistent with bile. She and her provided consent for exploratory laparoscopy with washout of her abdomen and drain placement. PROCEDURE The patient was brought into the operating room, placed supine on the operating table. General endotracheal anesthesia was administered, and her abdomen was prepped and draped in sterile fashion. Time out was completed, and I used an 11 blade and opened up the previous 3 of 4 incisions, namely the larger incision at the umbilicus, and the two right upper quadrant incisions. I removed the sutures that were placed at the surgery two days ago, and then I placed two interrupted #0-Vicryl sutures, one cephalad and one caudad through the fascia at the umbilicus, inserted a 12 mm Rick type port through this wound, and secured it into place with the sutures. I insufflated the abdomen to a pressure of 15 mmHg and inserted a 5 mm 30 degree angled scope through this port. There was quite a lot of loose early adhesions and bile when I first got in, but as I was able to bluntly take these down with the camera, the abdominal space opened up, and I was able to put two 5 mm ports in the previously made incisions in the right upper quadrant. I then suctioned out all of the bile and irrigated copiously with several liters of normal saline and was able to peel the duodenum down away from the gallbladder fossa and ultimately inspect the fossa as well as the cystic duct and artery stumps. The cystic duct and artery stumps looked good, and the clips were in place, and there was no bile leak coming from here. However, as I inspected the gallbladder fossa, I could see bile leaking from what looked like a side hole in a tiny duct in the base of the gallbladder fossa. I was able to use clips on this proximally and distally, and at the end of this, there was no bile leak. I continued to irrigate and dry the right upper quadrant, and I made sure I removed all of my irrigation fluid, and then I placed a 10 mm flat Abdifatah-Tang drain coming out through the superolateral 5 mm port, and I ran it into Varela's pouch and had it come out by the gallbladder fossa, so if there are any continued bile leaks, that it would come out in the drain. I did scrape out a lot of the rind from the liver as well as the peritoneum in the right upper quadrant. When this was all completed, I removed the remaining 5 mm port and the umbilical port and desufflated the abdomen, and then I closed the midline fascia with a running #0-Vicryl suture between the first two sutures , and then tied all three of these down with good reapproximation of the fascial edges and no remaining fascial defect. I placed 4-0 Monocryl subcuticular sutures through each of the two remaining incisions, and I sewed the drain in with an #0-silk suture. Her abdomen was cleaned and dried, and Steri-Strips were applied to the three non-drain incisions followed by sterile surgical dressings, and then the drain was dressed with a drain dressing. The patient was then transported to the ICU still intubated on the mechanical ventilator, because she was already having issues breathing with tachypnea and hypoxia before surgery, and given the current time it was felt keeping her intubated and resting tonight with plans for extubation in the morning would be in her best interest. She otherwise tolerated her procedure without any apparent problems. THEA
[2017-10-10] MEDS ORDERED: POTA20TA94 PO (12:15)
== END 2017-09-18 10:30 | disposition home health service (06) | DRG 981 ==
LOC: ER 16:31 → OR 19:12 → ICU 21:40 → MED 09-14 20:15
PROVIDERS: ADMIT Surgery; ATTEND Surgery
PROC: 5A1945Z Respiratory Ventilation, 24-96 Consecutive Hours (ICD-10-PCS; 2017-09-08)
PROC: 0FQ Hepatobiliary System and Pancreas, Repair (ICD-10-PCS; 2017-09-08)
PROC: 3E1M38Z Irrigation of Peritoneal Cavity using Irrigating Substance, Percutaneous Approach (ICD-10-PCS; 2017-09-08)
PROC: 5A2204Z Restoration of Cardiac Rhythm, Single (ICD-10-PCS; 2017-09-09)
PROC: 02HV33Z Insertion of Infusion Device into Superior Vena Cava, Percutaneous Approach (ICD-10-PCS; principal; 2017-09-10)
PROC: B548ZZA Ultrasonography of Superior Vena Cava, Guidance (ICD-10-PCS; 2017-09-10)
DX: K91.89 Other postprocedural complications and disorders of digestive system (principal); K83.2 Perforation of bile duct; J18.9 Pneumonia, unspecified organism; K65.9 Peritonitis, unspecified; K85.10 Biliary acute pancreatitis without necrosis or infection; J90 Pleural effusion, not elsewhere classified; I48.0 Paroxysmal atrial fibrillation; E87.6 Hypokalemia; K21.9 Gastro-esophageal reflux disease without esophagitis; I10 Essential (primary) hypertension; M81.0 Age-related osteoporosis without current pathological fracture; E78.00 Pure hypercholesterolemia, unspecified; R06.89 Other abnormalities of breathing; E87.70 Fluid overload, unspecified; Y83.8 Other surgical procedures as the cause of abnormal reaction of the patient, or of later complication, without mention of misadventure at the time of the procedure; Y73.3 Surgical instruments, materials and gastroenterology and urology devices (including sutures) associated with adverse incidents; Z88.8 Allergy status to other drugs, medicaments and biological substances; Z88.1 Allergy status to other antibiotic agents; Z90.49 Acquired absence of other specified parts of digestive tract; Z90.710 Acquired absence of both cervix and uterus
CPT/HCPCS: 36415; 36569; 36600; 71010; 71020; 71275; 74177; 74183; 74300; 76705; 76937; 80162; 81001; 82040; 82150; 82247; 82248; 82310; 82374; 82435; 82565; 82800; 82803; 82947; 83605; 83690; 83735; 83880; 84075; 84100; 84132; 84155; 84295; 84439; 84443; 84450; 84460; 84484; 84520; 85014; 85018; 85025; 85379; 87040; 87088; 88304; 93005; 93306; 94002; 94003; 94640; 94660; 96361; 96365; 96367; 96374; 96375; 96376; 97162; 97166; 99285; A9577; C1751; C1758; C9113; G0378; J0131; J0330; J1100; J1160; J1170; J1650; J1940; J1956; J2001; J2060; J2250; J2270; J2370; J2405; J2543; J2704; J2795; J2997; J3010; J3475; J3480; J3490; J7030; J7040; J7050; J7613; Q9967

== ENCOUNTER 2017-09-19 19:18 | Inpatient (IN) | payer MEDICARE ==
[~2017-09-19] VITALS: Ht 162.6 cm; Wt 50.2 kg
[~2017-09-19 19:18] MED LIST changes: +POTA8TAB45 PO
--- NOTE | 2017-09-19 19:33 | ER Report ---
History and Physical Time Seen By MD: 19:32 Hx. of Stated Complaint: Pt has high pulse. HPI/ROS CHIEF COMPLAINT: Rapid heart rate HISTORY OF PRESENT ILLNESS: Rapid heart rate 1st noticed around 6 PM denies chest pain shortness of breath syncope presyncope lightheadedness dizziness diaphoresis or other concerns. Past medical history includes A. fib with rapid ventricular rate she received cardioversion here in the ICU about a week ago by Dr. Corrales she has not yet been referred for an ablation. She is on Repatha subcutaneous self injections on 40 mg every 14 days for hyperlipidemia she saw a crusher tender at [facility] to apply for this new drug. I'm started after her cholecystectomy allocated by bile leak August 2016. She also suffers from GERD. REVIEW OF SYSTEMS: Constitutional: No fever, no chills. Eyes: No discharge. ENT: No sore throat. Cardiovascular: No chest pain, no palpitations. Respiratory: No cough, no shortness of breath. Gastrointestinal: No abdominal pain, no vomiting. Genitourinary: No hematuria. Musculoskeletal: No back pain. Skin: No rashes. Neurological: No headache. Allergies: Coded Allergies: erythromycin base (Verified Allergy, Mild, epigastric pain, 09/06/17) atorvastatin (Verified Adverse Reaction, Intermediate, muscle pain in legs., 09/06/17) WILBERTO Inhibitors (Verified Adverse Reaction, Mild, cough, 09/06/17) NSAIDS (Non-Steroidal Anti-Inflamma (Unverified Adverse Reaction, Mild, upset stomach, 09/06/17) valsartan (Verified Adverse Reaction, Unknown, ineffective, 09/06/17) Home Meds Active Scripts Potassium Chloride (POTASSIUM CHLORIDE) 8 Meq Tablet.er, 1 TAB PO QDAY, #60 TAB 6 Refills Prov:SNOW ALVARADO MD 09/18/17 Docusate Sodium (COLACE) 100 Mg Capsule, 1 CAP PO BID, #30 CAP 0 Refills TAKE WITH A FULL GLASS OF WATER Prov:SNOW ALVARADO MD 09/06/17 Trazodone Hcl (TRAZODONE HCL) 50 Mg Tablet, 50 MG PO QHS Y for insomnia, #90 TAB 2 Refills Prov:KATRINA WINTERS MD 03/31/17 Ranitidine Hcl (RANITIDINE HCL) 300 Mg Tablet, 300 MG PO QDAY, #90 TAB 1 Refill Prov:KATRINA WINTERS MD 03/17/17 Allopurinol (ALLOPURINOL) 100 Mg Tablet, 2 TAB PO QDAY, #180 TAB 4 Refills Prov:KATRINA WINTERS MD 11/27/16 Reported Medications Evolocumab (Repatha Syringe) 140 Mg/Ml Syringe, 140 MG SQ Q2WK 09/06/17 Amlodipine Besylate (AMLODIPINE BESYLATE) 5 Mg Tablet, 1 TAB PO BID, TAB 09/06/17 Aspirin (Children's Aspirin) 81 Mg Tab.chew, 1 TAB PO QDAY, #100 TAB.CHEW 4 Refills 03/29/15 Cholecalciferol (Vitamin D3) (VITAMIN D3) 1,000 Unit Tablet, 2 TAB PO QDAY 10/10/14 Calcium Carbonate/Vitamin D3 (CALCIUM 500 + D TABLET) 1 Each Tablet, 1 TAB PO QDAY 10/10/14 Mu-Vits-Min Th/Lycopene/Lutein (CENTRUM SILVER TABLET) 1 Each Tablet, 1 TAB PO QDAY 10/10/14 Hx Smoking: No Smoking Status: Never Smoker Exposure to Second Hand Smoke?: No Hx Substance Use Disorder: No Hx Alcohol Use: No Constitutional Vital Sign - Last 24 Hours 09/19/17 19:24 Temp 99.3 Pulse 141 Resp 16 B/P (MAP) 147/88 Pulse Ox 93 O2 Delivery Room Air Physical Exam General Appearance: The patient is alert, has no immediate need for airway protection and no signs of toxicity. No diaphoresis Eyes: Pupils equal and round no pallor or injection. ENT, Mouth: Mucous membranes are moist. Respiratory: There are no retractions, lungs are clear to auscultation. Cardiovascular: Irregularly irregular weakened pulses peripherally no murmurs gallops or rubs Gastrointestinal: Abdomen is soft and non tender, no masses, bowel sounds normal. Neurological: Grossly intact awake and talking and O 4 Skin: Warm and dry, no rashes. Musculoskeletal: Neck is supple non tender. Extremities are nontender, nonswollen and have full range of motion. No edema appreciated DIFFERENTIAL DIAGNOSIS: After history and physical exam differential diagnosis was considered for atrial fibrillation with rapid ventricular response compensating well. Possible underlying etiologies include dehydration infection etc. no signs of sepsis. Medical Decision Making Data Points Result Diagram: 09/19/17201909/19/172019 Laboratory Hematology Test 09/19/17 20:20 Red Blood Count 3.44 M/uL (4.17-5.56) Mean Corpuscular Volume 85.2 fL (80.0-96.0) Mean Corpuscular Hemoglobin 29.3 pg (26.0-33.0) Mean Corpuscular Hemoglobin Concent 34.4 g/dL (32.0-36.0) Red Cell Distribution Width 14.1 % (11.5-14.5) Mean Platelet Volume 6.4 fL (7.2-11.1) Neutrophils (%) (Auto) 73.1 % (39.4-72.5) Lymphocytes (%) (Auto) 15.3 % (17.6-49.6) Monocytes (%) (Auto) 8.9 % (4.1-12.4) Eosinophils (%) (Auto) 1.5 % (0.4-6.7) Basophils (%) (Auto) 1.2 % (0.3-1.4) Nucleated RBC Relative Count (auto) 0.0 /100WBC Neutrophils # (Auto) 7.6 K/uL (2.0-7.4) Lymphocytes # (Auto) 1.6 K/uL (1.3-3.6) Monocytes # (Auto) 0.9 K/uL (0.3-1.0) Eosinophils # (Auto) 0.2 K/uL (0.0-0.5) Basophils # (Auto) 0.1 K/uL (0.0-0.1) Nucleated RBC Absolute Count (auto) 0.00 K/uL Peripheral Blood Smear Yes Y/N Sodium Level 142 mmol/L (137-145) Potassium Level 3.2 mmol/L (3.5-5.0) Chloride Level 105 mmol/L (98-107) Carbon Dioxide Level 27 mmol/L (22-31) Blood Urea Nitrogen 14 mg/dl (7-18) Creatinine 0.70 mg/dl (0.52-1.04) Glomerular Filtration Rate Calc > 60.0 Random Glucose 113 mg/dl (75-110) Calcium Level 8.9 mg/dl (8.4-10.2) Total Bilirubin 0.5 mg/dl (0.2-1.3) Aspartate Amino Transf (AST/SGOT) 35 U/L (0-35) Alanine Aminotransferase (ALT/SGPT) 51 U/L (0-56) Alkaline Phosphatase 164 U/L (0-126) Troponin I < 0.012 ng/ml B-Type Natriuretic Peptide 62 pg/ml (0-100) Total Protein 6.5 gm/dl (6.3-8.2) Albumin 3.1 g/dl (3.5-5.0) Chemistry Test 09/19/17 20:20 White Blood Count 10.4 k/uL (4.5-11.0) Red Blood Count 3.44 M/uL (4.17-5.56) Hemoglobin 10.1 g/dL (12.0-16.0) Hematocrit 29.3 % (34.0-47.0) Mean Corpuscular Volume 85.2 fL (80.0-96.0) Mean Corpuscular Hemoglobin 29.3 pg (26.0-33.0) Mean Corpuscular Hemoglobin Concent 34.4 g/dL (32.0-36.0) Red Cell Distribution Width 14.1 % (11.5-14.5) Platelet Count 581 K/uL (150-450) Mean Platelet Volume 6.4 fL (7.2-11.1) Neutrophils (%) (Auto) 73.1 % (39.4-72.5) Lymphocytes (%) (Auto) 15.3 % (17.6-49.6) Monocytes (%) (Auto) 8.9 % (4.1-12.4) Eosinophils (%) (Auto) 1.5 % (0.4-6.7) Basophils (%) (Auto) 1.2 % (0.3-1.4) Nucleated RBC Relative Count (auto) 0.0 /100WBC Neutrophils # (Auto) 7.6 K/uL (2.0-7.4) Lymphocytes # (Auto) 1.6 K/uL (1.3-3.6) Monocytes # (Auto) 0.9 K/uL (0.3-1.0) Eosinophils # (Auto) 0.2 K/uL (0.0-0.5) Basophils # (Auto) 0.1 K/uL (0.0-0.1) Nucleated RBC Absolute Count (auto) 0.00 K/uL Peripheral Blood Smear Yes Y/N Glomerular Filtration Rate Calc > 60.0 Calcium Level 8.9 mg/dl (8.4-10.2) Total Bilirubin 0.5 mg/dl (0.2-1.3) Aspartate Amino Transf (AST/SGOT) 35 U/L (0-35) Alanine Aminotransferase (ALT/SGPT) 51 U/L (0-56) Alkaline Phosphatase 164 U/L (0-126) Troponin I < 0.012 ng/ml B-Type Natriuretic Peptide 62 pg/ml (0-100) Total Protein 6.5 gm/dl (6.3-8.2) Albumin 3.1 g/dl (3.5-5.0) EKG/Imaging EKG Interpretation A. fib with RVR variable rate Monitor Interpretation: Atrial Fibrillation (with RVR, variable rate) ED Course/Re-evaluation ED Course 09/19/2017 7:51:07 pm verbal consent given for chemical cardioversion with diltiazem as patient appears to be stable. Blood pressure at home was 134/89 despite her high heart rate. Pressures here are stable. Patient requested drug interaction checking with amlodipine which is a risk rating of C: Monitor therapy. This was related to the patient. Her is with her in the emergency department. 09/19/2017 9:41:31 pm hospitalist was consulted for admission Dr. Pedro Juarez excepting patient to monitored bed. Diltiazem drip increased to 10 mg per hour Decision to Disposition Date: Sep 19, 2017 Decision to Disposition Time: 21:42 Depart Departure Latest Vital Signs Vital Signs Date Time Temp Pulse Resp B/P (MAP) Pulse Ox O2 Delivery O2 Flow Rate FiO2 09/19/17 19:24 99.3 141 16 147/88 93 Room Air Impression: Primary Impression: Atrial fibrillation with rapid ventricular response Condition: Improved Disposition: Admitted from ER Referrals: KATRINA WINTERS MD (PCP) WALTER CONRAD MD Sep 19, 2017 19:33
[2017-09-19] MEDS ORDERED: DILTIAZEM 5 MG/ML 5ML IVPUSH IVP ONE (19:45)
[2017-09-19] MEDS: DILTIAZEM HCL* 100 MG ADDVIAL 100 MG in NS(*) 0.9% 100 ML ADDVANT BAG 100 ML IV SCH (19:45)
[2017-09-19] MEDS ORDERED: NS(*) 0.9% 1000 ML BAG 1,000 ML IV ONE (20:00)
[2017-09-19 20:29] LABS: PLATELET COUNT, AUTOMATED 581 K/uL (150-450)
--- NOTE | 2017-09-19 21:33 | RADIOLOGY IMAGING REPORT ---
FACILITY: [facility] - [place] PATIENT NAME: Meenakshi De La Garza : 1940 MR: [id number] V: [id number] EXAM DATE: ORDERING PHYSICIAN: WALTER CONRAD TECHNOLOGIST: Location: [facility] [place] Patient: Meenakshi De La Garza : 1940 Visit/Account:[id number] Date of Sevice: 09/19/2017 CHEST SINGLE AP History: Wheezing, dyspnea. Comparison 09/14/2017. FINDINGS: Improving aeration of the right lung base with decreasing pleural effusion. No new infiltrates. Mild cardiomegaly and mediastinal contour stable. PICC line has been removed. IMPRESSION: Improving aeration of the right lung base and decreasing right pleural effusion. No new infiltrates. Report Dictated By: Dony Nguyen MD at 09/19/2017 9:28 PM Report E-Signed By: Dony Nguyen MD at 09/19/2017 9:29 PM [id number]
[2017-09-19 22:55] VITALS: BP 133/78
--- NOTE | 2017-09-20 00:03 | History & Physical ---
History of Present Illness Chief Complaint Rapid Heart Beats History of Present Illness Mrs. De La Garza is a 77 y.o. female with PMH of HTN, Dyslipidemia, Gout, GERD who was recently d/c'd from [facility] after having a long complicated course after having Lap. Bing complicated by Biloma requiring ICU course with multiple antibiotics. She also had high Lipase level but her MRCP was negative for stone. She developed A.fib during last hospitalization and she required beta paula and she converted to sinus rhythm. She was not d/c'd on any Beta Palua or Cardizem but she was on Amlodipine. She presented today to the ER with rapid heart beats. She 1st noticed around 6 PM and she denied any chest pain, shortness of breath, syncope, presyncope, lightheadedness, dizziness, diaphoresis or other concerns. Past medical history includes A. fib with rapid ventricular rate and she received cardioversion here in the ICU about a week ago by Dr. Corrales she has not yet been referred for an ablation. She was on Repatha subcutaneous self injections on 40 mg every 14 days for hyperlipidemia. Blood pressure at home was 134/89 despite her high heart rate. Pressures here are stable. She received medical cardioversion in the ER but her VR remained high in the range of 130's. I discussed the case with the ER-MD and admitted her for further evaluation and management. She is comfortable and without any complaint and wants to sleep. History Home Meds Active Scripts Potassium Chloride (POTASSIUM CHLORIDE) 8 Meq Tablet.er, 1 TAB PO QDAY, #60 TAB 6 Refills Prov:SNOW ALVARADO MD 09/18/17 Trazodone Hcl (TRAZODONE HCL) 50 Mg Tablet, 50 MG PO QHS Y for insomnia, #90 TAB 2 Refills Prov:KATRINA WINTERS MD 03/31/17 Ranitidine Hcl (RANITIDINE HCL) 300 Mg Tablet, 300 MG PO QDAY, #90 TAB 1 Refill Prov:KATRINA WINTERS MD 03/17/17 Allopurinol (ALLOPURINOL) 100 Mg Tablet, 2 TAB PO QDAY, #180 TAB 4 Refills Prov:KATRINA WINTERS MD 11/27/16 Reported Medications Evolocumab (Repatha Syringe) 140 Mg/Ml Syringe, 140 MG SQ Q2WK 09/06/17 Amlodipine Besylate (AMLODIPINE BESYLATE) 5 Mg Tablet, 1 TAB PO BID, TAB 09/06/17 Aspirin (Children's Aspirin) 81 Mg Tab.chew, 1 TAB PO QDAY, #100 TAB.CHEW 4 Refills 03/29/15 Cholecalciferol (Vitamin D3) (VITAMIN D3) 1,000 Unit Tablet, 2 TAB PO QDAY 10/10/14 Calcium Carbonate/Vitamin D3 (CALCIUM 500 + D TABLET) 1 Each Tablet, 1 TAB PO QDAY 10/10/14 Mu-Vits-Min Th/Lycopene/Lutein (CENTRUM SILVER TABLET) 1 Each Tablet, 1 TAB PO QDAY 10/10/14 Allergies: Coded Allergies: erythromycin base (Verified Allergy, Mild, epigastric pain, 09/06/17) atorvastatin (Verified Adverse Reaction, Intermediate, muscle pain in legs., 09/06/17) WILBERTO Inhibitors (Verified Adverse Reaction, Mild, cough, 09/06/17) NSAIDS (Non-Steroidal Anti-Inflamma (Unverified Adverse Reaction, Mild, upset stomach, 09/06/17) valsartan (Verified Adverse Reaction, Unknown, ineffective, 09/06/17) Patient History: FH: COPD (chronic obstructive pulmonary disease) FATHER, , Age:62 FH: CO (myocardial infarction) FATHER, , Age:62 BROTHER, , Age:40 FH: hyperlipidemia FATHER, , Age:62 SISTER FH: hypertension FATHER, , Age:62 SISTER FH: renal cell carcinoma MOTHER, , Age:86 (kidney or pancreas) Gout FATHER, , Age:62 Hx Smoking: No Smoking Status: Never Smoker Exposure to Second Hand Smoke?: No Hx Alcohol Use: No Hx Substance Use Disorder: No Review of Systems Constitutional: No Fever, No Weight Loss, No Weight Gain, No Chills Neurological: Weakness, No Syncope, No Confusion, No Dizziness Eyes: No Vision Change ENT: Other, No Sinus Congestion, No Sore Throat Cardiovascular: Palpitations, No Chest Pain Respiratory: No Shortness of Breath, No Cough, No Wheezing Gastrointestinal: No Nausea, No Vomiting, No Diarrhea, No Dysphagia, No Constipation, No Early Satiety, No Hematemesis, No Hematochezia, No Melena, No Abdominal Pain Genitourinary: No Dysuria, No Hematuria Musculoskeletal: No Pain, No Sprain, No Strain Psychiatric: No Depression, No Anxiety Exam Vital Signs Vital Signs Date Time Temp Pulse Resp B/P (MAP) Pulse Ox O2 Delivery O2 Flow Rate FiO2 09/19/17 22:55 98.1 120 17 133/78 (96) 90 Room Air General Appearance: Alert, Awake, No Acute Distress, Afebrile Neuro: No Gross deficits Eyes: PERRLA ENT: Normal Cardiovascular: Other (A.fib with RVR) Respiratory: No Respiratory Distress Chest: No Masses GI: Abd Soft and Non-Tender Musculoskeletal: No Weakness/Pain Extremities: Soft and Non Tender, Pulses Integumentary: Skin Intact without Lesion / Mass Psych: Alert & Oriented X3, Appropriate Mood & Affect Medical Decision Making Data Points Result Diagram: 09/19/17201909/19/172019 Assessment and Plan Problems: (1) Atrial fibrillation with RVR Status: Acute Assessment & Plan: I will start her on Cardizem drip at 5mg/h and start Cardizem CD 120mg when her HR around 100. One to two hours after starting PO Cardizem I will stop her Cardizem drip if her VR remains below 100. I will check her Lipase and other blood work in am. I will stop her Amlodipine. I will give her Ativan for her sleep. I will manage her underlying medical problems accordingly during this hospitalization. I will resume her home medications. (2) Hypokalemia Status: Acute Assessment & Plan: I will start her on IVF NS with 40meq KCL at 100ml/h and KCL 20meq po bid and check her BMP and mag level. Central Venous Access Medical Necessity for Access: IV Access, Medication Administration Time Spent on Plan of Care: < 30 min Copies to: KATRINA WINTERS MD; SNOW ALVARADO MD Venous Thromboembolism VTE Risk Physician Assess for VTE Risk: Yes Patient's VTE Risk: Low VTE Diagnostic Test 2 Days Prior to Admit: No Antithrombotics Is Pt On Any Antithrombotics?: No Exam Sepsis Risk: No Definite Risk ALLEN CAMARILLO MD Sep 19, 2017 23:20
[2017-09-20] MEDS ORDERED: NS(*) 0.9% 1000 ML BAG 1,000 ML ONE (00:19)
[2017-09-20] MEDS ORDERED: LORazepam 2 MG/ML VIAL IVP PRN (00:35)
[2017-09-20] MEDS ORDERED: ACETAMINOPHEN 325 MG TAB PO PRN (00:55)
[2017-09-20] MEDS ORDERED: ONDANSETRON 4 MG/2 ML VIAL IVP PRN (00:55)
[2017-09-20] MEDS ORDERED: KCL 2 MEQ/ML 20 MEQ/10 ML VIAL 40 MEQ in NS(*) 0.9% 1000 ML BAG 1,000 ML IV SCH (00:55)
[2017-09-20] MEDS ORDERED: KCL 2 MEQ/ML 20 MEQ/10 ML VIAL ONE (01:22)
[2017-09-20] MEDS ORDERED: DILTIAZEM CD 120 MG CAPCR PO SCH (01:22)
[2017-09-20] MEDS ORDERED: KCL/NS* 20 MEQ/1000 ML PREMIX 1,000 ML IV ONE (01:31)
[2017-09-20] MEDS: POTASSIUM CHL 20 MEQ TABCR PO SCH ×2 (01:36→09:42)
[2017-09-20] MEDS ORDERED: POTA99TA6 PO (02:51)
[2017-09-20] MEDS: DILTIAZEM HCL* 100 MG ADDVIAL 100 MG in NS(*) 0.9% 100 ML ADDVANT BAG 100 ML IV SCH (05:16)
[2017-09-20 06:35] LABS: PLATELET COUNT, AUTOMATED 540 K/uL (150-450)
[2017-09-20 07:56] VITALS: BP 100/54
[2017-09-20 08:56] VITALS: Ht 162.6 cm; Wt 50.2 kg
[2017-09-20] MEDS ORDERED: DILTIAZEM 90 MG PO SCH (09:00)
[2017-09-20] MEDS ORDERED: ASPIRIN 81 MG ENTERIC COATED PO SCH (09:00)
[2017-09-20] MEDS ORDERED: ALLOPURINOL 100 MG TAB PO SCH (09:00)
[2017-09-20] MEDS ORDERED: PANTOPRAZOLE SOD 40 MG TABEC PO SCH (09:00)
[2017-09-20] MEDS ORDERED: DOCUSATE SODIUM 100 MG CAP PO SCH (09:00)
[2017-09-20] MEDS ORDERED: FERR325T24 PO (12:09)
[2017-09-20] MEDS ORDERED: DILT-145 PO (12:12)
[2017-09-20] MEDS ORDERED: POTA20TA94 PO (12:13)
[2017-09-20] MEDS ORDERED: MAGN400T4 PO (12:14)
--- NOTE | 2017-09-20 13:18 | EKG ---
FACILITY: [facility] - [place] PATIENT NAME: SAE FREY : [id number] MR: [id number] V: [id number] EXAM DATE: ORDERING PHYSICIAN: WALTER CONRAD TECHNOLOGIST: [place] Test Reason : A FIB Blood Pressure : / mmHG Vent. Rate : 138 BPM Atrial Rate : 125 BPM P-R Int : 000 ms QRS Dur : 082 ms QT Int : 324 ms P-R-T Axes : 000 082 -65 degrees QTc Int : 490 ms Atrial fibrillation with rapid ventricular response Marked ST abnormality, possible inferior subendocardial injury Abnormal ECG When compared with ECG of 11-SEP-2017 19:29, Atrial fibrillation has replaced Sinus rhythm Vent. rate has increased BY [address] now depressed in Inferior leads ST now depressed in Lateral leads T wave inversion now evident in Inferior leads Nonspecific T wave abnormality no longer evident in Anterior leads Confirmed by SNOW VERAS ([id number]) on 09/21/2017 3:02:34 PM Referred By: Confirmed By:SNOW VERAS
--- NOTE | 2017-09-20 21:30 | Hospitalist Depart ---
Discharge Summary Reason for Hosp/Final Diag: (1) Atrial fibrillation with RVR Status: Acute Hospital Course & Plan: Mrs. De La Garza is a 77 y.o. female with PMH of HTN, Dyslipidemia, Gout, GERD who was recently d/c'd from [facility] after having a long complicated course after having Lap. Bing complicated by Biloma requiring ICU course with multiple antibiotics. She also had high Lipase level but her MRCP was negative for stone. She developed A.fib during last hospitalization and she required beta palua and she converted to sinus rhythm. She was not d/c'd on any Beta Paula or Cardizem but she was on Amlodipine. She presented today to the ER with rapid heart beats. She 1st noticed around 6 PM and she denied any chest pain, shortness of breath, syncope, presyncope, lightheadedness, dizziness , diaphoresis or other concerns. Past medical history includes A. fib with rapid ventricular rate and she received cardioversion here in the ICU about a week ago by Dr. Corrales she has not yet been referred for an ablation. She was on Repatha subcutaneous self injections on 40 mg every 14 days for hyperlipidemia. Blood pressure at home was 134/89 despite her high heart rate. Pressures here are stable. She received medical cardioversion in the ER but her VR remained high in the range of 130's. I discussed the case with the ER-MD and admitted her for further evaluation and management. She is comfortable and without any complaint and wants to sleep. I will start her on Cardizem drip at 5mg/h and start Cardizem CD 120mg when her HR around 100. One to two hours after starting PO Cardizem I will stop her Cardizem drip if her VR remains below 100. I will check her Lipase and other blood work in am. I will stop her Amlodipine. I will give her Ativan for her sleep. I will manage her underlying medical problems accordingly during this hospitalization. I will resume her home medications. 09/20: Over night she responded very well to the management and her VR was in 60's. I will d/c her on Cardizem CD 90mg and stop her Amlodipine. She will follow her PCP, [employer] Engineer and surgeon. (2) Hypokalemia Status: Acute Hospital Course & Plan: I will start her on IVF NS with 40meq KCL at 100ml/h and KCL 20meq po bid and check her BMP and mag level. 09/20: Her K level has improved to>4 and I will prescribe her some KCL, FeSO4. Departure Weight (Pounds): 110 Weight (Ounces): 9.0 Result Diagram: 09/20/1762409/20/17624 Condition: Improved Discharge: Home, Self Care Time Spent: < 30 min Discharge Instructions Home Meds Active Scripts Trazodone Hcl (TRAZODONE HCL) 50 Mg Tablet, 50 MG PO QHS Y for insomnia, #90 TAB 2 Refills Prov:KATRINA WINTERS MD 03/31/17 Ranitidine Hcl (RANITIDINE HCL) 300 Mg Tablet, 300 MG PO QDAY, #90 TAB 1 Refill Prov:KATRINA WINTERS MD 03/17/17 Allopurinol (ALLOPURINOL) 100 Mg Tablet, 2 TAB PO QDAY, #180 TAB 4 Refills Prov:KATRINA WINTERS MD 11/27/16 Reported Medications Magnesium Oxide (MAG-OXIDE) 400 Mg Tablet, 400 MG PO BID for 5 Days, TAB 09/20/17 Potassium Chloride (POTASSIUM CHLORIDE) 20 Meq Tab.er.prt, 20 MEQ PO QDAY for 7 Days, TAB 09/20/17 Diltiazem Hcl (CARDIZEM CD) 180 Mg Cap.er.24h, 90 MG PO DAILY, #30 CAP 09/20/17 Ferrous Sulfate (IRON) 325 Mg Tablet, 325 MG PO BID, #60 TAB 09/20/17 Evolocumab (Repatha Syringe) 140 Mg/Ml Syringe, 140 MG SQ Q2WK 09/06/17 Aspirin (Children's Aspirin) 81 Mg Tab.chew, 1 TAB PO QDAY, #100 TAB.CHEW 4 Refills 03/29/15 Cholecalciferol (Vitamin D3) (VITAMIN D3) 1,000 Unit Tablet, 2 TAB PO QDAY 10/10/14 Calcium Carbonate/Vitamin D3 (CALCIUM 500 + D TABLET) 1 Each Tablet, 1 TAB PO QDAY 10/10/14 Mu-Vits-Min Th/Lycopene/Lutein (CENTRUM SILVER TABLET) 1 Each Tablet, 1 TAB PO QDAY 10/10/14 Discontinued Reported Medications Potassium Gluconate (POTASSIUM) 99 Mg Tablet, 594 MG PO BID 09/20/17 Amlodipine Besylate (AMLODIPINE BESYLATE) 5 Mg Tablet, 1 TAB PO BID, TAB 09/06/17 Diet: No Added Salt (GUANACO) Activity: As Tolerated Special Instructions: Follow up with Dr. Onofre in 1 week Follow up with PCP in 1-2 weeks. Follow up with [employer] Engineer for her Recurrent A.fib Venous Thromboembolism Antithrombotics Is Pt On Any Antithrombotics?: No ALLEN CAMARILLO MD Sep 20, 2017 21:30
== END 2017-09-20 12:25 | disposition home or self-care (01) | DRG 310 ==
LOC: ER 19:30 → MED 22:01
PROVIDERS: ADMIT Specialist; ATTEND Specialist
DX: I48.0 Paroxysmal atrial fibrillation (principal); I10 Essential (primary) hypertension; E87.6 Hypokalemia; E78.5 Hyperlipidemia, unspecified; K21.9 Gastro-esophageal reflux disease without esophagitis; M1A.9XX0 Chronic gout, unspecified, without tophus (tophi); Z90.49 Acquired absence of other specified parts of digestive tract; Z88.1 Allergy status to other antibiotic agents; Z88.8 Allergy status to other drugs, medicaments and biological substances; Z79.82 Long term (current) use of aspirin; Z90.710 Acquired absence of both cervix and uterus
CPT/HCPCS: 36415; 71010; 81001; 82040; 82247; 82310; 82374; 82435; 82565; 82947; 83690; 83735; 83880; 84075; 84132; 84155; 84295; 84450; 84460; 84484; 84520; 85025; 93005; 96365; 96366; 96375; 99285; J2060; J3480; J3490; J7030; J7050

== ENCOUNTER 2017-09-21 15:12 | Inpatient (IN) | payer MEDICARE ==
[2017-09-20 08:56] VITALS: Ht 162.6 cm; Wt 48.3 kg
[~2017-09-21] VITALS: Ht 162.6 cm; Wt 48.3 kg
[~2017-09-21 15:12] MED LIST changes: +DILT-145 PO; +FERR325T24 PO; +MAGN400T4 PO; +POTA20TA94 PO; +POTA99TA6 PO
--- NOTE | 2017-09-21 15:16 | ER Report ---
History and Physical Time Seen By MD: 15:15 HPI/ROS CC: Atrial fibrillation HPI: 77-year-old female with a past medical history most recently of atrial fibrillation on Cardizem was just discharged from the hospital 09/20/2017. That hospital note reads as follows. Mrs. De La Garza is a 77 y.o. female with PMH of HTN, Dyslipidemia, Gout, GERD who was recently d/c'd from [facility] after having a long complicated course after having Lap. Bing complicated by Biloma requiring ICU course with multiple antibiotics. She also had high Lipase level but her MRCP was negative for stone. She developed A.fib during last hospitalization and she required beta paula and she converted to sinus rhythm. She was not d/c'd on any Beta Paula or Cardizem but she was on Amlodipine. She presented today to the ER with rapid heart beats. She 1st noticed around 6 PM and she denied any chest pain, shortness of breath, syncope, presyncope, lightheadedness, dizziness, diaphoresis or other concerns. Past medical history includes A. fib with rapid ventricular rate and she received cardioversion here in the ICU about a week ago by Dr. Corrales she has not yet been referred for an ablation. She was on Repatha subcutaneous self injections on 40 mg every 14 days for hyperlipidemia. Blood pressure at home was 134/89 despite her high heart rate. Pressures here are stable. She received medical cardioversion in the ER but her VR remained high in the range of 130's. I discussed the case with the ER-MD and admitted her for further evaluation and management. She is comfortable and without any complaint and wants to sleep. Today she presents to the emergency department with sudden onset of atrial fibrillation at 11 AM. The patient denies any chest pain chest pressure, diaphoresis, nausea vomiting, she is short of breath. She also is quite frustrated because this is the 4th event this month since her surgery. I discussed with her that we would get her atrial fibrillation under control. ROS: 12 point review of systems essentially negative other than what's mentioned in history of present illness. NURSES AND OLD MEDICAL RECORDS: Reviewed PMH: Reviewed SURGICAL HX: Reviewed FAMILY HX: Noncontributory SOCIAL HX: She is lives at home denies smoking alcohol or illicit drugs. VITAL SIGNS: Reviewed CONSTITUTIONAL: 77-year-old female in minimal to moderate distress. She is anxious. PHYSICAL EXAM: HEENT: Pupils equal round reactive to light and accommodate, EOMI, tympanic membranes pearly white umbo present with good light reflex. Lips dry mucous membranes moist gums nonbleeding uvula midline and rises equally with phonation, oropharynx noninjected, teeth intact. NECK: Neck supple, thyroid not appreciated, anterior and posterior cervical lymphadenopathy not appreciated. Trachea midline and rises equally with phonation. CARDIAC: S1-S2 irregularly irregular tachycardic rate rhythm no murmurs rubs or gallops. LUNGS: Lungs clear bilaterally posteriorly in all new. Good air movement. ABDOMEN: Abdomen soft, nondistended, bowel sounds active in all 4 quadrants, no bruits noted, no CVA tenderness. MUSCULOSKELETAL: Strength 5 out of 5 x 4 extremities, no deformities noted. NEUROLOGIC: Patient alert and oriented by 3 Allergies: Coded Allergies: erythromycin base (Verified Allergy, Mild, epigastric pain, 09/06/17) atorvastatin (Verified Adverse Reaction, Intermediate, muscle pain in legs., 09/06/17) WILBERTO Inhibitors (Verified Adverse Reaction, Mild, cough, 09/06/17) NSAIDS (Non-Steroidal Anti-Inflamma (Unverified Adverse Reaction, Mild, upset stomach, 09/06/17) valsartan (Verified Adverse Reaction, Unknown, ineffective, 09/06/17) Home Meds Active Scripts Trazodone Hcl (TRAZODONE HCL) 50 Mg Tablet, 50 MG PO QHS Y for insomnia, #90 TAB 2 Refills Prov:KATRINA WINTERS MD 03/31/17 Ranitidine Hcl (RANITIDINE HCL) 300 Mg Tablet, 300 MG PO QDAY, #90 TAB 1 Refill Prov:KATRINA WINTERS MD 03/17/17 Allopurinol (ALLOPURINOL) 100 Mg Tablet, 2 TAB PO QDAY, #180 TAB 4 Refills Prov:KATRINA WINTERS MD 11/27/16 Reported Medications Magnesium Oxide (MAG-OXIDE) 400 Mg Tablet, 400 MG PO BID for 5 Days, TAB 09/20/17 Potassium Chloride (POTASSIUM CHLORIDE) 20 Meq Tab.er.prt, 20 MEQ PO QDAY for 7 Days, TAB 09/20/17 Diltiazem Hcl (CARDIZEM CD) 180 Mg Cap.er.24h, 90 MG PO DAILY, #30 CAP 09/20/17 Ferrous Sulfate (IRON) 325 Mg Tablet, 325 MG PO BID, #60 TAB 09/20/17 Evolocumab (Repatha Syringe) 140 Mg/Ml Syringe, 140 MG SQ Q2WK 09/06/17 Aspirin (Children's Aspirin) 81 Mg Tab.chew, 1 TAB PO QDAY, #100 TAB.CHEW 4 Refills 03/29/15 Cholecalciferol (Vitamin D3) (VITAMIN D3) 1,000 Unit Tablet, 2 TAB PO QDAY 10/10/14 Calcium Carbonate/Vitamin D3 (CALCIUM 500 + D TABLET) 1 Each Tablet, 1 TAB PO QDAY 10/10/14 Mu-Vits-Min Th/Lycopene/Lutein (CENTRUM SILVER TABLET) 1 Each Tablet, 1 TAB PO QDAY 10/10/14 Discontinued Reported Medications Potassium Gluconate (POTASSIUM) 99 Mg Tablet, 594 MG PO BID 09/20/17 Amlodipine Besylate (AMLODIPINE BESYLATE) 5 Mg Tablet, 1 TAB PO BID, TAB 09/06/17 Hx Smoking: No Smoking Status: Never Smoker Exposure to Second Hand Smoke?: No Hx Substance Use Disorder: No Hx Alcohol Use: No Constitutional Vital Sign - Last 24 Hours 09/21/17 15:22 Pulse 149 Resp 24 Pulse Ox 92 O2 Delivery Room Air Medical Decision Making Data Points Result Diagram: 09/21/17 1600 09/21/17 1600 Laboratory Hematology Test 09/21/17 00:00 09/21/17 16:00 Red Blood Count 4.05 M/uL (4.17-5.56) Mean Corpuscular Volume 85.4 fL (80.0-96.0) Mean Corpuscular Hemoglobin 29.1 pg (26.0-33.0) Mean Corpuscular Hemoglobin Concent 34.1 g/dL (32.0-36.0) Red Cell Distribution Width 14.1 % (11.5-14.5) Mean Platelet Volume 6.7 fL (7.2-11.1) Neutrophils (%) (Auto) 80.4 % (39.4-72.5) Lymphocytes (%) (Auto) 10.1 % (17.6-49.6) Monocytes (%) (Auto) 6.9 % (4.1-12.4) Eosinophils (%) (Auto) 1.7 % (0.4-6.7) Basophils (%) (Auto) 0.9 % (0.3-1.4) Nucleated RBC Relative Count (auto) 0.0 /100WBC Neutrophils # (Auto) 8.5 K/uL (2.0-7.4) Lymphocytes # (Auto) 1.1 K/uL (1.3-3.6) Monocytes # (Auto) 0.7 K/uL (0.3-1.0) Eosinophils # (Auto) 0.2 K/uL (0.0-0.5) Basophils # (Auto) 0.1 K/uL (0.0-0.1) Nucleated RBC Absolute Count (auto) 0.01 K/uL Peripheral Blood Smear Yes Y/N Sodium Level 142 mmol/L (137-145) Potassium Level 3.4 mmol/L (3.5-5.0) Chloride Level 104 mmol/L (98-107) Carbon Dioxide Level 26 mmol/L (22-31) Blood Urea Nitrogen 13 mg/dl (7-18) Creatinine 0.70 mg/dl (0.52-1.04) Glomerular Filtration Rate Calc > 60.0 Random Glucose 144 mg/dl (75-110) Calcium Level 9.6 mg/dl (8.4-10.2) Magnesium Level 1.9 mg/dl (1.7-2.2) Total Bilirubin 0.7 mg/dl (0.2-1.3) Aspartate Amino Transf (AST/SGOT) 31 U/L (0-35) Alanine Aminotransferase (ALT/SGPT) 53 U/L (0-56) Alkaline Phosphatase 202 U/L (0-126) Troponin I < 0.012 ng/ml B-Type Natriuretic Peptide 348 pg/ml (0-100) Total Protein 7.6 gm/dl (6.3-8.2) Albumin 3.7 g/dl (3.5-5.0) Chemistry Test 09/21/17 00:00 09/21/17 16:00 White Blood Count 10.6 k/uL (4.5-11.0) Red Blood Count 4.05 M/uL (4.17-5.56) Hemoglobin 11.8 g/dL (12.0-16.0) Hematocrit 34.6 % (34.0-47.0) Mean Corpuscular Volume 85.4 fL (80.0-96.0) Mean Corpuscular Hemoglobin 29.1 pg (26.0-33.0) Mean Corpuscular Hemoglobin Concent 34.1 g/dL (32.0-36.0) Red Cell Distribution Width 14.1 % (11.5-14.5) Platelet Count 661 K/uL (150-450) Mean Platelet Volume 6.7 fL (7.2-11.1) Neutrophils (%) (Auto) 80.4 % (39.4-72.5) Lymphocytes (%) (Auto) 10.1 % (17.6-49.6) Monocytes (%) (Auto) 6.9 % (4.1-12.4) Eosinophils (%) (Auto) 1.7 % (0.4-6.7) Basophils (%) (Auto) 0.9 % (0.3-1.4) Nucleated RBC Relative Count (auto) 0.0 /100WBC Neutrophils # (Auto) 8.5 K/uL (2.0-7.4) Lymphocytes # (Auto) 1.1 K/uL (1.3-3.6) Monocytes # (Auto) 0.7 K/uL (0.3-1.0) Eosinophils # (Auto) 0.2 K/uL (0.0-0.5) Basophils # (Auto) 0.1 K/uL (0.0-0.1) Nucleated RBC Absolute Count (auto) 0.01 K/uL Peripheral Blood Smear Yes Y/N Glomerular Filtration Rate Calc > 60.0 Calcium Level 9.6 mg/dl (8.4-10.2) Magnesium Level 1.9 mg/dl (1.7-2.2) Total Bilirubin 0.7 mg/dl (0.2-1.3) Aspartate Amino Transf (AST/SGOT) 31 U/L (0-35) Alanine Aminotransferase (ALT/SGPT) 53 U/L (0-56) Alkaline Phosphatase 202 U/L (0-126) Troponin I < 0.012 ng/ml B-Type Natriuretic Peptide 348 pg/ml (0-100) Total Protein 7.6 gm/dl (6.3-8.2) Albumin 3.7 g/dl (3.5-5.0) Coagulation Test 09/21/17 00:00 EKG/Imaging EKG Interpretation Atrial fibrillation with RVR with possible inferior ischemia ventricular rate 155 bpm, GA interval not measurable, QRS duration 78 ms, QT 288 ms, QTC 462 ms. Imaging Chest x-ray reveals: IMPRESSION: Opacity at the right lung base has mildly progressed since the comparison. There is a small effusion and atelectasis, but superimposed aspiration or developing infection is not excluded. Report Dictated By: Ishmael Blake MD at 09/21/2017 4:41 PM ED Course/Re-evaluation ED Course Patient received normal saline fluid hydration, Cardizem 20 mg IV with little change. Patient received another 25 mg Cardizem IV. Patient had been anxious received Ativan 1 mg which she is appreciative of. Patient remains in atrial fibrillation with RVR at a rate of 115 120. She received 2 g of magnesium IV and Klor-Con 40 mEq by mouth. Patient received Lopressor 5 mg IV. Patient with right lower lobe pneumonia new-onset. She received Levaquin 750 mg by mouth. I discussed the case with Dr. Medrano the hospitalist. Patient will be admitted for atrial fibrillation with RVR and new-onset pneumonia. Re-evaluation Medical decision making acute [place], recurrent atrial fibrillation with RVR, pneumonia, CHF. Decision to Disposition Date: Sep 21, 2017 Decision to Disposition Time: 17:34 Depart Departure Latest Vital Signs Vital Signs Date Time Temp Pulse Resp B/P (MAP) Pulse Ox O2 Delivery O2 Flow Rate FiO2 09/21/17 15:22 149 24 92 Room Air Impression: Primary Impression: Atrial fibrillation with RVR Additional Impression: Pneumonia Condition: Improved Disposition: Admitted from ER Referrals: KATRINA WINTERS MD (PCP) Problem Qualifiers Additional Impression: Pneumonia Pneumonia type: due to unspecified organism Laterality: right Lung location : lower lobe of lung Qualified Codes: J18.1 - Lobar pneumonia, unspecified organism EPIFANIO MEMBRENO MD Sep 21, 2017 15:16
[2017-09-21] MEDS ORDERED: NS(*) 0.9% 1000 ML BAG 1,000 ML IV ONE (15:21)
[2017-09-21] MEDS ORDERED: LORazepam 2 MG/ML VIAL IVP ONE (15:25)
[2017-09-21] MEDS ORDERED: DILTIAZEM 5 MG/ML 5ML IVPUSH IVP ONE ×2 (15:25→16:25)
--- NOTE | 2017-09-21 15:58 | EKG ---
FACILITY: [facility] [place] PATIENT NAME: SAE FREY : [id number] MR: [id number] V: [id number] EXAM DATE: ORDERING PHYSICIAN: EPIFANIO MEMBRENO TECHNOLOGIST: PATRICIA Test Reason : HIGH HR Blood Pressure : / mmHG Vent. Rate : 155 BPM Atrial Rate : 163 BPM P-R Int : 000 ms QRS Dur : 078 ms QT Int : 288 ms P-R-T Axes : 000 068 -86 degrees QTc Int : 462 ms Atrial fibrillation with rapid ventricular response ST and T wave abnormality, consider inferior ischemia or digitalis effect Abnormal ECG No previous ECGs available Confirmed by SNOW VERAS ([id number]) on 09/22/2017 12:32:01 AM Referred By: HASEEB Confirmed By:SNOW VERAS
[2017-09-21 16:13] LABS: PLATELET COUNT, AUTOMATED 661 K/uL (150-450)
[2017-09-21] MEDS ORDERED: MAGNESIUM SUL* 2 GM/50 ML IVPB 50 ML IVPB ONE (16:40)
[2017-09-21] MEDS ORDERED: POTASSIUM CHL PWDR 20 MEQ PKT PO ONE (16:45)
--- NOTE | 2017-09-21 16:46 | RADIOLOGY IMAGING REPORT ---
FACILITY: [facility] [place] PATIENT NAME: Meenakshi De La Garza : 1940 MR: [id number] V: [id number] EXAM DATE: ORDERING PHYSICIAN: EPIFANIO MEMBRENO TECHNOLOGIST: Location: [facility] Patient: Meenakshi De La Garza : 1940 Visit/Account:[id number] Date of Sevice: 09/21/2017 INDICATION: Chest Pain. DATE: 09/21/2017 4:41 PM. TECHNIQUE: CHEST SINGLE AP COMPARISON: Chest radiograph of September 19, 2017. FINDINGS: Stable cardiac silhouette. Opacity at the right lung base partially obscures the hemidiaphr agm, and this appears mildly progressed since the comparison. There is a small right-sided effusion. IMPRESSION: Opacity at the right lung base has mildly progressed since the comparison. There is a small effusion and atelectasis, but superimposed aspiration or developing infection is not excluded. Report Dictated By: Ishmael Blake MD at 09/21/2017 4:41 PM Report E-Signed By: Ishmael Blake MD at 09/21/2017 4:42 PM [id number]
[2017-09-21] MEDS ORDERED: METOPROLOL TART 5 MG/5 ML VIAL IVP ONE (17:10)
[2017-09-21 19:41] VITALS: BP 127/84
[2017-09-21] MEDS ORDERED: INFLUENZA VIRUS VAC 0.5 ML SYR IM ONLY ONE (20:25)
[2017-09-21] MEDS ORDERED: traZODone HCL 50 MG TAB PO PRN (20:25)
--- NOTE | 2017-09-21 20:53 | History & Physical ---
History of Present Illness Chief Complaint Rapid heart rate History of Present Illness This patient presented to the emergency room complaining of a rapid heart rate. She was first admitted in the middle part of August for a cholecystectomy. She was then readmitted and required another surgery for a bile leak. She developed atrial fibrillation during that admission and spent several days in the ICU. She was again discharged, but returned the next day for recurrent atrial fibrillation. She was then placed on oral diltiazem and released. She returned today with the same complaints of rapid heart rate. History Problems: (1) Biloma following surgery Status: Chronic (2) Cholecystitis Status: Chronic (3) Atrial fibrillation with RVR Status: Chronic (4) Gouty arthropathy Status: Chronic (5) Hypercholesterolemia Status: Chronic (6) S/P laparoscopic cholecystectomy Status: Chronic Home Meds Active Scripts Trazodone Hcl (TRAZODONE HCL) 50 Mg Tablet, 50 MG PO QHS Y for insomnia, #90 TAB 2 Refills Prov:KATRINA WINTERS MD 03/31/17 Ranitidine Hcl (RANITIDINE HCL) 300 Mg Tablet, 300 MG PO QDAY, #90 TAB 1 Refill Prov:KATRINA WINTERS MD 03/17/17 Allopurinol (ALLOPURINOL) 100 Mg Tablet, 2 TAB PO QDAY, #180 TAB 4 Refills Prov:KATRINA WINTERS MD 11/27/16 Reported Medications Magnesium Oxide (MAG-OXIDE) 400 Mg Tablet, 400 MG PO BID for 5 Days, TAB 09/20/17 Potassium Chloride (POTASSIUM CHLORIDE) 20 Meq Tab.er.prt, 20 MEQ PO QDAY for 7 Days, TAB 09/20/17 Diltiazem Hcl (CARDIZEM CD) 180 Mg Cap.er.24h, 90 MG PO DAILY, #30 CAP 09/20/17 Ferrous Sulfate (IRON) 325 Mg Tablet, 325 MG PO BID, #60 TAB 09/20/17 Evolocumab (Repatha Syringe) 140 Mg/Ml Syringe, 140 MG SQ Q2WK 09/06/17 Aspirin (Children's Aspirin) 81 Mg Tab.chew, 1 TAB PO QDAY, #100 TAB.CHEW 4 Refills 03/29/15 Cholecalciferol (Vitamin D3) (VITAMIN D3) 1,000 Unit Tablet, 2 TAB PO QDAY 10/10/14 Calcium Carbonate/Vitamin D3 (CALCIUM 500 + D TABLET) 1 Each Tablet, 1 TAB PO QDAY 10/10/14 Mu-Vits-Min Th/Lycopene/Lutein (CENTRUM SILVER TABLET) 1 Each Tablet, 1 TAB PO QDAY 10/10/14 Discontinued Reported Medications Potassium Gluconate (POTASSIUM) 99 Mg Tablet, 594 MG PO BID 09/20/17 Amlodipine Besylate (AMLODIPINE BESYLATE) 5 Mg Tablet, 1 TAB PO BID, TAB 09/06/17 Allergies: Coded Allergies: erythromycin base (Verified Allergy, Mild, epigastric pain, 09/06/17) atorvastatin (Verified Adverse Reaction, Intermediate, muscle pain in legs., 09/06/17) WILBERTO Inhibitors (Verified Adverse Reaction, Mild, cough, 09/06/17) NSAIDS (Non-Steroidal Anti-Inflamma (Unverified Adverse Reaction, Mild, upset stomach, 09/06/17) valsartan (Verified Adverse Reaction, Unknown, ineffective, 09/06/17) Patient History: FH: COPD (chronic obstructive pulmonary disease) FATHER, , Age:62 FH: CO (myocardial infarction) FATHER, , Age:62 BROTHER, , Age:40 FH: hyperlipidemia FATHER, , Age:62 SISTER FH: hypertension FATHER, , Age:62 SISTER FH: renal cell carcinoma MOTHER, , Age:86 (kidney or pancreas) Gout FATHER, , Age:62 Hx Smoking: No Smoking Status: Never Smoker Exposure to Second Hand Smoke?: No Hx Alcohol Use: No Hx Substance Use Disorder: No Review of Systems All Systems Reviewed/Normal: Yes, Except as Noted Cardiovascular: Palpitations Exam Vital Signs Vital Signs Date Time Temp Pulse Resp B/P (MAP) Pulse Ox O2 Delivery O2 Flow Rate FiO2 09/21/17 19:20 34 107/71 (83) 95 09/21/17 19:05 121 09/21/17 16:00 1.0 09/21/17 15:22 Room Air Neuro: No Gross deficits Eyes: PERRLA Cardiovascular: No JVD, Other (Rapid irregular pulse.) Respiratory: Clear to Auscultation GI: Abd Soft and Non-Tender Extremities: No Edema Integumentary: No Cyanosis Medical Decision Making Data Points Result Diagram: 09/21/17 1600 09/21/17 1600 EKG / Imaging EKG Interpretation EKG reviewed. Imaging Chest x-ray reviewed. Assessment and Plan Problems: (1) Atrial fibrillation with RVR Status: Chronic Assessment & Plan: She has continued to develop rapid atrial fibrillation despite being on a low dose of diltiazem. She was given a dose of IV diltiazem in the emergency department without any significant change. She was last controlled on a 10mg/hr diltiazem infusion. This would equate to a much higher dose of oral diltiazem. We have placed her on an oral dose of 360mg and will follow her heart rate through the evening. We will plan to restart a diltiazem drip if she fails to gain adequate control. She will follow up with her adjunct faculty Dr. Vyas to discuss further options if the medication is unsuccessful at managing her symptoms. We also discussed anticoagulation options to prevent stroke associated with her AFIB. She has elected to start on Xarelto. She had an echocardiogram during her last admission so we will not repeat another. (2) Abnormal chest xray Assessment & Plan: She has had an right sided consolidation and effusion dating back to her second admission. She has already done a full course of broad spectrum antibiotics without significant change. She denies any new fever , cough, or shortness of breath. These findings are likely inflammatory changes related to her gallbladder surgery and subsequent bile leak and pancreatitis. Her lipase was elevated on 09/20, but continues to improve from her peak levels. (3) Biloma following surgery Status: Chronic Assessment & Plan: She underwent cholecystectomy on 09/06 and a repeat procedure for a bile leak on 09/08. She also developed a pancreatitis following the second surgery. (4) Low TSH level Status: Chronic Assessment & Plan: Her TSH was noted to be suppressed while she was in the ICU , but had been normal a few months prior to that. We previously recommended a repeat TSH in 4 weeks. (5) Hyperlipidemia Status: Acute Assessment & Plan: She does receive injections with Repatha through her cardiologists office. (6) Gouty arthropathy Status: Chronic Assessment & Plan: She is on chronic treatment with allopurinol. Central Venous Access Medical Necessity for Access: IV Access, Medication Administration Venous Thromboembolism Antithrombotics Is Pt On Any Antithrombotics?: Yes Exam Sepsis Risk: No Definite Risk SNOW VERAS DO Sep 21, 2017 20:53
[2017-09-21] MEDS ORDERED: LORazepam 1 MG TAB PO PRN (20:55)
[2017-09-21] MEDS: FERROUS SULFATE 325 MG TAB PO SCH (21:20)
[2017-09-21] MEDS: RIVAROXABAN 10 MG TAB PO SCH (21:20)
[2017-09-21] MEDS: DILTIAZEM CD 180 MG CAPCR PO SCH (21:20)
[2017-09-21 23:47] VITALS: BP 98/61
[2017-09-22 03:14] VITALS: BP 100/56
[2017-09-22 06:25] LABS: PLATELET COUNT, AUTOMATED 573 K/uL (150-450)
[2017-09-22 07:26] VITALS: BP 121/74
[2017-09-22] MEDS ORDERED: RIVA20TA PO (08:32)
[2017-09-22] MEDS ORDERED: POTA20TA94 PO (08:32)
[2017-09-22] MEDS ORDERED: LOR1 PO (08:32)
[2017-09-22] MEDS ORDERED: DILT360C24 PO (08:32)
[2017-09-22] MEDS: FERROUS SULFATE 325 MG TAB PO SCH (08:37)
[2017-09-22] MEDS: DILTIAZEM CD 180 MG CAPCR PO SCH (08:37)
[2017-09-22] MEDS: RIVAROXABAN 10 MG TAB PO SCH (08:37)
--- NOTE | 2017-09-22 08:56 | Hospitalist Depart ---
Discharge Summary Reason for Hosp/Final Diag: (1) Atrial fibrillation with RVR Status: Chronic Hospital Course & Plan: She has continued to develop rapid atrial fibrillation despite being on a low dose of diltiazem. She was given a dose of IV diltiazem in the emergency department without any significant change. She was last controlled on a 10mg/hr diltiazem infusion. This would equate to a much higher dose of oral diltiazem. We have placed her on an oral dose of 360mg, and with this dose we were able to achieve adequate rate control. She converted to sinus rhythm early this morning. We have also started her on treatment with Xarelto. She will follow up with her sql ssrs ssis developer to discuss other treatment options. (2) Abnormal chest xray Hospital Course & Plan: She has had an right sided consolidation and effusion dating back to her second admission. She has already done a full course of broad spectrum antibiotics without significant change. She denies any new fever , cough, or shortness of breath. These findings are likely inflammatory changes related to her gallbladder surgery and subsequent bile leak and pancreatitis. Her lipase was elevated on 09/20, but continues to improve from her peak levels. (3) Biloma following surgery Status: Chronic Hospital Course & Plan: She underwent cholecystectomy on 09/06 and a repeat procedure for a bile leak on 09/08. She also developed a pancreatitis following the second surgery. (4) Low TSH level Status: Chronic Hospital Course & Plan: Her TSH was noted to be suppressed while she was in the ICU, but had been normal a few months prior to that. We previously recommended a repeat TSH in 4 weeks. (5) Hyperlipidemia Status: Acute Hospital Course & Plan: She does receive injections with Repatha through her cardiologists office. (6) Gouty arthropathy Status: Chronic Hospital Course & Plan: She is on chronic treatment with allopurinol. Departure Latest Vital Signs Vital Signs 09/21/17 09/22/17 09/22/17 20:00 03:14 07:26 Temp 96.5 Pulse 72 Resp 14 B/P (MAP) 121/74 (90) Pulse Ox 90 O2 Delivery Room Air O2 Flow Rate 1.0 Weight (Pounds): 106 Weight (Ounces): 9.0 Result Diagram: 09/22/17 0555 09/22/17 05 Condition: Improved Discharge: Home, Self Care Discharge Instructions Home Meds Active Scripts Rivaroxaban 20 Mg (XARELTO 20 MG) 20 Mg Tablet, 20 MG PO QDAY, #30 TAB Prov:EDASNOW VINCENT DO 09/22/17 Diltiazem Hcl (CARDIZEM CD) 360 Mg Cap.er.24h, 360 MG PO QDAY, #30 CAP Prov:SNOW VERAS DO 09/22/17 Lorazepam (LORAZEPAM) 1 Mg Tab, 1 MG PO QHS Y for INSOMNIA, #10 TAB Prov:SNOW VERAS DO 09/22/17 Potassium Chloride (POTASSIUM CHLORIDE) 20 Meq Tab.er.prt, 20 MEQ PO QDAY, #30 TAB Prov:SNOW VERAS DO 09/22/17 Ranitidine Hcl (RANITIDINE HCL) 300 Mg Tablet, 300 MG PO QDAY, #90 TAB 1 Refill Prov:KATRINA WINTERS MD 03/17/17 Allopurinol (ALLOPURINOL) 100 Mg Tablet, 2 TAB PO QDAY, #180 TAB 4 Refills Prov:KATRINA WINTERS MD 11/27/16 Reported Medications Magnesium Oxide (MAG-OXIDE) 400 Mg Tablet, 400 MG PO BID for 5 Days, TAB 09/20/17 Ferrous Sulfate (IRON) 325 Mg Tablet, 325 MG PO BID, #60 TAB 09/20/17 Evolocumab (Repatha Syringe) 140 Mg/Ml Syringe, 140 MG SQ Q2WK 09/06/17 Cholecalciferol (Vitamin D3) (VITAMIN D3) 1,000 Unit Tablet, 2 TAB PO QDAY 10/10/14 Calcium Carbonate/Vitamin D3 (CALCIUM 500 + D TABLET) 1 Each Tablet, 1 TAB PO QDAY 10/10/14 Mu-Vits-Min Th/Lycopene/Lutein (CENTRUM SILVER TABLET) 1 Each Tablet, 1 TAB PO QDAY 10/10/14 Discontinued Reported Medications Diltiazem Hcl (CARDIZEM CD) 180 Mg Cap.er.24h, 90 MG PO DAILY, #30 CAP 09/20/17 Aspirin (Children's Aspirin) 81 Mg Tab.chew, 1 TAB PO QDAY, #100 TAB.CHEW 4 Refills 03/29/15 Potassium Gluconate (POTASSIUM) 99 Mg Tablet, 594 MG PO BID 09/20/17 Amlodipine Besylate (AMLODIPINE BESYLATE) 5 Mg Tablet, 1 TAB PO BID, TAB 09/06/17 Discontinued Scripts Trazodone Hcl (TRAZODONE HCL) 50 Mg Tablet, 50 MG PO QHS Y for insomnia, #90 TAB 2 Refills Prov:KATRINA WINTERS MD 03/31/17 Diet: Regular Activity: As Tolerated Copies to: DAVID MACKENZIE MD Venous Thromboembolism Antithrombotics Is Pt On Any Antithrombotics?: Yes SNOW VERAS DO Sep 22, 2017 08:56
[2017-09-22] MEDS ORDERED: ALLOPURINOL 100 MG TAB PO SCH (09:00)
[2017-09-22] MEDS ORDERED: CHOLECALCIFEROL 1000 UNIT TAB PO SCH (09:00)
[2017-09-22] MEDS ORDERED: RANITIDINE HCL 150 MG TAB PO SCH (09:00)
== END 2017-09-22 09:26 | disposition home or self-care (01) | DRG 310 ==
LOC: ER 15:20 → MED 18:21
PROVIDERS: ADMIT Family Medicine; ATTEND Family Medicine
DX: I48.0 Paroxysmal atrial fibrillation (principal); I10 Essential (primary) hypertension; K21.9 Gastro-esophageal reflux disease without esophagitis; Z88.8 Allergy status to other drugs, medicaments and biological substances; Z90.49 Acquired absence of other specified parts of digestive tract; E78.5 Hyperlipidemia, unspecified; M1A.9XX0 Chronic gout, unspecified, without tophus (tophi); Z90.710 Acquired absence of both cervix and uterus; Z88.1 Allergy status to other antibiotic agents
CPT/HCPCS: 36415; 71010; 82040; 82247; 82310; 82374; 82435; 82565; 82947; 83735; 83880; 84075; 84132; 84155; 84295; 84450; 84460; 84484; 84520; 85025; 85379; 93005; 96361; 96365; 96375; 96376; 99285; J2060; J3475; J3490; J7030

== ENCOUNTER → 2017-09-23 | Outpatient (CLI) | payer MEDICARE ==
[2017-09-20 08:56] VITALS: BMI 18.9
[~2017-09-23] MED LIST changes: +DILT360C24 PO; +LOR1 PO; +RIVA20TA PO
[2017-09-23 10:47] LABS: PLATELET COUNT, AUTOMATED 677 K/uL (150-450)
== END ==
LOC: LAB 10:17
PROVIDERS: ATTEND Surgery
DX: E87.6 Hypokalemia (principal); K85.90 Acute pancreatitis without necrosis or infection, unspecified; I48.91 Unspecified atrial fibrillation; K81.9 Cholecystitis, unspecified
CPT/HCPCS: 36415; 82040; 82247; 82248; 82310; 82374; 82435; 82565; 82947; 83690; 84075; 84132; 84155; 84295; 84450; 84460; 84520; 85025

== ENCOUNTER → 2017-09-27 | Outpatient (CLI) | payer MEDICARE ==
[2017-09-20 08:56] VITALS: BMI 18.9
== END ==
LOC: LAB 08:08
PROVIDERS: ATTEND Surgery
DX: E87.6 Hypokalemia (principal)
CPT/HCPCS: 36415; 82310; 82374; 82435; 82565; 82947; 84132; 84295; 84520

== ENCOUNTER → 2017-10-06 | Outpatient (CLI) | payer MEDICARE ==
[2017-09-20 08:56] VITALS: BMI 18.9
[2017-10-06 08:26] LABS: PLATELET COUNT, AUTOMATED 474 K/uL (150-450)
== END ==
LOC: LAB 08:05
PROVIDERS: ATTEND Surgery
DX: I48.91 Unspecified atrial fibrillation (principal); T81.89XA Other complications of procedures, not elsewhere classified, initial encounter
CPT/HCPCS: 36415; 82040; 82247; 82248; 82310; 82374; 82435; 82565; 82947; 83690; 84075; 84132; 84155; 84295; 84450; 84460; 84520; 85025

== ENCOUNTER → 2017-10-13 | Outpatient (CLI) | payer MEDICARE ==
[2017-09-20 08:56] VITALS: BMI 18.9
== END ==
LOC: LAB 07:59
PROVIDERS: ATTEND Surgery
DX: I48.91 Unspecified atrial fibrillation (principal); E87.6 Hypokalemia
CPT/HCPCS: 36415; 82310; 82374; 82435; 82565; 82947; 84132; 84295; 84520

== ENCOUNTER → 2017-10-17 | Outpatient (CLI) | payer MEDICARE ==
[2017-09-20 08:56] VITALS: BMI 18.9
== END ==
LOC: LAB 08:07
PROVIDERS: ATTEND Surgery
DX: E78.6 Lipoprotein deficiency (principal)
CPT/HCPCS: 36415; 82310; 82374; 82435; 82565; 82947; 84132; 84295; 84520

== ENCOUNTER 2017-10-21 22:46 | Emergency (ER) | payer MEDICARE ==
[2017-09-20 08:56] VITALS: Ht 162.6 cm; Wt 48.3 kg
[~2017-10-21] VITALS: Ht 162.6 cm; Wt 48.3 kg
[~2017-10-21 22:46] MED LIST changes: -DILT90TA19 PO
[2017-10-21] MEDS ORDERED: DILT90TA19 PO (23:03)
--- NOTE | 2017-10-21 23:07 | ER Report ---
History and Physical Time Seen By MD: 23:03 Hx. of Stated Complaint: C/O A-FIB HPI/ROS CHIEF COMPLAINT: A. fib HISTORY OF PRESENT ILLNESS: 76-year-old female with A. fib reports rapid heart rate in the 130s for approximately one hour that resolved just prior to arrival during the episode she experienced dizziness and lightheadedness denies chest pain shortness of breath abdominal pain extremity pain or other concerns. She had a dry cough for a few weeks. She saw her library circulation clerk this morning and extended release Cardizem was changed to 270 mg once daily with improvement in her heart rate which was in the 40s. Denies syncope or presyncope. No other concerns or complaints today. REVIEW OF SYSTEMS: Constitutional: No fever, no chills. Eyes: No discharge. ENT: No sore throat. Cardiovascular: No chest pain, no palpitations. Respiratory: No cough, no shortness of breath. Gastrointestinal: No abdominal pain, no vomiting. Genitourinary: No hematuria. Musculoskeletal: No back pain. Skin: No rashes. Neurological: No headache. Allergies: Coded Allergies: erythromycin base (Verified Allergy, Mild, epigastric pain, 10/21/17) atorvastatin (Verified Adverse Reaction, Intermediate, muscle pain in legs., 10/21/17) WILBERTO Inhibitors (Verified Adverse Reaction, Mild, cough, 10/21/17) NSAIDS (Non-Steroidal Anti-Inflamma (Verified Adverse Reaction, Mild, upset stomach, 10/21/17) valsartan (Verified Adverse Reaction, Unknown, ineffective, 10/21/17) Home Meds Active Scripts Potassium Chloride (POTASSIUM CHLORIDE) 20 Meq Tab.er.prt, 1.5 TAB PO QDAY, #60 TAB 3 Refills Prov:SNOW ALVARADO MD 10/13/17 Lorazepam (LORAZEPAM) 1 Mg Tab, 1 TAB PO QDAY Y for INSOMNIA, #20 TAB 0 Refills Prov:SNOW ALVARADO MD 10/03/17 Rivaroxaban 20 Mg (XARELTO 20 MG) 20 Mg Tablet, 20 MG PO QDAY, #30 TAB Prov:SNOW VERAS DO 09/22/17 Ranitidine Hcl (RANITIDINE HCL) 300 Mg Tablet, 300 MG PO QDAY, #90 TAB 1 Refill Prov:KATRINA WINTERS MD 03/17/17 Allopurinol (ALLOPURINOL) 100 Mg Tablet, 2 TAB PO QDAY, #180 TAB 4 Refills Prov:KATRINA WINTERS MD 11/27/16 Reported Medications Diltiazem Hcl (DILTIAZEM HCL) 90 Mg Tablet, 90 MG PO TID 10/21/17 Evolocumab (Repatha Syringe) 140 Mg/Ml Syringe, 140 MG SQ Q2WK 09/06/17 Cholecalciferol (Vitamin D3) (VITAMIN D3) 1,000 Unit Tablet, 2 TAB PO QDAY 10/10/14 Calcium Carbonate/Vitamin D3 (CALCIUM 500 + D TABLET) 1 Each Tablet, 1 TAB PO QDAY 10/10/14 Mu-Vits-Min Th/Lycopene/Lutein (CENTRUM SILVER TABLET) 1 Each Tablet, 1 TAB PO QDAY 10/10/14 Discontinued Reported Medications Magnesium Oxide (MAG-OXIDE) 400 Mg Tablet, 400 MG PO BID for 5 Days, TAB 09/20/17 Ferrous Sulfate (IRON) 325 Mg Tablet, 325 MG PO BID, #60 TAB 09/20/17 Discontinued Scripts Diltiazem Hcl (CARDIZEM CD) 360 Mg Cap.er.24h, 360 MG PO QDAY, #30 CAP Prov:SNOW VERAS DO 09/22/17 Hx Smoking: No Smoking Status: Never Smoker Exposure to Second Hand Smoke?: No Hx Substance Use Disorder: No Hx Alcohol Use: No Constitutional Vital Sign - Last 24 Hours 10/21/17 22:56 Pulse 124 Resp 20 B/P (MAP) 152/76 Pulse Ox 94 O2 Delivery Room Air Physical Exam General Appearance: The patient is alert, has no immediate need for airway protection and no signs of toxicity. No acute distress Eyes: Pupils equal and round no pallor or injection. ENT, Mouth: Mucous membranes are moist. Respiratory: There are no retractions, lungs are clear to auscultation. Cardiovascular: Regular rate and rhythm. No murmurs gallops or rubs Gastrointestinal: Abdomen is soft and non tender, no masses, bowel sounds normal. Neurological: Normal Skin: Warm and dry, no rashes. Musculoskeletal: Neck is supple non tender. Extremities are nontender, nonswollen and have full range of motion. No edema DIFFERENTIAL DIAGNOSIS: After history and physical exam differential diagnosis was considered for doubt acute coronary syndrome or serious vascular disease such as aortic dissection. A. fib with RVR transient episode etiology is unclear patient denies medication noncompliance recent medication change may be the culprit symptoms resolved spontaneously will monitor in the ED and check for electrolytes. Medical Decision Making Data Points Result Diagram: 10/21/17230910/21/172309 Laboratory Hematology Test 10/21/17 23:10 10/21/17 23:45 Red Blood Count 4.50 M/uL (4.17-5.56) Mean Corpuscular Volume 86.5 fL (80.0-96.0) Mean Corpuscular Hemoglobin 29.2 pg (26.0-33.0) Mean Corpuscular Hemoglobin Concent 33.8 g/dL (32.0-36.0) Red Cell Distribution Width 15.1 % (11.5-14.5) Mean Platelet Volume 7.0 fL (7.2-11.1) Neutrophils (%) (Auto) 49.4 % (39.4-72.5) Lymphocytes (%) (Auto) 27.6 % (17.6-49.6) Monocytes (%) (Auto) 11.1 % (4.1-12.4) Eosinophils (%) (Auto) 11.4 % (0.4-6.7) Basophils (%) (Auto) 0.5 % (0.3-1.4) Nucleated RBC Relative Count (auto) 0.0 /100WBC Neutrophils # (Auto) 3.2 K/uL (2.0-7.4) Lymphocytes # (Auto) 1.8 K/uL (1.3-3.6) Monocytes # (Auto) 0.7 K/uL (0.3-1.0) Eosinophils # (Auto) 0.7 K/uL (0.0-0.5) Basophils # (Auto) 0.0 K/uL (0.0-0.1) Nucleated RBC Absolute Count (auto) 0.00 K/uL Peripheral Blood Smear Yes Y/N Sodium Level 139 mmol/L (137-145) Potassium Level 3.9 mmol/L (3.5-5.0) Chloride Level 101 mmol/L (98-107) Carbon Dioxide Level 26 mmol/L (22-31) Blood Urea Nitrogen 18 mg/dl (7-18) Creatinine 0.60 mg/dl (0.52-1.04) Glomerular Filtration Rate Calc > 60.0 Random Glucose 123 mg/dl (75-110) Calcium Level 9.5 mg/dl (8.4-10.2) Phosphorus Level 3.7 mg/dl (2.5-4.5) Magnesium Level 1.8 mg/dl (1.7-2.2) Total Bilirubin 0.5 mg/dl (0.2-1.3) Aspartate Amino Transf (AST/SGOT) 38 U/L (0-35) Alanine Aminotransferase (ALT/SGPT) 43 U/L (0-56) Alkaline Phosphatase 130 U/L (0-126) Troponin I < 0.012 ng/ml B-Type Natriuretic Peptide 58 pg/ml (0-100) Total Protein 8.0 gm/dl (6.3-8.2) Albumin 4.1 g/dl (3.5-5.0) Urine Color Straw Urine Clarity Clear Urine pH 6.0 pH (4.8-9.5) Urine Specific [place] 1.009 Urine Protein Negative mg/dL (NEGATIVE) Urine Glucose (UA) Negative mg/dL (NEGATIVE) Urine Ketones Negative mg/dL (NEGATIVE) Urine Blood Negative (NEGATIVE) Urine Nitrite Negative (NEGATIVE) Urine Bilirubin Negative (NEGATIVE) Urine Urobilinogen Negative mg/dL (0.2-1.9) Urine Leukocyte Esterase Negative (NEGATIVE) Urine RBC 1 /HPF (0-2/HPF) Urine WBC None /HPF (0-5/HPF) Urine Squamous Epithelial Cells None /LPF (</=FEW) Urine Bacteria Negative /HPF (NONE-FEW) Urine Mucus None /HPF (NONE-FEW) Influenza Virus Type A (PCR) Negative (NEGATIVE) Influenza Virus Type B (PCR) Negative (NEGATIVE) Chemistry Test 10/21/17 23:10 10/21/17 23:45 White Blood Count 6.4 k/uL (4.5-11.0) Red Blood Count 4.50 M/uL (4.17-5.56) Hemoglobin 13.1 g/dL (12.0-16.0) Hematocrit 38.9 % (34.0-47.0) Mean Corpuscular Volume 86.5 fL (80.0-96.0) Mean Corpuscular Hemoglobin 29.2 pg (26.0-33.0) Mean Corpuscular Hemoglobin Concent 33.8 g/dL (32.0-36.0) Red Cell Distribution Width 15.1 % (11.5-14.5) Platelet Count 354 K/uL (150-450) Mean Platelet Volume 7.0 fL (7.2-11.1) Neutrophils (%) (Auto) 49.4 % (39.4-72.5) Lymphocytes (%) (Auto) 27.6 % (17.6-49.6) Monocytes (%) (Auto) 11.1 % (4.1-12.4) Eosinophils (%) (Auto) 11.4 % (0.4-6.7) Basophils (%) (Auto) 0.5 % (0.3-1.4) Nucleated RBC Relative Count (auto) 0.0 /100WBC Neutrophils # (Auto) 3.2 K/uL (2.0-7.4) Lymphocytes # (Auto) 1.8 K/uL (1.3-3.6) Monocytes # (Auto) 0.7 K/uL (0.3-1.0) Eosinophils # (Auto) 0.7 K/uL (0.0-0.5) Basophils # (Auto) 0.0 K/uL (0.0-0.1) Nucleated RBC Absolute Count (auto) 0.00 K/uL Peripheral Blood Smear Yes Y/N Glomerular Filtration Rate Calc > 60.0 Calcium Level 9.5 mg/dl (8.4-10.2) Phosphorus Level 3.7 mg/dl (2.5-4.5) Magnesium Level 1.8 mg/dl (1.7-2.2) Total Bilirubin 0.5 mg/dl (0.2-1.3) Aspartate Amino Transf (AST/SGOT) 38 U/L (0-35) Alanine Aminotransferase (ALT/SGPT) 43 U/L (0-56) Alkaline Phosphatase 130 U/L (0-126) Troponin I < 0.012 ng/ml B-Type Natriuretic Peptide 58 pg/ml (0-100) Total Protein 8.0 gm/dl (6.3-8.2) Albumin 4.1 g/dl (3.5-5.0) Urine Color Straw Urine Clarity Clear Urine pH 6.0 pH (4.8-9.5) Urine Specific [place] 1.009 Urine Protein Negative mg/dL (NEGATIVE) Urine Glucose (UA) Negative mg/dL (NEGATIVE) Urine Ketones Negative mg/dL (NEGATIVE) Urine Blood Negative (NEGATIVE) Urine Nitrite Negative (NEGATIVE) Urine Bilirubin Negative (NEGATIVE) Urine Urobilinogen Negative mg/dL (0.2-1.9) Urine Leukocyte Esterase Negative (NEGATIVE) Urine RBC 1 /HPF (0-2/HPF) Urine WBC None /HPF (0-5/HPF) Urine Squamous Epithelial Cells None /LPF (</=FEW) Urine Bacteria Negative /HPF (NONE-FEW) Urine Mucus None /HPF (NONE-FEW) Influenza Virus Type A (PCR) Negative (NEGATIVE) Influenza Virus Type B (PCR) Negative (NEGATIVE) Urinalysis Test 10/21/17 23:45 Urine Color Straw Urine Clarity Clear Urine pH 6.0 pH (4.8-9.5) Urine Specific [place] 1.009 Urine Protein Negative mg/dL (NEGATIVE) Urine Glucose (UA) Negative mg/dL (NEGATIVE) Urine Ketones Negative mg/dL (NEGATIVE) Urine Blood Negative (NEGATIVE) Urine Nitrite Negative (NEGATIVE) Urine Bilirubin Negative (NEGATIVE) Urine Urobilinogen Negative mg/dL (0.2-1.9) Urine Leukocyte Esterase Negative (NEGATIVE) Urine RBC 1 /HPF (0-2/HPF) Urine WBC None /HPF (0-5/HPF) Urine Squamous Epithelial Cells None /LPF (</=FEW) Urine Bacteria Negative /HPF (NONE-FEW) Urine Mucus None /HPF (NONE-FEW) EKG/Imaging EKG Interpretation EKG was performed and 2017 that demonstrated atrial flutter referrable AV block with PACs and ventricular rate of 100 normal QRS and QT intervals and a possible age indeterminate septal infarct. No ST or T-wave changes to suggest ischemia or infarction. Impression A flutter Monitor Interpretation: Atrial Flutter ED Course/Re-evaluation ED Course Plan of care was agreed upon prior to orders placed. No recurrent rapid ventricular rate in the emergency room. Patient reassured. Some labs including TSH around during the day and she will follow-up with PCP. She has appointment with cardiology tomorrow. Decision to Disposition Date: Oct 22, 2017 Decision to Disposition Time: 01:11 Depart Departure Latest Vital Signs Vital Signs Date Time Temp Pulse Resp B/P (MAP) Pulse Ox O2 Delivery O2 Flow Rate FiO2 10/21/17 22:56 124 20 152/76 94 Room Air Impression: Primary Impression: Atrial fibrillation with RVR Condition: Improved Disposition: HOME OR SELF-CARE Referrals: KATRINA WINTERS MD (PCP) Patient Instructions: A-fib (Atrial Fibrillation) (ED) WALTER CONRAD MD Oct 21, 2017 23:07
[2017-10-21] MEDS ORDERED: NS(*) 0.9% 1000 ML BAG 1,000 ML IV ONE (23:25)
--- NOTE | 2017-10-21 23:39 | EKG ---
FACILITY: [facility] PATIENT NAME: SAE FREY : [id number] MR: [id number] V: [id number] EXAM DATE: ORDERING PHYSICIAN: WALTER CONRAD TECHNOLOGIST: HIMANSHU Ledbetter Reason : AFIB Blood Pressure : / mmHG Vent. Rate : 100 BPM Atrial Rate : 250 BPM P-R Int : 000 ms QRS Dur : 088 ms QT Int : 362 ms P-R-T Axes : 000 037 058 degrees QTc Int : 466 ms Atrial flutter with variable AV block Poor R wave progression anteriorly Abnormal ECG Confirmed by FLORENTIN WOODALL ([id number]) on 10/22/2017 3:59:00 PM Referred By: Confirmed By:FLORENTIN WOODALL
[2017-10-21 23:40] LABS: PLATELET COUNT, AUTOMATED 354 K/uL (150-450)
--- NOTE | 2017-10-22 00:20 | RADIOLOGY IMAGING REPORT ---
FACILITY: [facility] PATIENT NAME: Meenakshi De La Garza : 1940 MR: [id number] V: [id number] EXAM DATE: ORDERING PHYSICIAN: WALTER CONRAD TECHNOLOGIST: Location: [facility] [place] Patient: Meenakshi De La Garza : 1940 Visit/Account:[id number] Date of Sevice: 10/21/2017 CHEST SINGLE AP 10/21/2017 23:25 hours. HISTORY: Wheezing and dyspnea. Evaluate for edema. Shortness of breath. Cough. COMPARISON: 09/21/2017 and studies dating to 04/03/2016. TECHNIQUE: Portable AP view of the chest. FINDINGS: Tubes/lines/hardware: There are external chest leads. Pulmonary: There is linear scarring or atelectasis in the right lateral lung base. Left lung is clear . There is no pneumothorax or pleural effusion. Cardiomediastinal: Cardiac and mediastinal silhouettes are within normal limits. There is mild aortic calcification. Bones/soft tissues: No acute osseous abnormality. There is mild multilevel degenerative change of the spine. There is a mild rightward curvature of the thoracic spine, and there is a mild leftward curva ture of the thoracolumbar spine. The visible abdomen is normal. IMPRESSION: 1. Mild linear atelectasis or scarring at the right base. No evidence of pulmonary edema. Report Dictated By: Ama Owen at 10/22/2017 12:13 AM Report E-Signed By: Ama Owen at 10/22/2017 12:15 AM WSN:[id number]
[2017-10-22 00:40] VITALS: BP 130/96
== END 2017-10-22 01:24 | disposition home or self-care (01) ==
LOC: ER 22:56
DX: I48.2 Chronic atrial fibrillation (principal); R06.02 Shortness of breath
CPT/HCPCS: 71045; 81001; 83735; 83880; 84100; 84443; 84484; 85025; 87502; 93005; 96360; 96361; 99284; J7030; 82040; 82247; 82310; 82374; 82435; 82565; 82947; 84075; 84132; 84155; 84295; 84450; 84460; 84520

== ENCOUNTER → 2017-10-21 | Outpatient (CLI) | payer MEDICARE ==
[2017-09-20 08:56] VITALS: BMI 18.9
[~2017-10-21] MED LIST changes: +DILT90TA19 PO
== END ==
LOC: LAB 08:02
PROVIDERS: ATTEND Surgery
DX: I48.91 Unspecified atrial fibrillation (principal)
CPT/HCPCS: 36415; 82310; 82374; 82435; 82565; 82947; 84132; 84295; 84520

== ENCOUNTER → 2017-10-28 | Outpatient (CLI) | payer MEDICARE ==
[2017-09-20 08:56] VITALS: BMI 18.9
[~2017-10-28] MED LIST changes: +DILT90TA19 PO
--- NOTE | 2017-10-29 19:40 | RADIOLOGY IMAGING REPORT ---
FACILITY: [facility] PATIENT NAME: SAE FREY : [id number] MR: [id number] V: [id number] EXAM DATE: ORDERING PHYSICIAN: CYRIL AYOUB TECHNOLOGIST: Marcelina Pena EXAMINATION:TWO-DIMENSIONAL ECHOCARDIOGRAPH REASON:PAROXYSMAL ATRIAL FIBRILATION 2D Measurements (normal values in centimeters) LV endLV endRV endVent.LV PostAorticLeftPercent DiastolicSystolicDiastolicSeptumWallRootAtriumShortening (3.5-5.7)(0.9-2.6)(0.6-1.1)(0.6-1.1)(2.0-3.7)(1.9-4.0)(25-35%) [id number] STROKE VOLUME: 32ml ESTIMATED EJECTION FRACTION:64% PARASTERNAL LONG AXIS: The patient appears to be in atrial fibrillation. No thrombi are noted and the left atrial appendage is not seen. The chamber sizes all appear to be normal with the right ventricle being the upper range of normal in size. Color examination of the valves reveals trace of mitral & tricuspid insufficiency present. Aortic valve & mitral valve both appear to open normally. PARASTERNAL SHORT AXIS: Overall left ventricular function again appears to be normal. No specific wall motion abnormalities are noted. Aortic valve is trileaflet in configuration & appears to open normally. Color examination of the valves reveals trace of tricuspid insufficiency & a trace of pulmonic insufficiency present. APICAL FOUR AND TWO CHAMBER: Normal left ventricular ejection fraction. Patient is probably in sinus rhythm at this point. Aortic valve area & mitral valve area both measure within normal ranges at 1.9 & 2.5cm2 respectively. Left atrial volume & right atrial volume measure within normal ranges at 28 & 19ml/m2. Trace amount of tricuspid insufficiency is noted. The tricuspid regurgitation Vmax measures 3.53m/sec. Trace to mild amount of mitral insufficiency is noted. SUBCOSTAL VIEW: No pericardial effusion is noted. No atrioseptal or ventriculoseptal defects were appreciated. Doppler examination of the mitral valve is diastole does reveal the A wave > E wave. IVC is normal in size. OVERALL IMPRESSION: 1. Normal left ventricular ejection fraction of 64% with a Grade 1/4 decrease in diastolic function. 2. The patient originally appeared to be in atrial fibrillation but it could just have been artifact. Certainly by the end of the examination patient was in normal sinus rhythm. 3. There are normal chamber sizes with the right ventricle being the upper range of normal in size. 4. No thrombi are noted in any of the chambers but the left atrial appendage is not seen. 5. A trileaflet aortic valve with no abnormalities. 6. Trace to mild amount of mitral insufficiency with a mild amount of tricuspid insufficiency with estimated right ventricular systolic pressures of 53mm Hg which does include an estimated right atrial pressure of 3mm Hg indicating moderate pulmonary hypertension,& increased right ventricular systolic pressures. 7. Trace of pulmonic insufficiency. 8. In comparison the examination done on 09/09/17, the only change has been the right ventricular systolic pressures have decreased from 61 to 53mm Hg. No other changes were noted. Dictated by: Almas Daigle M.D. on 10/28/2017 at 19:53 Transcribed by: MADDY on 10/29/2017 at 13:50 Approved by: Almas Daigle M.D. on 10/29/2017 at 19:39 [facility]
== END ==
LOC: US 01:38
PROVIDERS: ATTEND Internal Medicine
DX: I34.0 Nonrheumatic mitral (valve) insufficiency (principal); I07.1 Rheumatic tricuspid insufficiency; I27.20 Pulmonary hypertension, unspecified; I37.1 Nonrheumatic pulmonary valve insufficiency
CPT/HCPCS: 93306

== ENCOUNTER → 2017-10-30 | Outpatient (CLI) | payer MEDICARE ==
[2017-09-20 08:56] VITALS: BMI 18.9
== END ==
LOC: LAB 07:55
PROVIDERS: ATTEND Surgery
DX: I48.91 Unspecified atrial fibrillation (principal); E87.6 Hypokalemia
CPT/HCPCS: 36415; 82310; 82374; 82435; 82565; 82947; 84132; 84295; 84520

== ENCOUNTER → 2017-11-07 | Outpatient (CLI) | payer MEDICARE ==
[2017-09-20 08:56] VITALS: BMI 18.9
[~2017-11-07] MED LIST changes: +DRON400T4 PO
--- NOTE | 2017-11-07 14:51 | EKG ---
[facility] PATIENT NAME: SAE FREY : [id number] MR: [id number] V: [id number] EXAM DATE: ORDERING PHYSICIAN: SNOW ALVARADO TECHNOLOGIST: LIBERTY Test Reason : PALPITATIONS Blood Pressure : / mmHG Vent. Rate : 055 BPM Atrial Rate : 055 BPM P-R Int : 160 ms QRS Dur : 088 ms QT Int : 464 ms P-R-T Axes : 037 060 038 degrees QTc Int : 443 ms Sinus bradycardia with marked sinus arrhythmia with occasional premature ventricular complexes Septal infarct (cited on or before 07-NOV-2017) Abnormal ECG When compared with ECG of 21-OCT-2017 22:52, Sinus rhythm has replaced Atrial flutter Vent. rate has decreased BY 45 BPM Referred By: CHRISTIANO Confirmed By:
== END ==
LOC: CARD 11:35
PROVIDERS: ATTEND Internal Medicine
DX: R00.2 Palpitations (principal); R94.31 Abnormal electrocardiogram [ECG] [EKG]

== ENCOUNTER → 2017-11-12 | Outpatient (CLI) | payer MEDICARE ==
[2017-09-20 08:56] VITALS: BMI 18.9
== END ==
LOC: LAB 07:42
PROVIDERS: ATTEND Internal Medicine
DX: E78.2 Mixed hyperlipidemia (principal)
CPT/HCPCS: 36415; 82040; 82247; 82310; 82374; 82435; 82465; 82565; 82947; 83718; 84075; 84132; 84155; 84295; 84450; 84460; 84478; 84520

== ENCOUNTER → 2017-12-05 | Outpatient (CLI) | payer MEDICARE ==
[2017-09-20 08:56] VITALS: BMI 18.9
== END ==
LOC: LAB 07:33
PROVIDERS: ATTEND Surgery
DX: I48.91 Unspecified atrial fibrillation (principal); R25.2 Cramp and spasm
CPT/HCPCS: 36415; 82310; 82374; 82435; 82565; 82947; 83735; 84100; 84132; 84295; 84520

== ENCOUNTER → 2017-12-19 | Outpatient (CLI) | payer MEDICARE ==
[2017-09-20 08:56] VITALS: BMI 18.9
[2017-12-19 09:05] LABS: LDL CHOLESTEROL 44 mg/dl
== END ==
LOC: LAB 08:11
PROVIDERS: ATTEND Internal Medicine
DX: E78.2 Mixed hyperlipidemia (principal)
CPT/HCPCS: 36415; 82040; 82247; 82310; 82374; 82435; 82465; 82565; 82947; 83718; 84075; 84132; 84155; 84295; 84450; 84460; 84478; 84520

== ENCOUNTER → 2017-12-29 | Outpatient (CLI) | payer MEDICARE ==
[2017-09-20 08:56] VITALS: BMI 18.9
[2017-12-29 15:03] LABS: PLATELET COUNT, AUTOMATED 282 K/uL (150-450)
== END ==
LOC: LAB 14:42
PROVIDERS: ATTEND Internal Medicine
DX: R53.83 Other fatigue (principal); I48.91 Unspecified atrial fibrillation; E78.00 Pure hypercholesterolemia, unspecified; R25.2 Cramp and spasm
CPT/HCPCS: 36415; 82728; 83540; 83550; 84439; 84443; 85025

== ENCOUNTER → 2018-03-31 | Outpatient (CLI) | payer MEDICARE ==
[2017-09-20 08:56] VITALS: BMI 18.9
[~2018-03-31] MED LIST changes: -ASPI-816 PO; +ASPI-870 PO; -RANI-324 PO; +RANI-366 PO
[2018-03-31 08:57] LABS: PLATELET COUNT, AUTOMATED 262 K/uL (150-450)
[2018-03-31 09:04] LABS: LDL CHOLESTEROL 39 mg/dl
== END ==
LOC: LAB 08:34
PROVIDERS: ATTEND Internal Medicine
DX: I48.91 Unspecified atrial fibrillation (principal); R94.6 Abnormal results of thyroid function studies; I10 Essential (primary) hypertension; E78.5 Hyperlipidemia, unspecified
CPT/HCPCS: 36415; 81001; 82040; 82247; 82310; 82374; 82435; 82465; 82565; 82947; 83718; 84075; 84132; 84155; 84295; 84443; 84450; 84460; 84478; 84520; 85025

== ENCOUNTER → 2018-04-06 | Outpatient (CLI) | payer MEDICARE ==
[2017-09-20 08:56] VITALS: BMI 18.9
[~2018-04-06] MED LIST changes: +MAGN200T3 PO; -TRAZ-156 PO; +TRAZ50TA34 PO
--- NOTE | 2018-04-07 11:20 | RADIOLOGY IMAGING REPORT ---
FACILITY: [facility] PATIENT NAME: MEENAKSHI FREY : [id number] MR: [id number] V: [id number] EXAM DATE: [id number] ORDERING PHYSICIAN: KATRINA WINTERS TECHNOLOGIST: Meenakshi Ruiz PROCEDURE:BILATERAL DIGITAL SCREENING MAMMOGRAM WITH CAD ASSISTED INTERPRETATION & 3D TOMOSYNTHESIS COMPARISON:Prior mammograms 04/04/17 & 04/03/16. INDICATIONS:SCREENING FINDINGS: The breast tissue demonstrates scattered fibroglandular densities. There is no dominant mass, suspicious cluster of microcalcifications or persistent areas of architectural distortion. DIAGNOSTIC CATEGORY 1--NEGATIVE. RECOMMENDATIONS: ROUTINE MAMMOGRAM AND CLINICAL EVALUATION IN 1 YEAR. IMPRESSION: BIRADS 1: Negative. Dictated by: Gerard Burdick M.D. on 04/07/2018 at 10:52 Transcribed by: FINESSE on 04/07/2018 at 11:01 Approved by: Gerard Burdick M.D. on 04/07/2018 at 11:19 [facility]
== END ==
LOC: MAMO 00:23
PROVIDERS: ATTEND Internal Medicine
DX: Z12.31 Encounter for screening mammogram for malignant neoplasm of breast (principal)
CPT/HCPCS: 77063; 77067

== ENCOUNTER → 2018-04-06 | Outpatient (CLI) | payer MEDICARE ==
[2017-09-20 08:56] VITALS: BMI 18.9
--- NOTE | 2018-04-06 16:05 | RADIOLOGY IMAGING REPORT ---
FACILITY: [facility] PATIENT NAME: Meenakshi De La Garza : 1940 MR: [id number] V: [id number] EXAM DATE: ORDERING PHYSICIAN: KATRINA WINTERS TECHNOLOGIST: Location: [facility] [place] Patient: Meenakshi De La Garza : 1940 Visit/Account:[id number] Date of Sevice: 04/06/2018 SCAPULA LEFT Indication: Soft tissue lump. Comparison: None available Findings: 2 views of the left scapula are obtained. No osseous abnormality of the scapula is seen. 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 No discrete soft ti ssue abnormality is seen. IMPRESSION: 1. No acute osseous abnormality left scapula. 2. No discrete soft tissue abnormality inferior to the scapula. Further imaging could be performed with CT or MRI with marker placement at the site of clinical concern. Report Dictated By: Yomi Yarbrough at 04/06/2018 3:58 PM Report E-Signed By: Yomi Yarbrough at 04/06/2018 4:01 PM WSN:[id number]
== END ==
LOC: RAD 14:02
PROVIDERS: ATTEND Internal Medicine
DX: M19.012 Primary osteoarthritis, left shoulder (principal)

== ENCOUNTER → 2018-05-08 | Outpatient (CLI) | payer MEDICARE ==
[2017-09-20 08:56] VITALS: BMI 18.9
[2018-05-08 09:25] LABS: PLATELET COUNT, AUTOMATED 293 K/uL (150-450)
== END ==
LOC: LAB 09:02
PROVIDERS: ATTEND Internal Medicine
DX: I48.91 Unspecified atrial fibrillation (principal); R53.83 Other fatigue; R25.2 Cramp and spasm; E78.00 Pure hypercholesterolemia, unspecified
CPT/HCPCS: 36415; 82040; 82247; 82310; 82374; 82435; 82565; 82947; 83735; 84075; 84132; 84155; 84295; 84450; 84460; 84520; 85025

== ENCOUNTER → 2018-12-14 | Outpatient (CLI) | payer MEDICARE ==
[2017-09-20 08:56] VITALS: BMI 18.9
[~2018-12-14] MED LIST changes: +AMLO-125 PO; -AMLO-96 PO; +CHOL4PAC2 PO; +DOXY-179 PO
== END ==
LOC: LAB 08:52
PROVIDERS: ATTEND Internal Medicine
DX: I10 Essential (primary) hypertension (principal); R25.2 Cramp and spasm
CPT/HCPCS: 36415; 83735

== ENCOUNTER → 2018-12-14 | Outpatient (CLI) | payer MEDICARE ==
[2017-09-20 08:56] VITALS: BMI 18.9
[2018-12-14 10:46] LABS: LDL CHOLESTEROL 26 mg/dl
== END ==
LOC: LAB 08:54
PROVIDERS: ATTEND Internal Medicine
DX: E78.2 Mixed hyperlipidemia (principal)
CPT/HCPCS: 82040; 82247; 82310; 82374; 82435; 82465; 82565; 82947; 83718; 84075; 84132; 84155; 84295; 84450; 84460; 84478; 84520

== ENCOUNTER → 2019-03-31 | Outpatient (CLI) | payer MEDICARE ==
[2017-09-20 08:56] VITALS: BMI 18.9
[~2019-03-31] MED LIST changes: -DIPH0.5D12 IM; +DIPH0.5S2 IM; -RANI-366 PO; +RANI-54 PO; -TRAZ50TA34 PO; +TRAZ50TA52 PO
[2019-03-31 09:07] LABS: PLATELET COUNT, AUTOMATED 276 K/uL (150-450)
[2019-03-31 12:18] LABS: LDL CHOLESTEROL 44 mg/dl
== END ==
LOC: LAB 08:23
PROVIDERS: ATTEND Internal Medicine
DX: I48.91 Unspecified atrial fibrillation (principal); I25.10 Atherosclerotic heart disease of native coronary artery without angina pectoris; R53.83 Other fatigue; R94.6 Abnormal results of thyroid function studies; E78.5 Hyperlipidemia, unspecified; I10 Essential (primary) hypertension; R25.2 Cramp and spasm
CPT/HCPCS: 36415; 81001; 82040; 82247; 82310; 82374; 82435; 82465; 82565; 82728; 82947; 83540; 83550; 83718; 83735; 84075; 84132; 84155; 84295; 84439; 84443; 84450; 84460; 84478; 84520; 85025

== ENCOUNTER → 2019-05-13 | Outpatient (CLI) | payer MEDICARE ==
[2017-09-20 08:56] VITALS: BMI 18.9
--- NOTE | 2019-05-13 15:30 | RADIOLOGY IMAGING REPORT ---
FACILITY: [facility] [place] PATIENT NAME: MEENAKSHI FREY : [id number] MR: [id number] V: [id number] EXAM DATE: [id number] ORDERING PHYSICIAN: KATRINA WINTERS TECHNOLOGIST: Meenakshi Ruiz PROCEDURE: BILATERAL DIGITAL SCREENING MAMMOGRAM WITH CAD ASSISTED INTERPRETATION & 3D TOMOSYNTHESIS REASON FOR STUDY: Screening. COMPARISON: 04/06/18, priors to 04/19/13. VIEWS OBTAINED: Bilateral 2D & 3D full field CC & MLO projections. BREAST DENSITY: Breasts have scattered fibroglandular parenchymal densities. MAMMOGRAM FINDINGS: There are no mammographic findings concerning for malignancy. No significant interval change. IMPRESSION: BIRADS 1: Negative. DIAGNOSTIC CATEGORY 1--NEGATIVE. RECOMMENDATIONS: ROUTINE MAMMOGRAM IN 1YR AND CLINICAL EVALUATION. Dictated by: Humza Gallego on 05/13/2019 at 14:52 Transcribed by: FINESSE on 05/13/2019 at 15:03 Approved by: Humza Gallego on 05/13/2019 at 15:25 [facility]
== END ==
LOC: MAMO 03:52
PROVIDERS: ATTEND Internal Medicine
DX: Z12.31 Encounter for screening mammogram for malignant neoplasm of breast (principal)
CPT/HCPCS: 77063; 77067